=== PATIENT | male | born 1955 | race Caucasian/White ===

== ENCOUNTER 2025-01-12 03:57 | Inpatient (IN) | payer MEDICARE, OTHER, SELFPAY ==
[2025-01-11 19:46] VITALS: BP 130/57
[2025-01-11 22:20] VITALS: BMI 28.0
[2025-01-11 22:35] LABS: Hematocrit 22.4 % (39.0-52.0); Hemoglobin 7.2 g/dL (13.0-18.0); Mean Corp Hgb Conc. 32.1 g/dL (33.0-37.0); Mean Corpuscular Volume 98.2 fL (80.0-94.0); Nucleated Red Blood Cells % 0 % (-); Platelet Count 58 10^3/uL (130-400); Red Cell Dist. Width 15.1 % (11.5-14.5)
[2025-01-11 22:50] LABS: ALT (SGPT) 18 U/L (0-50); AST (SGOT) 30 U/L (17-59); Albumin 3.8 g/dl (3.5-5.0); Alkaline Phosphatase 141 U/L (38-126); Blood Urea Nitrogen 20 mg/dl (9-20); Calcium 8.4 mg/dl (8.4-10.2); Carbon Dioxide 28 mmol/L (22-30); Chloride 104 mmol/L (98-107); Estimated Creatinine Clearance 72 ml/min; Glucose 164 mg/dl (70-99); Potassium 4.7 mmol/L (3.5-5.1); Sodium 136 mmol/L (135-145); Total Protein 6.9 g/dl (6.3-8.2); eGFR > 60.00
[2025-01-11 22:52] LABS: Troponin I < 0.012 ng/ml
[2025-01-11 23:00] VITALS: BP 109/57
[2025-01-11] MEDS: OFIRMEV 100 IV (23:23)
--- NOTE | 2025-01-11 23:24 | ED.GENMED ---
History of Present Illness
General
Chief Complaint: Chest Pain
Time Seen by Provider: 01/11/25 21:55
History of Present Illness
History of Present Illness:
69-year-old male with history of oropharyngeal cancer currently on admission, cirrhosis associated nonalcoholic fatty liver disease, hypertension, hyperlipidemia, former tobacco abuse, and [id number]-cugedywtt diabetes presents to the emergency
department for evaluation of abrupt onset of central chest pain radiating to the mid back. Began 2-3 hours ago, now improved. Also noted to be febrile on arrival. Does have a mild cough and chest congestion. Has chronic lower extremity edema which
he states is unchanged. Also of note underwent esophageal variceal banding at [facility] 3 weeks ago and was treated with a 1 week course of cefuroxime. Has required blood transfusions due to persistent bleeding from esophageal varices, most
recently last week he denies any sore throat, low back pain, or dysuria
Past History
Past History
ED Past Medical History: CAD, GERD, HTN, Hypercholesterolemia, NIDDM and Other (Chronic back pain, chronic neck pain)
ED Past Surgical History: Cardiac (Stents) and Tonsilectomy
Social History
Tobacco: Former smoker
Alcohol: None
Drug: None
Review of Systems
Review of Systems
Allergies reviewed?: Yes
All Other Systems: ROS reviewed and negative except as documented in HPI and ROS
Phy Exam
Physical Exam
Physical Exam:
GEN: Well appearing, NAD, WDWN
HEENT: Oral mucosa moist, no scleral icterus
Cardiac: Regular rate, and rhythm, no murmur
Lung: No respiratory distress, no tachypnea, lungs CTAB
MSK: Marked BLE edema with venous stasis dermatitis
Skin: Generally pale, no jaundice
Neuro: AO x3, moves all extremities freely
Psych: Calm, cooperative
Scores
Heart Score for Chest Pain Patients
STEMI patient?: No
History: Slightly or Non-Suspicious
ECG: Normal
Age: >45 - <65 years
Risk Factors: >/= 3 Risk Factors or History of CAD
Troponin: </= Normal Limit
Heart Score for Chest Pain Patients: 3
Heart Score Risk: 2.5% MACE over next 6 weeks
Course
Orders/Labs/Results
Orders:
Orders
01/11/25 19:45
ECG [Electrocardiogram (*1)] Urgent
Reason for Study: Chest Pain
EKG- Treatment ONCE
01/11/25 19:49
Chest [CR Chest - 2 Views ] Urgent
Comment:
Reason For Exam: chest pain
01/11/25 22:12
Cardiac Monitoring- Treatment ONCE
IV Insert/Care/Rem.- Treatment PRN
01/11/25 22:13
EKG- Treatment ONCE
01/11/25 22:16
Type And Crossmatch [Type+Screen] Urgent
Complete Blood Count/With Diff Urgent
Comprehensive Metabolic Panel Urgent
Lactic Acid Q4H
Comment: ON ICE, CANCEL 2ND ORDER IF FIRST LACTIC ACID LEVEL <2
Troponin I Urgent
Blood Culture Q20M
ALDA Source: Blood/Venous
Specimen Description:
Comment: Urgent from separate sites. If patient screens positive for possible sepsis
01/11/25 23:09
ABO2 Urgent
BBK Wristband Number:
Associate notified that ABO2 has been ordered: [id number]
Date: 01/11/25
Time: 22:50
Director Of Curriculum And Instruction ID: [id number]
Blood Culture Q20M
ALDA Source: Blood/Venous
Specimen Description:
Comment: Urgent from separate sites. If patient screens positive for possible sepsis
01/11/25 23:12
COVID-19 Antigen Urgent
Source: Nasal Swab
Influenza A+B Rapid Molecular Urgent
ALDA Source: NSWAB
Specimen Description:
01/11/25 23:16
Acetaminophen 1000MG/100Ml [Ofirmev] 1,000 mg in 100 ml IV ONCE
Acetaminophen IV Indication:: ED Narcotic Naive Pt-ONCE
01/11/25 23:29
Urinalysis Reflex To Culture Urgent
Date Specimen was Collected: 01/11/25
Time Specimen was Collected: 23:28
01/11/25 23:35
Blood Bank Products [* Blood Bank Products] Urgent
Blood Bank Products: *Packed RBC Leuko(PRBC's)
Quantity: 1
Transfuse Today: Yes
Reason: Anemia
01/12/25 00:06
CT Chest PE Study Urgent
Comment:
Reason For Exam: chest pain/hypoxia
01/12/25 00:07
0.9% Sodium Chloride 1000 ml [Nss] 1,000 ml IV BOLUS
01/12/25 00:12
CefTRIAXone [Rocephin] 1,000 mg IV NOW STA
01/12/25 03:30
Admit/Transfer Patient As Directed
Co-Sign Provider:
Level of Care: Inpatient admission
Assign to:: IMU- Intermediate Care
Physician / Group: Gabi
Diagnosis: Fever
Reason for Hospitalization: Pneumonia, anemia
Expected length of stay greater than two midnights?: Yes
ELOS- Estimated Length of Stay in days: 2
I certify the patient meets the requirements for IP care: Yes
PRN Pain Medication Management As Directed
May give lesser potent ordered pain med per pt: Yes
preference::
Protocol:: Medication orders for pain may be administered in a
manner that supports deferring to patient preference
when the pt is:
- Requesting an ordered lesser potent pain medication.
Least to most potent pain medications are defined
as: acetaminophen < NSAID < tramadol < opioids
(morphine, oxycodone, hydromorphone).
- Requesting a lesser dose of the same medication IF
ORDERED.
- Requesting a less intrusive route of administration
if both routes are prescribed by the provider (PO <
IV).
01/12/25 03:32
Code Status As Directed
Resuscitation Status: Full Code
01/12/25 03:37
Doxycycline Hyclate [Vibramycin] 100 mg 0.9% Sodium Chloride 250 ml [Nss] 250 ml IV NOW
Midodrine [ProAmatine] 5 mg PO NOW STA
Pantoprazole [Protonix IV] 40 mg IV NOW STA
01/12/25 03:46
0.9% Sodium Chloride [Nss (Preservative Free)] 10 ml IV NOW STA
01/12/25 Breakfast
1800 calorie (15 carb) Diabetic
At Your Request: Full Participation
01/12/25 06:27
0.9% Sodium Chloride 1000 ml [Nss] 1,000 ml IV 75 mls/hr
Acetaminophen [Tylenol] 650 mg PO Q4HPRN PRN
Albuterol [ProAIR HFA INHALER] 2 puff INH R Q4HPRN PRN shortness of breath
Cefepime HCl [Maxipime] 1,000 mg IV Q6
Guaifenesin/Dextromethorphan [Robitussin Dm] 5 ml PO Q4HPRN PRN
Ondansetron Injectable [Zofran] 4 mg IV Q6HPRN PRN
Oxycodone [Roxicodone] 15 mg PO QID PRN moderate pain moderate pain
01/12/25 06:27
Respiratory Culture/Gram Stain Urgent
ALDA Source: Sputum
Specimen Description:
Activity As Directed
Activity Level: Out of Bed-Early Mobility
Bedside Glucose Monitoring As Directed
Frequency: AC&HS
Intake/ Output As Directed
Frequency: Per unit guidelines
Medical Records Request [Obtain Records] As Directed
Dates of Information to be Released: August 24 2024 - January 10
Type of Information Requested: Discharge Summary
Consults
Orthostatic Vital Signs As Directed
Orthostatic VS Frequency: Daily
Pneumatic Compression Sleeves As Directed
Type: Knee high
Vital Signs As Directed
Frequency: Per unit guidelines
Weight As Directed
Frequency: Once
Comment: on admission
O2 Therapy [RESP] Routine
Nasal Cannula Liter Flow: 2 LPM
Titrate/Wean O2 to maintain O2 sat greater than (%): 95
Special Instructions: Wean as tolerated
Pulse Ox/cont/shift [RESP] Routine
Quantity: 1
Special Instructions: notify provider if SPO2 < 91%
Pt Eval And Treat Routine
Activity Level: With Assistance
DX Deep Vein Thrombosis Video Routine
01/12/25 07:30
Insulin Aspart Corrective Low [Novolog Flexpen-Low Resistance] See Protocol SC AC
01/12/25 08:00
Doxycycline [Vibramycin] 100 mg PO BID
FOLic ACID [Folvite] 1 mg PO DAILY
Guaifenesin [Mucinex] 600 mg PO Q12
Linaclotide [Linzess] 72 mcg PO DAILY
Oxycodone Controlled Release [Oxycontin (Controlled Release)] 15 mg PO Q12
Sennosides [Senokot] 17.2 mg PO DAILY
Sitagliptin Phosphate [Januvia] 100 mg PO DAILY
01/12/25 13:19
Legionella Urinary Antigen Routine
ALDA Source: Urine
Specimen Description:
MRSA Screen Routine
ALDA Source: Nose
Specimen Description:
Strep pneumoniae Antigen Routine
ALDA Source: Urine
Specimen Description:
01/12/25 14:22
H&H Q8H
01/12/25 20:00
Pantoprazole [Protonix IV] 40 mg IV Q12
01/13/25 05:23
Basic Metabolic Panel IN AM
Iron IN AM
Total Iron Binding IN AM
01/13/25 05:24
Ammonia IN AM
Complete Blood Count/No Diff IN AM
Abnormal Lab Results
01/11/25 01/11/25
22:16 23:29
WBC 4.4 L 10^3/uL
(4.8-10.8)
RBC 2.28 L 10^6/uL
(4.70-6.10)
Hgb 7.2 L g/dL
(13.0-18.0)
Hct 22.4 L %
(39.0-52.0)
MCV 98.2 H fL
(80.0-94.0)
MCH 31.6 H pg
(27.0-31.0)
MCHC 32.1 L g/dL
(33.0-37.0)
RDW 15.1 H %
(11.5-14.5)
Plt Count 58 L 10^3/uL
(130-400)
Absolute Lymphs (auto) 0.3 L 10^3/uL
(1.2-3.4)
Neutrophils % 82.4 H %
(42.2-75.2)
Lymphocytes % 7.4 L %
(20.5-51.1)
Glucose 164 H mg/dl
(70-99)
Alkaline Phosphatase 141 H U/L
(38-126)
Urine Glucose 4+ A
(Negative)
Crossmatch IS Only See Detail
01/11/25 22:16
01/11/25 22:16
Vital Signs
Initial and Last Documented VS:
Initial Vital Signs
Temp Pulse Resp BP Pulse Ox
100.2 F 96 16 130/57 98
01/11/25 19:46 01/11/25 19:46 01/11/25 19:46 01/11/25 19:46 01/11/25 19:46
Last Documented Vital Signs
Temp Pulse Resp BP Pulse Ox
98.2 F 64 16 93/66 97
01/13/25 11:18 01/13/25 10:12 01/13/25 10:12 01/13/25 10:12 01/13/25 08:00
MDM/Problems Addressed
MDM/Problems Addressed:
69-year-old male presenting with abrupt onset of chest pain rating to the back that resolved upon arrival to the ED febrile and hypoxic. Initial workup reveals mild leukopenia, otherwise unremarkable labs. Chest x-ray without clear infiltrate. He
was noted to be persistently hypoxic in the upper 80s to low 90s on room air and placed on supplemental oxygen. COVID and flu are negative. Given that he has an indwelling port we will send him for a CTA to evaluate for PE or occult pneumonia.
Likely will require admission. Signed out to Ed Cayden FRANCO pending CT
Comment
Comment:
EKG independently interpreted by me shows normal sinus rhythm at a rate of 94, subtle ST depressions laterally suspicious for LVH, no acute ischemic changes. Chest x-ray independently interpreted by me shows prominent pulmonary vasculature but no
other acute infiltrates
*Pulse Oximetry
SaO2: 91
Oxygen Mode of Delivery: Room air
Patient hypoxic: no
*Critical Care Note
Total Time (30-74mins, 75-104mins- exclusive of procedures): Not Applicable
ED Attending Note
-
Portions of this chart may have been created with voice recognition software.� Occasional wrong word or��sound alike� substitutions may have occurred due to the inherent limitations of voice recognition software.
Discharge Plan
Departure
Patient Disposition: Admit
Date of Disposition: 01/12/25
Time of Disposition: 02:36
Admit to: Telemetry
Admit to doctor: Gabi
Presentation/result/management discussed w/ accepting MD/DO: Hospitalist
Patient with high blood pressure during this ER visit?: No
Condition: Good
Covid-19: Not Applicable
Discharge Problem:
Bronchiolitis, Anemia
Interventions
Interventions:
*Risk Screen - Suicide Last Done: 01/11/25 19:46
*General Assessment Last Done: 01/11/25 19:46
*Neglect/Abuse Screening Last Done: 01/11/25 22:09
*ED- Fall Risk Assessment Last Done: 01/11/25 19:46
*ED COVID-19 Vaccine History Last Done: 01/11/25 19:46
*Nursing Disposition Last Done: 01/12/25 06:15
ED- Cardiac Assessment Last Done: 01/11/25 22:09
Discharge Date and Time
Discharge Date/Time: 01/12/25 06:15
[2025-01-11 23:39] LABS: COVID-19 Antigen Negative (Negative)
[2025-01-11 23:56] LABS: Urine Character Clear (Clear)
[2025-01-12] VITALS (56 sets, daily range): BP systolic 78–126; BP diastolic 41–71; PULSE 75; BMI 28.1
[2025-01-12] MEDS: NSS 1000 IV ×2 (00:37→08:13)
[2025-01-12] MEDS: ROCEPHIN 1000 MG IV (00:37)
--- NOTE | 2025-01-12 03:16 | HPS.HSE ---
Family Physician
-
Family Physician: NOT KNOW UNKNOWN - PT DOES
Chief Complaint
-
chest pain
History of Present Illness
This is a 69-year-old with past medical history of esophageal cancer status post surgery and chemotherapy finishing about 2 years ago, nonalcoholic cirrhosis complicated by esophageal varices with history of variceal bleeding status post banding
presenting to the emergency department with chest pain.
According to spouse patient has been having intermittent cough for a while now with the cough appeared to be more prominent today. There was associated rigors or chills. The patient also became short of breath and was hypoxic to the 80s at home.
They noted that he was tachycardic. They did not measure a temperature. There was no diaphoresis. He has no sick contacts. Patient reported feeling lightheaded. Since his discharge from [facility] few weeks ago he denies having any melena.
He denies any hematochezia. There has been no nausea vomiting or hematemesis. He denies any abdominal pain. No history of ascites. Spouse report history of bilateral lower extremity swelling for which he was diagnosed with lymphedema in August.
No known history of congestive heart failure. No prior history of CAD. Patient has more pleuritic type chest pain without any radiation. Pain is worse with inspiration. Denies any prior history of PE/DVT. Has been no known sick contacts.
Spouse reports glucose as high as 210 at home.
Here in the emergency department he arrived with a temperature of 102.2, he was requiring 2 L of oxygen, blood pressure was as low as 77 systolic. ECG shows a normal sinus rhythm at a rate of 94 and nonischemic. Troponin was negative. UA was
negative. Patient had hemoglobin of 7.2, platelet of 58 and a white count of 4.4. Electrolytes were all normal. BUN/creatinine were normal. Glucose was 164. Chest x-ray was unremarkable except for some prominence of the pulmonary interstitium
which was previously seen.. CT of the chest showed no evidence of consolidative pneumonia, there is tree-in-bud distribution in the left lower lobe with a few scattered subcentimeter pulmonary nodules. COVID flu were negative.
Medical History
Past Medical History
Past Medical History: Reports Other
Additional Past Medical History:
Esophageal cancer status post surgery and chemo
Cirrhosis (unknown thought to be hep C)
Varices status post total bleeding status post banding
Hyperlipidemia
Past Surgical History: Reports Other
Social History
Tobacco: Former Smoker
Alcohol: None
Drug: None
Personal:
Living: With Family
Family History
Family History: Not pertinent
Allergies / Home Medications
Allergies reflects when Allergies were last updated in [employer].
Home Medications with original date entered in [employer]
Allergy/Medication List:
Allergies
Allergy/AdvReac Type Severity Reaction Status Date / Time
Penicillins Allergy Unknown Verified 01/11/25 19:45
Home Medications
Pravastatin Sodium 20 mg PO HS 01/29/20
linaclotide 72 mcg capsule (Linzess) 72 mcg PO DAILY 01/29/20
oxycodone 15 mg tablet 15 mg PO QID 01/29/20
oxycodone 15 mg tablet,crush resistant,extended release 12 hr (OxyContin) 15 mg PO Q12 01/29/20
albuterol sulfate 90 mcg/actuation aerosol inhaler (ProAir HFA) 2 puff inhalation Q4HPRN PRN shortness of breath #8.5 grams 12/10/22
carvedilol 3.125 mg tablet 3.125 mg PO BID 01/12/25
cyanocobalamin (vitamin B-12) 1,000 mcg tablet 1,000 mcg PO DAILY 01/12/25
empagliflozin 12.5 mg-linaglipt 2.5 mg-metform ER 1,000 mg tablet,24hr (Trijardy XR) 1 tab PO BID 01/12/25
ergocalciferol (vitamin D2) 1,250 mcg (50,000 unit) capsule (Vitamin D2) 1,250 mcg PO QWEEK 01/12/25
folic acid 1 mg tablet 1 mg PO DAILY 01/12/25
ondansetron 4 mg disintegrating tablet 4 mg PO Q8H PRN nausea 01/12/25
ondansetron 8 mg disintegrating tablet 8 mg PO Q8H PRN nausea 01/12/25
pantoprazole 40 mg tablet,delayed release 40 mg PO BID 01/12/25
sennosides 8.6 mg tablet (senna) 17.2 mg PO DAILY 01/12/25
Review of Systems
-
History Source: Patient and Family
Constitutional: Reports Fever
EENT: Reports No Symptoms
Respiratory: Reports Cough and Trouble Breathing
Cardiac: Reports Chest Pain
Abdomen/GI: Reports No Symptoms
: Reports No Symptoms
Musculoskeletal: Reports No Symptoms
Skin: Reports No Symptoms
Neurological: Reports No Symptoms
Endocrine: Reports No Symptoms
Hematologic/Lymphatic: Reports No Symptoms
Psych: Reports No Symptoms
Physical Exam
Vital Signs
Vital Signs
Temp Pulse Resp BP Pulse Ox
98.7 F 77 14 86/46 99
01/12/25 02:37 01/12/25 02:37 01/12/25 02:37 01/12/25 02:37 01/12/25 02:32
Physical Exam
General: Well Developed, Well Nourished and No Apparent Distress
HEENT: NormoCephalic, Moist mucous membranes and Atraumatic
Respiratory: Crackles (Left lower lobe)
Cardiac: S1/S2 and Regular Rhythm; No Murmur or Rub
GI: Soft, Non Tender, Non Distended and Normal Bowel Sounds; No Organomegaly
Rectal: Deferred by Provider
Musculoskeletal: No Clubbing, No Cyanosis and No Edema
Skin: No Rash
Neuro: AO x 3 and Nonfocal/grossly intact
Psych: Calm
Laboratory Results
-
01/11/25 22:16
01/11/25 22:16
Laboratory Results
Lactic Acid Cancelled 01/12/25 02:15
Total Bilirubin 0.9 mg/dl (0.2-1.3) 01/11/25 22:16
AST 30 U/L (17-59) 01/11/25 22:16
ALT 18 U/L (0-50) 01/11/25 22:16
Alkaline Phosphatase 141 U/L (38-126) H 01/11/25 22:16
Troponin I < 0.012 ng/ml 01/11/25 22:16
Data Reviewed
-
Diagnostic Radiology: Image Personally Visualized and interpreted
CT Scan: Report Reviewed by me
Medical Tests (Nuc Med, Echo, EKG etc): Image Personally Visualized and interpreted
Lab Data: Labs Reviewed by me
Old Records: Reviewed
Impression/Plan
-
IMPRESSION:
69-year-old with history of cirrhosis complicated by esophageal varices with bleeding status post banding, last bleeding was about 3 weeks ago at [facility] for which she received banding and prophylactic antibiotic. Presents to the emergency
department with episode of chills rigors shortness of breath and a fever to 102 here in the emergency department. There was no leukocytosis. CBC notable for hemoglobin of 7.2 which is down from his discharge level of around 8.52 to 3 weeks ago.
He has chronically low platelet count which is unchanged. Labs otherwise unremarkable. Imaging with a CT scan is negative for PE and did show possible atypical pneumonia in the left lower lobe. Patient currently alert and oriented x 3 without
signs of acute encephalopathy.
PLAN:
1. Fever -source unclear, suspect early left lower lobe pneumonia versus bronchitis. Boderline BP but pt with cirrhosis and varices. MAP > 55
- admit to imu
- blood cx sent
- u/a negative,
- covid/flu negative, neurologically intact
- no ascites on exam and no h/o ascites
- cough, hypoxia, pleuritic cp, crackles on exam and CT finding c/w early pna. Treat with ceftriaxone/doxycycline for now
- mrsa swab
- legionella and pneumococcal ag
- respiratory tx, pain control and cough suppression
2. Anemia - H/O LION & variceal bleed s/p banding. Denies any recent GI blood loss. Clear vault on rectal. Heme negative. No evidence of blood loss
- transfusing 1 unit now
- rectal exam
- trend H&H q 8
- place on regular diet
- ppi bid
- iron panel in am
3. Cirrhosis w/ varices
- due to low bp holding coreg
- no encephalopathy at this time and no ascites
- obtain records from [place] in am.
4. DM II
- holding metformin/empagliflozin
- sitagliptin
- sliding scale insulin
DVT PPX - SCDs for now
Code status - Full Code
[2025-01-12] MEDS: PROTONIX IV 40 MG IV ×2 (04:33→20:04)
[2025-01-12] MEDS: NSS (PRESERVATIVE FREE) 10 ML IV ×2 (04:33→20:05)
[2025-01-12] MEDS: VIBRAMYCIN 260 MG IV (04:37)
--- NOTE | 2025-01-12 07:22 | PTCARENOTE ---
Patient arrived to unit at 06:30, uncooperative. Report given to oncoming nurse.
[2025-01-12] MEDS: MUCINEX 600 MG PO ×2 (08:09→20:04)
[2025-01-12] MEDS: MAXIPIME 1000 MG IV ×4 (08:09→23:03)
[2025-01-12] MEDS: VIBRAMYCIN 100 MG PO ×2 (08:09→20:04)
[2025-01-12] MEDS: FOLVITE 1 MG PO (08:09)
[2025-01-12] MEDS: JANUVIA 100 MG PO (08:09)
[2025-01-12] MEDS: SENOKOT 17.2 MG PO (08:09)
[2025-01-12] MEDS: STERILE WATER FOR INJECTION 10 ML IV ×4 (08:10→23:04)
[2025-01-12] MEDS: LINZESS PO (08:14)
[2025-01-12 08:17] LABS: Glucose - Point of Care 151 mg/dl (70-99)
--- NOTE | 2025-01-12 08:52 | PTCARENOTE ---
Rec'd pt this AM shortly after 0630 arrival from ED. Reviewed all meds in detail with pt prior to med administration. fPt refused senna, insulin, and oxycontin 15mg controlled release. He states he takes 20mg at home and refused to take it. RN
notified Dr. Saez and pharmacy of this issue. Pt can be argumentative, requires firm limit and boundary setting. spouse at bedside. BP improved to 99 to low 100s systolic so no levo started at this time. VAT team accessed port. IVF infusing.
orientation to unit complete.
[2025-01-12] MEDS: OXYCONTIN (CONTROLLED RELEASE) 20 MG PO ×2 (10:41→20:04)
--- NOTE | 2025-01-12 13:24 | PTCARENOTE ---
Pt continues to requires firm limits and boundaries but is generally cooperative with most care. Sig other reported pt nearly fell off the bed while sitting on the side of it. RN then educated pt on fall precautions and informed him that he may no
longer sit on the side of the bed but must sit in the chair or in the bed and must ring for assistance getting up. Pt agreed and is now sitting in the chair. one assist with rolling walker. midodrine given as ordered.
[2025-01-12 13:49] LABS: Glucose - Point of Care 143 mg/dl (70-99)
[2025-01-12] MEDS: ROXICODONE 15 MG PO (14:32)
[2025-01-12 14:38] LABS: Hematocrit 20.3 % (39.0-52.0); Hemoglobin 6.7 g/dL (13.0-18.0)
--- NOTE | 2025-01-12 15:40 | W.PN.HOSP.TC ---
Today's Communication/Plan
-
see bold
Assessment / Plan
Assessment / Plan
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
presenting to the emergency department with chest pain. According to spouse patient has been having intermittent cough for a while now with the cough appeared to be more prominent today. There was associated rigors or chills.
Chest CT: No findings to confirm central pulmonary embolism. Evaluation of peripheral pulmonary arterial branches limited at least in part due to respiratory/motion artifact and peripheral pulmonary embolism cannot be excluded.
Some tree in bud type pulmonary nodules, particularly in the left lung suggest inflammatory/infectious etiology such as bronchiolitis.
Coronary artery calcifications.
A/P:
1.
Acute hypoxic respiratory insufficiency
Bronchiolitis
Fever
-Chest CT negative for PE, negative for pneumonia, shows bronchiolitis
-Negative for COVID, negative for flu, negative for Legionella and strep antigens, RSV negative
-Continue empiric cefepime, send sputum for culture if able to produce one
-Continue supportive care, trend fever and white count, wean oxygen as tolerated
2. Anemia
- H/O LION & variceal bleed s/p banding. Denies any recent GI blood loss. Clear vault on rectal. Heme negative. No evidence of blood loss
- Hemoglobin 6.7 status post 1 unit of packed red blood cells, down from 7.2
- Transfuse second unit of packed red blood cells, check iron studies, check B12/folate/methylmalonic acid, check direct Remberto, LDH, haptoglobin
- Trend hemoglobin, consult hematology
3. Cirrhosis w/ varices
- Hold Coreg secondary to hypotension
- No encephalopathy at this time and no ascites
- Obtain records from [place] in am.
4. DM II
- Resume, metformin/empagliflozin, continue sitagliptin
- Patient refusing sliding scale insulin
5. Hypotension without shock
- Has not required Levophed, lactic acid 1.4
- Likely secondary to bronchiolitis/infection
- Continue IV fluids, start midodrine as needed
6. History of esophageal cancer status postsurgery and chemo
- Has chronic hoarse voice
DVT PPX - SCDs due to anemia
Code status - Full Code
Updated at bedside 01/12
Physical Exam
General: No acute distress
HEENT: Normocephalic, Atraumatic, EOMI, MMM, hoarse voice
Respiratory: Clear to Auscultation bilaterally
Cardiac: Normal S1/S2, Regular Rate and Rhythm
GI: Soft, Nontender, Nondistended, Normal Bowel Sounds
Extremities: No Clubbing, Cyanosis
Bilateral lower extremity edema noted
Skin changes reflective of chronic venous stasis dermatitis
Neuro: Nonfocal/Grossly Intact
Psych: Calm, Cooperative
Anticipated Discharge: > 48 hours
Subjective/Interval History
-
Date of Service: January 12, 2025
Objective Data
-
Labs:
Laboratory Results
01/12/25
14:22
Hgb 6.7 L*
Hct 20.3 L*
Vital Signs:
Vital Signs
Temp Pulse Resp BP Pulse Ox
98.7 F 76 17 100/52 96
01/12/25 04:25 01/12/25 13:15 01/12/25 13:15 01/12/25 13:00 01/12/25 06:00
I&O
01/11/25 01/12/25 01/13/25
06:59 06:59 06:59
Intake Total 250 / 250
Balance 250 / 250
[2025-01-12 18:02] LABS: Glucose - Point of Care 181 mg/dl (70-99)
[2025-01-12 21:42] LABS: Glucose - Point of Care 206 mg/dl (70-99)
[2025-01-12] MEDS: NON-FORMULARY ITEM 1 TABLET PO (23:04)
[2025-01-13] VITALS (24 sets, daily range): BP systolic 92–120; BP diastolic 22–77
--- NOTE | 2025-01-13 01:21 | PTCARENOTE ---
ax3- oob x1 to chair- prbc's infused no s/s of reaction. sinus bp wnl afebrile- with with pleuritic pain with deep inspiration. 92-95% on room air. abreu but recovers- legs are plus 3 pitting edema bilaterally.
[2025-01-13] MEDS: ROXICODONE 15 MG PO (03:23)
[2025-01-13] MEDS: TYLENOL 650 MG PO (03:28)
[2025-01-13] MEDS: MAXIPIME 1000 MG IV (05:12)
[2025-01-13] MEDS: STERILE WATER FOR INJECTION 10 ML IV ×2 (05:12→11:42)
[2025-01-13 05:44] LABS: Ammonia < 9 umol/L (9-30)
[2025-01-13 05:59] LABS: Blood Urea Nitrogen 17 mg/dl (9-20); Calcium 7.8 mg/dl (8.4-10.2); Carbon Dioxide 28 mmol/L (22-30); Chloride 108 mmol/L (98-107); Estimated Creatinine Clearance 81 ml/min; Glucose 189 mg/dl (70-99); Iron 36 ug/dl (49-181); LDH 142 U/L (120-246); Potassium 4.0 mmol/L (3.5-5.1); Sodium 137 mmol/L (135-145); eGFR > 60.00
[2025-01-13 05:59] LABS: Hematocrit 22.2 % (39.0-52.0); Hemoglobin 7.2 g/dL (13.0-18.0); Mean Corp Hgb Conc. 32.4 g/dL (33.0-37.0); Mean Corpuscular Volume 97.4 fL (80.0-94.0); Platelet Count 62 10^3/uL (130-400); Red Cell Dist. Width 15.8 % (11.5-14.5)
[2025-01-13 06:08] LABS: Total Iron Binding Capacity 240 ug/dl (261-462)
--- NOTE | 2025-01-13 06:30 | PTCARENOTE ---
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
[2025-01-13 07:06] LABS: Folate 15.2 ng/ml (2.76-20); Vitamin B12 881 pg/ml (239-931)
--- NOTE | 2025-01-13 07:24 | W.PN.HOSP.TC ---
Addendum entered and electronically signed by Molly Sanon MD 01/13/25 07:55:
narrow abx from Cefepime to Ceftriaxone as cultures remain negative; patient with significant clinical improvement
Original Note:
Today's Communication/Plan
-
PRBC now, repeat hg at noon. If Hg does not rise appropriately, will consult GI given concern of on-going bleeding
Lasix 20mg IV x 1 now and monitor response
Midodrine PRN
Continue Cefepime/Doxy
Assessment / Plan
Assessment / Plan
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
presenting to the emergency department with chest pain. According to spouse patient has been having intermittent cough for a while now with the cough appeared to be more prominent today. There was associated rigors or chills.
Chest CT: No findings to confirm central pulmonary embolism. Evaluation of peripheral pulmonary arterial branches limited at least in part due to respiratory/motion artifact and peripheral pulmonary embolism cannot be excluded.
Some tree in bud type pulmonary nodules, particularly in the left lung suggest inflammatory/infectious etiology such as bronchiolitis.
Coronary artery calcifications.
A/P:
1.
Acute hypoxic respiratory insufficiency
Bronchiolitis
Fever
-Chest CT negative for PE, negative for pneumonia, shows bronchiolitis
-Negative for COVID, negative for flu, negative for Legionella and strep antigens, RSV negative
-Continue empiric cefepime/Doxy day 2
-Continue supportive care, trend fever and white count, wean oxygen as tolerated
2. Anemia
- H/O LION & variceal bleed s/p banding. Denies any recent GI blood loss. Clear vault on rectal. Heme negative. No evidence of blood loss
- on arrival to ER Hg 7.2 s/p 1 unit PRBC with follow up Hg 6.7 s/p additional unit. Hg this AM 7.2 - may have been related to dilution?
- iron studies show low iron % sat
-continue BID PPI IV
-repeat hg at noon
-if continues to trend down, would consult GI given LION and concern for bleed (multiple recent hospitalizations at [place] for UGIB)
3. Cirrhosis w/ varices
- Hold Coreg secondary to hypotension
- No encephalopathy at this time and no ascites
- Obtain records from [place] in am.
Thrombocytopenia 2/2 Cirrhosis
-PLT 62 this morning
4. DM II
- Resume, metformin/empagliflozin, continue sitagliptin
- Patient refusing sliding scale insulin
5. Hypotension without shock
- Has not required Levophed, lactic acid 1.4
- Likely secondary to bronchiolitis/infection
- IVF off, midodrine PRN
Lower extremity Swelling
Lymphedema
-per , swelling has increased significantly over past few months in relation to hospitalizations, concern that volume overload contributing
-lasix 20mg IV x 1 with transfusion, monitor response
6. History of esophageal cancer status postsurgery and chemo
- Has chronic hoarse voice
DVT PPX - SCDs due to anemia
Code status - Full Code
Updated at bedside 01/13
51 minutes spent on patient care
Anticipated Discharge: 24 - 48 hours
Subjective/Interval History
-
Date of Service: January 13, 2025
overall feeling better than when he came in
cough improved
no fevers overnight
Objective Data
-
Labs:
Laboratory Results
01/13/25 01/13/25
05:23 05:24
WBC 4.1 L
Hgb 7.2 L
Hct 22.2 L
Plt Count 62 L
Sodium 137
Potassium 4.0
Chloride 108 H
Carbon Dioxide 28
BUN 17
Creatinine 0.8
Glucose 189 H
Calcium 7.8 L
Vital Signs:
Vital Signs
Temp Pulse Resp BP Pulse Ox
98.3 F 71 13 94/54 95
01/13/25 04:22 01/13/25 06:21 01/13/25 06:21 01/13/25 06:21 01/12/25 18:34
I&O
01/12/25 01/13/25 01/14/25
06:59 06:59 06:59
Intake Total 250 / 250 1310 / 1310
Output Total 1000 / 1000
Balance 250 / 250 310 / 310
Review of Systems
-
History Source: Patient
All other systems: Reviewed and negative
Physical Exam
-
General: No Apparent Distress
HEENT: PERRLA
Respiratory: Clear to Auscultation
Cardiac: Regular Rhythm and S1/S2
GI: Soft and Nontender
Musculoskeletal: Edema, Right Lower Extrem and Edema, Left Lower Extrem
Skin: Warm and Dry; Negative Rash
Neuro: AO x 3
Psych: Calm
Data Reviewed
-
Diagnostic Radiology: Report Reviewed by me
Labs: Labs Reviewed by me
[2025-01-13] MEDS: NON-FORMULARY ITEM 1 TABLET PO ×2 (07:52→17:43)
[2025-01-13] MEDS: OXYCONTIN (CONTROLLED RELEASE) 20 MG PO ×2 (07:56→19:58)
[2025-01-13] MEDS: FOLVITE 1 MG PO (07:56)
[2025-01-13] MEDS: MUCINEX 600 MG PO ×2 (07:56→19:58)
[2025-01-13] MEDS: VIBRAMYCIN 100 MG PO ×2 (07:56→19:58)
[2025-01-13] MEDS: SENOKOT 17.2 MG PO (07:57)
[2025-01-13] MEDS: LASIX 20 MG IV (07:57)
[2025-01-13] MEDS: PROTONIX IV 40 MG IV ×2 (07:57→19:58)
[2025-01-13] MEDS: NSS (PRESERVATIVE FREE) 10 ML IV ×2 (07:57→19:58)
[2025-01-13 08:03] LABS: Glucose - Point of Care 134 mg/dl (70-99)
[2025-01-13] MEDS: LINZESS 72 MCG PO (08:06)
[2025-01-13 08:25] LABS: Magnesium 2.1 mg/dl (1.6-2.3)
[2025-01-13 08:45] LABS: Ferritin 69.6 ng/ml (17.9-464.0)
--- NOTE | 2025-01-13 08:52 | VATNOTE ---
Addendum entered by Demetria Alatorre RN 01/13/25 09:09:
L IV site checked, appeared moist. Flushed and did not appear to be leaking. Informed pt I would like to redress his IV because moisture under the dressing could affect skin integrity and could be a risk for infection. Pt refusing IV dressing
change. Education provided, pt continues to refuse, will continue to monitor. PCN at the bedside prior to this RN leaving the pt.
Original Note:
Routine rounds: while assessing pt's port and IV site, pt states he feels light headed whilst sitting on the edge of the bed and receiving a blood transfusion. Encouraged pt to lay down, pt refusing. PCN notified who was caring for another patient
at the time. Returned to pt and expressed concern about falling while being light headed and sitting on the edge of the bed. Pt states he will go back to bed after he stands to urinate, informed pt someone would need to stay with him while he
urinates, pt refusing to have assistance, states he will lay down after he urinates. After checking on patient frequently, asked if patient was ready to lay down, pt states he wants to stay sitting on the edge of the bed, will not allow this RN to
assist him to a laying position states 'I don't want to move.' expressing concern about pt's fall risk stating he has fallen 4 times in the past, PCN notified.
--- NOTE | 2025-01-13 09:32 | CON.ONC ---
Consultation
-
Date Consultation Requested: 01/12/25
Date Consultation Performed: 01/13/25
Requesting Provider: Dr Saez
Performing Provider: Dr Ambar Wolf
Reason for Consultation: anemia
Impression
Impression
cough, fever, bronchiolitis
anemia
recurrent variceal bleeding
borderline iron stores (ferritin < 100)
cirrhosis
chronic pancytopenia, secondary to cirrhosis and GI blood loss
h/o laryngeal cancer, 2019, treated w/ chemo/RT
Plan
Plan
antibiotics for pulmonary infection; afebrile since admission
pRBCs infusing currently
iron studies done after prbc infusion; suspect some degree of iron deficiency in addition to anemia in chronic disease - will give iron infusions
Would ask GI to see him, concern for recurrent variceal bleeding
GREG from a cancer standpoint (was laryngeal cancer, not esophgeal, per patient and path in [facility])
Monitor CBC; cytopenias are chronic
Patient History
History of Present Illness
This is a 69yo M w/ h/o laryngeal cancer in 2019, treated with chemo/RT in [place] (known to Dr Haile, med onc.). He's GREG from a cancer standpoint, has chronic hoarsenss. He has a h/o cirrhosis, with chronic cytopenias and frequent variceal
bleeding. He reports variceal bleeding x3 episodes in the past 3 months, treated at [facility]. His GI doc is Dr. Baker.
He's admitted currently with cough and fever, and chest CT suggesting possible bronchiolitis. Temp was 102.2 at admission. He's getting his second unit of prbcs for hgb of 6.7 yesterday, getting lasix as well. Iron studies are c/w iron deficiency
plus anemia of chronic disease. (ferritin < 100).
Past-Medical/Surgical History
Past Medical History
Past Medical History: Reports Other
Additional Past Medical History:
Laryngeal cancer status post surgery and chemo
Cirrhosis with GI Varices
Hyperlipidemia
Past Surgical History: Reports Other
Social History
Tobacco: Former Smoker
Alcohol: None
Drug: None
Personal:
Living: With Family
Family History
Family History: Not pertinent
Patient Medication
�Medication �Instructions �Recorded �Confirmed �Last Taken �Type
Pravastatin Sodium 20 mg PO HS 01/29/20 01/12/25 01/29/20 08:00 History
linaclotide 72 mcg capsule 72 mcg PO DAILY 01/29/20 01/12/25 01/29/20 08:00 History
(Linzess)
oxycodone 15 mg tablet 15 mg PO QID 01/29/20 01/12/25 01/30/20 04:30 History
oxycodone 15 mg tablet,crush 20 mg PO Q12 01/29/20 01/12/25 01/30/20 00:30 History
resistant,extended release 12 hr
(OxyContin)
albuterol sulfate 90 mcg/actuation 2 puff inhalation Q4HPRN PRN 12/10/22 01/12/25 Unknown Rx
aerosol inhaler (ProAir HFA) shortness of breath #8.5 grams
carvedilol 3.125 mg tablet 3.125 mg PO BID 01/12/25 01/12/25 Unknown History
cyanocobalamin (vitamin B-12) 1,000 mcg PO DAILY 01/12/25 01/12/25 Unknown History
1,000 mcg tablet
empagliflozin 12.5 mg-linaglipt 1 tab PO BID 01/12/25 01/12/25 Unknown History
2.5 mg-metform ER 1,000 mg
tablet,24hr (Trijardy XR)
ergocalciferol (vitamin D2) 1,250 1,250 mcg PO QWEEK 01/12/25 01/12/25 Unknown History
mcg (50,000 unit) capsule (Vitamin
D2)
folic acid 1 mg tablet 1 mg PO DAILY 01/12/25 01/12/25 Unknown History
ondansetron 4 mg disintegrating 4 mg PO Q8H PRN nausea 01/12/25 01/12/25 Unknown History
tablet
ondansetron 8 mg disintegrating 8 mg PO Q8H PRN nausea 01/12/25 01/12/25 Unknown History
tablet
pantoprazole 40 mg tablet,delayed 40 mg PO BID 01/12/25 01/12/25 Unknown History
release
sennosides 8.6 mg tablet (senna) 17.2 mg PO DAILY 01/12/25 01/12/25 Unknown History
Active Medications
Generic Name Dose Route Start Last Admin
Trade Name Freq PRN Reason Stop Dose Admin
Acetaminophen 650 mg 01/12/25 06:27 01/13/25 03:28
Acetaminophen 325 Mg Tablet PO 02/09/25 06:26 650 mg
Q4HPRN PRN Administration
if temp > 101 F
Albuterol 2 puff 01/12/25 06:27
Albuterol Hfa [90 Mcg/Dose] Inhaler INH
R Q4HPRN PRN
shortness of breath
Protocol
Ceftriaxone Sodium 1,000 mg 01/13/25 12:00
Ceftriaxone 1000 Mg / 10 Ml Vial IV
Q24H VERO
Dextrose 12.5 grams 01/12/25 07:00
Dextrose 50% (0.5 Grams/Ml) 50 Ml Syringe IV 02/09/25 06:59
[id number] PRN
hypoglycemia
Protocol
Doxycycline Hyclate 100 mg 01/12/25 08:00 01/13/25 07:56
Doxycycline 100 Mg Capsule PO 100 mg
BID VERO Administration
Folic Acid 1 mg 01/12/25 08:00 01/13/25 07:56
Folic Acid 1 Mg Tablet PO 02/09/25 07:59 1 mg
DAILY VERO Administration
Glucagon 1 mg 01/12/25 07:00
Glucagon 1 Mg Vial IM 02/09/25 06:59
PRN PRN
hypoglycemia - no IV access
Protocol
Guaifenesin 600 mg 01/12/25 08:00 01/13/25 07:56
Guaifenesin 600 Mg Extended Release Tablet PO 02/09/25 07:59 600 mg
Q12 VERO Administration
Guaifenesin/Dextromethorphan 5 ml 01/12/25 06:27
Guaifenesin/Dextromethorphan 200 Mg/10 Ml Cup PO 02/09/25 06:26
Q4HPRN PRN
cough
Heparin Sodium (Porcine) 250 unit 01/12/25 17:00 01/13/25 05:15
Heparin Flush Pf (100 Unit/Ml) 5 Ml Syringe IV 02/09/25 16:59 250 unit
PER PROTOCOL VERO Administration
Norepinephrine Bitartrate 4 mg in 250 mls @ 0 mls/hr 01/12/25 06:27
Levophed IV
PER PROTOCOL VERO
Protocol
Per Protocol
Insulin Aspart 0 units 01/12/25 07:30 01/13/25 07:51
Insulin Aspart Low Resistance 300 Units/3 Ml Pen.Injctr SC 02/09/25 07:29 Not Given
AC VERO
Protocol
Linaclotide 72 mcg 01/12/25 08:00 01/13/25 08:06
Linaclotide 72 Mcg Capsule PO 02/09/25 07:59 72 mcg
DAILY VERO Administration
Midodrine 5 mg 01/12/25 11:06 01/13/25 03:23
Midodrine 5 Mg Tablet PO 02/09/25 11:05 5 mg
Q4HPRN PRN Administration
for MAP<65 or SBP <90
Empaglifloz-Linaglip 0 tablet 01/12/25 20:00 01/13/25 07:52
-Metformin [Trijardy PO 02/09/25 19:59 1 tablet
Xr] 12.5-2.5-1,000 BID VERO Administration
Mg Po Bid
Ondansetron HCl 4 mg 01/12/25 06:27
Ondansetron 4 Mg/2 Ml Vial IV 02/09/25 06:26
Q6HPRN PRN
nausea/vomiting
Oxycodone HCl 15 mg 01/12/25 06:27 01/13/25 03:23
Oxycodone 15 Mg Regular Release Tablet PO 01/26/25 06:26 15 mg
QID PRN Administration
moderate pain
Oxycodone HCl 20 mg 01/12/25 10:00 01/13/25 07:56
Oxycontin 20 Mg Controlled Release Tablet PO 01/26/25 09:59 20 mg
Q12 VERO Administration
Pantoprazole Sodium 40 mg 01/12/25 20:00 01/13/25 07:57
Pantoprazole Sodium 40 Mg/10 Ml Vial IV 02/09/25 19:59 40 mg
Q12 VERO Administration
Sennosides 17.2 mg 01/12/25 08:00 01/13/25 07:57
Sennosides (Senokot) 8.6 Mg Tablet PO 02/09/25 07:59 17.2 mg
DAILY VERO Administration
Sodium Chloride 0 flush 01/12/25 07:00
Sodium Chloride 0.9% (Flush) Syringe IV 02/09/25 06:59
PER PROTOCOL VERO
Sodium Chloride 10 ml 01/12/25 20:00 01/13/25 07:57
Sodium Chloride 0.9% (Preservative Free) 10 Ml Vial IV 02/09/25 19:59 10 ml
BID VERO Administration
Sterile Water 10 ml 01/12/25 07:00 01/13/25 05:12
Sterile Water For Injection 10 Ml Vial IV 02/09/25 06:59 10 ml
Q6 VERO Administration
Sterile Water 10 ml 01/13/25 12:00
Sterile Water For Injection 10 Ml Vial IV 02/10/25 11:59
Q24H VERO
Review of Systems
-
All Other Systems: Not reviewed unless documented
Physical Exam
-
General: Well Developed, Well Nourished, No Apparent Distress, Comfortable, Conversant and Other (hoarse); Negative Respiratory Distress or Appears Chronically Ill
HEENT: Moist Mucous Membranes; Negative Jaundice
Cardiology: Normal Sinus Rhythm
Pulmonary: Clear
Musculoskeletal: Negative No Edema
Extremities: Edema (chronic brawny edema, jessica LE)
Neurology: Non Focal, No Lateralizing Symptoms and No Word Finding Difficulty
Skin: Warm and Dry
Psych: Calm and Intact Judgement/Insight
Labs
Lab Results
WBC 4.1 10^3/uL (4.8-10.8) L 01/13/25 05:24
RBC 2.28 10^6/uL (4.70-6.10) L 01/13/25 05:24
Hgb 7.2 g/dL (13.0-18.0) L 01/13/25 05:24
Hct 22.2 % (39.0-52.0) L 01/13/25 05:24
MCV 97.4 fL (80.0-94.0) H 01/13/25 05:24
MCH 31.6 pg (27.0-31.0) H 01/13/25 05:24
MCHC 32.4 g/dL (33.0-37.0) L 01/13/25 05:24
RDW 15.8 % (11.5-14.5) H 01/13/25 05:24
Plt Count 62 10^3/uL (130-400) L 01/13/25 05:24
MPV 10.8 fL (7.4-10.4) H 01/13/25 05:24
Abs Immat Gran (auto) 0.0 10^3/uL (0-0.05) 01/11/25 22:16
Absolute Neuts (auto) 3.7 10^3/uL (1.4-6.5) 01/11/25 22:16
Absolute Lymphs (auto) 0.3 10^3/uL (1.2-3.4) L 01/11/25 22:16
Absolute Monos (auto) 0.4 10^3/uL (0.1-0.6) 01/11/25 22:16
Absolute Eos (auto) 0.0 10^3/uL (0-0.7) 01/11/25 22:16
Absolute Basos (auto) 0.0 10^3/uL (0-0.2) 01/11/25 22:16
Immature Gran % 0.5 % (0-0.5) 01/11/25 22:16
Neutrophils % 82.4 % (42.2-75.2) H 01/11/25 22:16
Lymphocytes % 7.4 % (20.5-51.1) L 01/11/25 22:16
Monocytes % 9.3 % (1.7-9.3) 01/11/25 22:16
Eosinophils % 0.2 % (0-6) 01/11/25 22:16
Basophils % 0.2 % (0-2) 01/11/25 22:16
Creatinine 0.8 mg/dL (0.7-1.3) 01/13/25 05:23
Vital Signs
Vital Signs
Temp Pulse Resp BP Pulse Ox
98.3 F 74 18 96/58 97
01/13/25 08:13 01/13/25 09:00 01/13/25 08:00 01/13/25 09:00 01/13/25 07:44
[2025-01-13] MEDS: STERILE WATER FOR INJECTION IV ×2 (11:09→11:19)
[2025-01-13] MEDS: ROCEPHIN 1000 MG IV (11:42)
[2025-01-13 12:17] LABS: Hemoglobin 8.6 g/dL (13.0-18.0)
[2025-01-13 12:41] LABS: Glucose - Point of Care 156 mg/dl (70-99)
--- NOTE | 2025-01-13 13:36 | CM ---
Addendum entered by Nathanael Simons 01/13/25 14:12:
Therapy recommending HH. Spoke with . Preference is HH for RN, PT/OT services. Referral forwarded.
Original Note:
Initial assessment completed with patient who lives with his in a 1 story ranch home plus basement, no steps to enter. [employer] patient was independent in ADL's and ambulation with a rollator. Also has a SPC. No in-home services. Does drive. Does
have HC-POA. No psychiatric hospitalizations. No service. PCP is Dr. Best Ray. Pharmacy is [facility] in [place]. Discharge POC: Anticipate home with no needs.
[2025-01-13 17:32] LABS: Glucose - Point of Care 172 mg/dl (70-99)
[2025-01-13 20:56] LABS: Glucose - Point of Care 197 mg/dl (70-99)
--- NOTE | 2025-01-13 22:55 | PTCARENOTE ---
Pt sitting up in chair, ambulating in room with rw, refuses assistance with ambulation. Denies complaints at this time. Noncompliant with BP cuff at times, VSS. Pt able to take meds whole in applesauce without complication. Call correa within reach.
Care ongoing.
[2025-01-14] VITALS (8 sets, daily range): BP systolic 90–122; BP diastolic 50–75; BMI 28.8
[2025-01-14] MEDS: TYLENOL 650 MG PO (02:11)
[2025-01-14] MEDS: ROXICODONE 15 MG PO (06:05)
[2025-01-14 06:14] LABS: Hematocrit 25.2 % (39.0-52.0); Hemoglobin 8.1 g/dL (13.0-18.0); Mean Corp Hgb Conc. 32.1 g/dL (33.0-37.0); Mean Corpuscular Volume 95.8 fL (80.0-94.0); Platelet Count 60 10^3/uL (130-400); Red Cell Dist. Width 15.9 % (11.5-14.5)
[2025-01-14 07:07] LABS: Blood Urea Nitrogen 18 mg/dl (9-20); Calcium 8.2 mg/dl (8.4-10.2); Carbon Dioxide 28 mmol/L (22-30); Chloride 110 mmol/L (98-107); Estimated Creatinine Clearance 81 ml/min; Glucose 94 mg/dl (70-99); Magnesium 2.2 mg/dl (1.6-2.3); Potassium 4.2 mmol/L (3.5-5.1); Sodium 141 mmol/L (135-145); eGFR > 60.00
--- NOTE | 2025-01-14 08:04 | W.PN.HOSP.TC ---
Addendum entered and electronically signed by Molly Sanon MD 01/14/25 14:44:
Acute Bronchiolitis
sepsis was present on admission 2/2 above
-sepsis now resolved
-continue antibiotics
*will increase Lasix to BID as BP is tolerating
Original Note:
Today's Communication/Plan
-
continue antibiotics
Lasix 20mg IV QD
Hg stable without e/o maximus bleeding, will give one dose of IV iron today
Assessment / Plan
Assessment / Plan
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
presenting to the emergency department with chest pain. According to spouse patient has been having intermittent cough for a while now with the cough appeared to be more prominent today. There was associated rigors or chills.
Chest CT: No findings to confirm central pulmonary embolism. Evaluation of peripheral pulmonary arterial branches limited at least in part due to respiratory/motion artifact and peripheral pulmonary embolism cannot be excluded.
Some tree in bud type pulmonary nodules, particularly in the left lung suggest inflammatory/infectious etiology such as bronchiolitis.
Coronary artery calcifications.
A/P:
Acute hypoxic respiratory insufficiency
Bronchiolitis
Sepsis 2/2 Bronchiolitis
Fever
-Chest CT negative for PE, negative for pneumonia, shows bronchiolitis
-Negative for COVID, negative for flu, negative for Legionella and strep antigens, RSV negative
-Continue abx day 3 --> 12/14 antibiotics were narrowed from Cefepime to Ceftriaxone (+ Doxy)
-he is now off of oxygen
-continue Mucinex and Acapella
Hypotension without shock
- Has not required Levophed, lactic acid 1.4
- Likely secondary to bronchiolitis/infection
- IVF off, midodrine PRN - patient hasn't required in 24 hours
Anemia
- H/O LION & variceal bleed s/p banding. He had multiple recent admissions at [place] for UGIB (awaiting records)
- Hg did not respond appropriately to first 2 transfusions, had also received IVF - wonder if lab variability and fluid administration cause. Hg responded appropriately to 3rd transfusion and is relatively stable this morning
- iron studies show low iron % sat
- continue BID PPI IV - he is on PO BID at home
- appreciate Heme consult. I curbsided with Dr. Saez, GI. We reviewed Hg trend and the fact that patient has no evidence of active GI bleed (he had a normal brown BM on 01/13). Therefore no need for inpatient GI consult. Patient has a follow up
with a liver specialist at [facility] in February.
Lower extremity Swelling
Lymphedema
-per , swelling has increased significantly over past few months in relation to hospitalizations, concern that volume overload contributing
-he responded well to Lasix 20mg IV yesterday
-continue Lasix 20mg IV QD and monitor response in monitored setting. BP tolerating diuresis and labs stable
-patient and report he had a normal echo at [facility]
Cirrhosis w/ varices
- Coreg was held with low BP in setting of sepsis
- No encephalopathy at this time and no ascites
- plan for follow up with liver specialist in February at [facility]
Thrombocytopenia 2/2 Cirrhosis
-PLT stable
DM II
- Resume, metformin/empagliflozin, continue sitagliptin
- Patient refusing sliding scale insulin
History of esophageal cancer status postsurgery and chemo
- Has chronic hoarse voice
DVT PPX - SCDs due to anemia
Code status - Full Code
Updated at bedside 01/13
51 minutes spent on patient care
Anticipated Discharge: 24 - 48 hours
Subjective/Interval History
-
Date of Service: January 14, 2025
patient states he urinated a lot after Lasix given yesterday
and legs are a bit less swollen today
he had a brown BM yesterday
Objective Data
-
Labs:
Laboratory Results
01/14/25
06:01
WBC 2.9 L
Hgb 8.1 L
Hct 25.2 L
Plt Count 60 L
Sodium 141
Potassium 4.2
Chloride 110 H
Carbon Dioxide 28
BUN 18
Creatinine 0.8
Glucose 94
Calcium 8.2 L
Vital Signs:
Vital Signs
Temp Pulse Resp BP Pulse Ox
98.1 F 66 16 114/66 98
01/14/25 04:59 01/14/25 06:00 01/13/25 10:12 01/14/25 05:53 01/13/25 21:41
I&O
01/13/25 01/14/25 01/15/25
06:59 06:59 06:59
Intake Total 1310 / 1310 790 / 790
Output Total 1000 / 1000 1100 / 1100
Balance 310 / 310 -310 / -310
Review of Systems
-
History Source: Patient
All other systems: Reviewed and negative
Physical Exam
-
General: No Apparent Distress
HEENT: PERRLA
Respiratory: Clear to Auscultation
Cardiac: Regular Rhythm and S1/S2
GI: Soft and Nontender
Musculoskeletal: Edema, Right Lower Extrem and Edema, Left Lower Extrem
Skin: Warm and Dry; Negative Rash
Neuro: AO x 3
Psych: Calm
Data Reviewed
-
Diagnostic Radiology: Report Reviewed by me
Labs: Labs Reviewed by me
[2025-01-14 08:21] LABS: Glucose - Point of Care 176 mg/dl (70-99)
[2025-01-14] MEDS: NON-FORMULARY ITEM 1 TABLET PO ×2 (08:54→19:38)
[2025-01-14] MEDS: LINZESS 72 MCG PO (08:55)
[2025-01-14] MEDS: PROTONIX IV 40 MG IV ×2 (08:56→19:39)
[2025-01-14] MEDS: NSS (PRESERVATIVE FREE) 10 ML IV ×2 (08:56→19:39)
[2025-01-14] MEDS: OXYCONTIN (CONTROLLED RELEASE) 20 MG PO ×2 (08:57→19:38)
--- NOTE | 2025-01-14 10:22 | PTCARENOTE ---
Pt received from mold shifter RN. Pt is Ox3, wants things to be done on his terms. Hoarse/whispered voice quality, can be difficult to understand. Refusing insulin. NSR on tele, +3 LE edema. On RA with 97% sat. Pt having to difficulty with bowels or
bladder, using the bathroom appropriately. He states his last BM was yesterday. Pt walks himself through the halls with a RW without difficulty. Call correa within reach. Pt makes needs known.
--- NOTE | 2025-01-14 10:39 | W.PN.ONC2 ---
Today's Communication / Plan
-
daily CBC
monitor for bleeding
Impression
Impression
cough, fever, bronchiolitis
anemia suspect LION/AOCD s/p 3U PRBC during hospitalization, last 01/13 -Hgb 8.6
Cirrhosis w/ varices
borderline iron stores (ferritin < 100)
cirrhosis
chronic pancytopenia, secondary to cirrhosis and GI blood loss
h/o laryngeal cancer, 2019, treated w/ chemo/RT
Plan
Plan
antibiotics for pulmonary infection; afebrile since admission
transfuse Hgb <7 or as needed for sxs anemia
agree with parenteral iron
Would ask GI to see him, concern for recurrent variceal bleeding
GREG from a cancer standpoint (was laryngeal cancer, not esophgeal, per patient and path in [facility])
Monitor CBC; cytopenias are chronic
Subjective/Objective
Subjective
using oxy IR prn pain
using bowel regimen
afebrile, room air
ambulating with walker
Vital Signs:
Vital Signs
Temp Pulse Resp BP Pulse Ox
97.9 F 66 16 114/66 98
01/14/25 07:30 01/14/25 06:00 01/13/25 10:12 01/14/25 05:53 01/13/25 21:41
Lab Results:
Laboratory Data
WBC 2.9 10^3/uL (4.8-10.8) L 01/14/25 06:01
Hgb 8.1 g/dL (13.0-18.0) L 01/14/25 06:01
Plt Count 60 10^3/uL (130-400) L 01/14/25 06:01
eGFR > 60.00 01/14/25 06:01
Physical Exam
HEENT: Moist Mucous Membranes; No Jaundice
Cardiology: Normal Sinus Rhythm
GI: Soft
Extremities: Pulses Present
[2025-01-14] MEDS: SENOKOT 17.2 MG PO (11:09)
[2025-01-14] MEDS: VIBRAMYCIN 100 MG PO ×2 (11:09→19:38)
[2025-01-14] MEDS: FOLVITE 1 MG PO (11:09)
[2025-01-14] MEDS: MUCINEX 600 MG PO ×2 (11:09→19:39)
[2025-01-14] MEDS: LASIX 20 MG IV ×2 (11:14→16:51)
--- NOTE | 2025-01-14 11:26 | VNURNOTE ---
Home Health Liaison met with patient at bedside to discuss [facility] nurse/therapy, visits, schedule and homebound status. Patient is agreeable and understands that visits at home will be 2-3 x per week to assess and teach medical management. Patient
is aware that [facility] will contact them for start of care in 1-2 days after discharge from . Explained homebound criteria at length. Pt requested I speak w/his sig other Charisse. Called Charisse. She does not live w/him rate manager, she lives part
of the time in [place]. She inquired about finding a new PCP for Teddy. Provided her with PM website.
[facility] referral accepted in [facility].
[2025-01-14 11:49] LABS: Glucose - Point of Care 202 mg/dl (70-99)
[2025-01-14] MEDS: FERRLECIT 110 MG IV (13:12)
[2025-01-14] MEDS: ROCEPHIN 1000 MG IV (13:15)
[2025-01-14] MEDS: STERILE WATER FOR INJECTION 10 ML IV (13:15)
--- NOTE | 2025-01-14 13:26 | PN.CDI ---
CDI
- -
CDI:
Physician Documentation Request
Admit Date: 01/12/25 03:57
Dear Doctor Fab,
01/11 patient presented to ED with abrupt onset of central chest pain radiating to mid back. Noted to have mild cough and chest congestion.
01/11 t max 102.2 WBC 4.4 heart rates documented 80-96 respiratory rates 16-23
01/14 hospitalist progress note state 'Sepsis 2/2 Bronchiolitis'
Please clarify the following:
sepsis was present on admission
sepsis was not present on admission
Unable to determine
Use of terms such as suspected, likely, concern for, or probable (associated with a specific diagnosis that is being evaluated, monitored, or treated as if it exists) are acceptable and can be coded in the inpatient setting, when documented at the
time of discharge.
Thank you,
Deonna Bolden RN, BSN
CDI Specialist
tiger text
Please use your independent medical judgment in providing your response.
--- NOTE | 2025-01-14 13:30 | PN.CDI ---
CDI
- -
CDI:
Physician Documentation Request
Admit Date: 01/12/25 03:57
Dear Doctor Fab,
Patient admitted with bronchiolitis
Please clarify which of the following accurately represents the acuity of the bronchiolitis
____ Acute
Chronic
____ Other
Use of terms such as suspected, likely, concern for, or probable (associated with a specific diagnosis that is being evaluated, monitored, or treated as if it exists) are acceptable and can be coded in the inpatient setting, when documented at the
time of discharge.
Thank you,
Deonna Bolden RN, BSN
CDI Specialist
tiger text
Please use your independent medical judgment in providing your response.
[2025-01-14 14:23] LABS: Glucose - Point of Care 136 mg/dl (70-99)
[2025-01-14 17:59] LABS: Glucose - Point of Care 152 mg/dl (70-99)
[2025-01-14 21:42] LABS: Glucose - Point of Care 131 mg/dl (70-99)
--- NOTE | 2025-01-15 04:05 | PTCARENOTE ---
Pt noncompliant with BP monitoring throughout the night. Education provided. Continues without complaints at this time. Call correa within reach. Care ongoing.
[2025-01-15 04:11] VITALS: BP 106/47
[2025-01-15 05:08] VITALS: BMI 27.8
[2025-01-15 06:09] VITALS: BP 90/55
[2025-01-15 06:27] LABS: Hematocrit 25.6 % (39.0-52.0); Hemoglobin 8.3 g/dL (13.0-18.0); Mean Corp Hgb Conc. 32.4 g/dL (33.0-37.0); Mean Corpuscular Volume 95.5 fL (80.0-94.0); Platelet Count 57 10^3/uL (130-400); Red Cell Dist. Width 15.3 % (11.5-14.5)
[2025-01-15 07:07] LABS: Blood Urea Nitrogen 19 mg/dl (9-20); Calcium 8.4 mg/dl (8.4-10.2); Carbon Dioxide 28 mmol/L (22-30); Chloride 107 mmol/L (98-107); Estimated Creatinine Clearance 81 ml/min; Glucose 128 mg/dl (70-99); Potassium 4.2 mmol/L (3.5-5.1); Sodium 140 mmol/L (135-145); eGFR > 60.00
--- NOTE | 2025-01-15 08:19 | W.PN.HOSP.TC ---
Today's Communication/Plan
-
Lower extremity ritchie wraps with compression therapy
Convert meds to oral
Zofran as needed
Possible discharge later today
Assessment / Plan
Assessment / Plan
Gen-AAOx3, NAD
HEENT-NC, AT, anicteric, clear oral mm
Neck-supple
CV-reg, no M, +S1/S2
Lungs-clear B/L
Abd-soft, NT, ND
Ext-no edema
Musculoskeletal-no cyanosis, clubbing
Skin-warm and dry
Neuro-grossly non-focal
Psych-calm, cooperative
Acute hypoxic respiratory insufficiency -due to acute Bronchiolitis. Oxygenation improved on room air.
Sepsis 2/2 Bronchiolitis
-Chest CT negative for PE, negative for pneumonia, shows bronchiolitis
-Negative for COVID, negative for flu, negative for Legionella and strep antigens, RSV negative
-Day 4 of antibiotics, currently on ceftriaxone, doxycycline.
-he is now off of oxygen
-continue Mucinex and Acapella
Hypotension without shock -suspect hypotension related to liver disease. Doubt septic shock.
- Has not required Levophed, lactic acid 1.4
- IVF off, midodrine PRN - patient hasn't required in 24 hours
Acute on chronic anemia
- H/O LION & variceal bleed s/p banding. He had multiple recent admissions at [facility] for UGIB (awaiting records)
- Hg did not respond appropriately to first 2 transfusions, had also received IVF - wonder if lab variability and fluid administration cause. Hg responded appropriately to 3rd transfusion and is relatively stable this morning
- iron studies unreliable as they were done after transfusion.
- Continue twice daily Protonix
- appreciate Heme consult. Dr. Sanon curcaydenided with Dr. Saez, GI. They reviewed Hg trend and the fact that patient has no evidence of active GI bleed (he had a normal brown BM on 01/13). Therefore no need for inpatient GI consult. Patient has a
follow up with a liver specialist at [facility] in February.
Chronic pancytopenia -possibly due to cirrhosis.
Lower extremity Swelling -due to Lymphedema. Component of chronic lower extremity venous stasis dermatitis. Compression therapy ordered with Ritchie wraps bilaterally. Informed patient to continue to use them at home, may remove at nighttime.
-per , swelling has increased significantly over past few months in relation to hospitalizations, concern that volume overload contributing
-patient and report he had a normal echo at [facility]
- Change Lasix to 40 mg p.o. daily.
Cirrhosis w/ varices
- Coreg was held with low BP in setting of sepsis
- No encephalopathy at this time and no ascites
- plan for follow up with liver specialist in February at [facility]
DM2 with hyperglycemia -glucose 128 this morning.
- At home he is on Trijardy XR 1 tab twice daily, this consists of empagliflozin. linagliptin. and metformin. Resume on discharge.
- Patient refusing sliding scale insulin
History of laryngeal cancer -status postsurgery and chemo
- Has chronic hoarse voice
DVT PPX - SCDs due to anemia
Full code
Dispo -possible discharge later today if nausea improves. Close outpatient follow-up. Patient eager to go home, refusing IV meds in the hospital.
Anticipated Discharge: Today
Subjective/Interval History
-
Date of Service: January 15, 2025
Patient seen and examined. Complaining of nausea.
Objective Data
-
Labs:
Laboratory Results
01/15/25
06:07
WBC 3.0 L
Hgb 8.3 L
Hct 25.6 L
Plt Count 57 L
Sodium 140
Potassium 4.2
Chloride 107
Carbon Dioxide 28
BUN 19
Creatinine 0.8
Glucose 128 H
Calcium 8.4
Vital Signs:
Vital Signs
Temp Pulse Resp BP Pulse Ox
98.2 F 70 16 90/55 97
01/15/25 07:33 01/15/25 06:09 01/13/25 10:12 01/15/25 06:09 01/14/25 21:52
I&O
01/14/25 01/15/25 01/16/25
06:59 06:59 06:59
Intake Total 790 / 790 1010 / 1010
Output Total 1100 / 1100 2950 / 2950
Balance -310 / -310 -1940 / -1940
Review of Systems
-
History Source: Patient
All other systems: Reviewed and negative
[2025-01-15 09:17] VITALS: BP 112/52
[2025-01-15] MEDS: FOLVITE PO (09:23)
[2025-01-15] MEDS: MUCINEX PO (09:23)
[2025-01-15] MEDS: LINZESS PO (09:23)
[2025-01-15] MEDS: SENOKOT PO (09:23)
[2025-01-15] MEDS: OXYCONTIN (CONTROLLED RELEASE) PO (09:23)
[2025-01-15] MEDS: NON-FORMULARY ITEM 1 TABLET PO (09:26)
[2025-01-15] MEDS: PROTONIX 40 MG PO (09:27)
[2025-01-15] MEDS: VIBRAMYCIN 100 MG PO (09:27)
--- NOTE | 2025-01-15 09:42 | PTCARENOTE ---
Pt is unfriendly, short, accusatory, and hostile to nursing staff this morning. He is refusing almost all of his morning medications, including po lasix. RN verbally educated pt on purpose of medications, but patient continued to decline. Pt does
not want his vital signs taken every 2 hours per IMU standards and told nurse, 'I will be going home in less than 2 hours'.
Pt originally wanted po zofran, not IV. RN reached out to hospitalist for order. When new order was obtained, pt no longer wanted po zofran.
[2025-01-15 09:43] LABS: Glucose - Point of Care 129 mg/dl (70-99)
--- NOTE | 2025-01-15 11:34 | W.DS.TRANS ---
DC Summary - [employer]izer
-
Discharge Instructions:
Discharge Diagnosis/Procedures Bronchiolitis, lymphedema, pancytopenia, acute
on chronic anemia
Diet Diabetic, Carb Controlled,Restrict fluids to 48
oz
Activity As tolerated
Driving Restrictions As prior to admission
Bathing Restrictions None
Blood Work CBC, BMP next week with your primary care doctor
Instructions:
Stand-Alone Forms:
Changes to Home Medications: No
Discharge Medications:
DC Medications w/original date entered in [facility]
Pravastatin Sodium 20 mg PO HS High Cholesterol 01/29/20
linaclotide 72 mcg capsule (Linzess) 72 mcg PO DAILY Gastrointestinal Issue 01/29/20
oxycodone 15 mg tablet 15 mg PO QID Pain 01/29/20
oxycodone 15 mg tablet,crush resistant,extended release 12 hr (OxyContin) 20 mg PO Q12 Pain 01/29/20
albuterol sulfate 90 mcg/actuation aerosol inhaler (ProAir HFA) 2 puff inhalation Q4HPRN PRN shortness of breath #8.5 grams 12/10/22
carvedilol 3.125 mg tablet 3.125 mg PO BID Blood Pressure 01/12/25
cyanocobalamin (vitamin B-12) 1,000 mcg tablet 1,000 mcg PO DAILY Supplement 01/12/25
empagliflozin 12.5 mg-linaglipt 2.5 mg-metform ER 1,000 mg tablet,24hr (Trijardy XR) 1 tab PO BID Diabetes 01/12/25
ergocalciferol (vitamin D2) 1,250 mcg (50,000 unit) capsule (Vitamin D2) 1,250 mcg PO QWEEK Supplement 01/12/25
folic acid 1 mg tablet 1 mg PO DAILY Supplement 01/12/25
ondansetron 4 mg disintegrating tablet 4 mg PO Q8H PRN nausea 01/12/25
ondansetron 8 mg disintegrating tablet 8 mg PO Q8H PRN nausea 01/12/25
pantoprazole 40 mg tablet,delayed release 40 mg PO BID Gastrointestinal Issue 01/12/25
sennosides 8.6 mg tablet (senna) 17.2 mg PO DAILY Constipation 01/12/25
cefpodoxime 200 mg tablet 200 mg PO BID #6 tabs 01/15/25
doxycycline hyclate 100 mg capsule 100 mg PO BID #7 caps 01/15/25
furosemide 40 mg tablet 40 mg PO DAILY #30 tabs 01/15/25
guaifenesin 600 mg tablet, extended release 12 hr 600 mg PO Q12 #0 tabs 01/15/25
polyethylene glycol 3350 17 gram oral powder packet 17 g PO DAILY #0 ea 01/15/25
Home Medication Changes
Pending Results: No
--- NOTE | 2025-01-15 12:16 | CM ---
Patient with Dx Sepsis 2/2 Bronchiolitis. Room air. PT 01/12 recommends HH, 01/14; independent, Therapy not warranted.
Met with patient who was preparing for d/c. The patient says he feels ready go go home today. IMM completed.
He is aware that [facility] is setup for him.
His will provide transport home.
Plan home today with [facility].
[2025-01-15] MEDS: ROCEPHIN IV (12:58)
[2025-01-15] MEDS: STERILE WATER FOR INJECTION IV (12:58)
--- NOTE | 2025-01-15 13:18 | VNURNOTE ---
Spoke to sig danyell Mcqueen on the phone, answered questions regarding when [facility] will be out and that pt will be eval 'ed by home PT, OT. Provided [facility] main office contact number. Referral accepted in [facility]. pt heard conversation and in
agreement.
--- NOTE | 2025-01-15 13:29 | PTCARENOTE ---
Patient refused afternoon medications, discharge vital signs, poc glucose check, and application of mayank bandages. RN sent pt home with 2 mayank bandages and educated on application need and instructions. Pt wanted to leave hospital as soon as
possible. RN also had CM call patient and pt in room to clarify home pt referral
== END 2025-01-15 13:45 | disposition home health service (06) | DRG 872 ==
LOC: IMU 03:57
PROVIDERS: Family Medicine; Physician Assistant; Student in an Organized Health Care Education/Training Program; ADMITTING PHYSICIAN Internal Medicine; ATTENDING PHYSICIAN Hospitalist; EMERGENCY PHYSICIAN Emergency Medicine; OTHER PHYSICIAN Internal Medicine Hematology & Oncology
PROC: 30233N1 Transfusion of Nonautologous Red Blood Cells into Peripheral Vein, Percutaneous Approach (ICD-10-PCS; 2025-01-12)
DX: A41.9 Sepsis, unspecified organism (principal); J21.9 Acute bronchiolitis, unspecified; D61.818 Other pancytopenia; I89.0 Lymphedema, not elsewhere classified; K74.60 Unspecified cirrhosis of liver; R09.02 Hypoxemia; I95.9 Hypotension, unspecified; Z85.01 Personal history of malignant neoplasm of esophagus; Z87.891 Personal history of nicotine dependence; Z88.0 Allergy status to penicillin; E11.9 Type 2 diabetes mellitus without complications; D63.8 Anemia in other chronic diseases classified elsewhere; E78.00 Pure hypercholesterolemia, unspecified; G89.29 Other chronic pain; I10 Essential (primary) hypertension; I25.10 Atherosclerotic heart disease of native coronary artery without angina pectoris; K21.9 Gastro-esophageal reflux disease without esophagitis; K76.0 Fatty (change of) liver, not elsewhere classified; Z79.84 Long term (current) use of oral hypoglycemic drugs; Z79.899 Other long term (current) drug therapy; Z85.21 Personal history of malignant neoplasm of larynx; Z85.818 Personal history of malignant neoplasm of other sites of lip, oral cavity, and pharynx; Z95.5 Presence of coronary angioplasty implant and graft
CPT/HCPCS: 36430; 71046; 71275; 80048; 80053; 81003; 82140; 82607; 82728; 82746; 82962; 83010; 83540; 83550; 83605; 83615; 83735; 83921; 84484; 85014; 85018; 85025; 85027; 86850; 86880; 86900; 86901; 86920; 87040; 87070; 87449; 87502; 87807; 87811; 87899; 93005; 96361; 96365; 96375; 97162; 99285; J2916; P9016; Q9967

== ENCOUNTER 2025-02-12 20:45 | Inpatient (IN) | payer MEDICARE, OTHER, SELFPAY ==
[2025-02-12] VITALS (12 sets, daily range): BP systolic 87–128; BP diastolic 43–97
--- NOTE | 2025-02-12 17:56 | ED.GENMED ---
History of Present Illness
General
Chief Complaint: Rectal Bleeding
Source: patient
Exam Limitations: none
Time Seen by Provider: 02/12/25 17:56
Nursing documentation reviewed up to this point in time: agreed with
History of Present Illness
History of Present Illness:
69-year-old male with history of CAD, HTN, HLD, cirrhosis of the liver, diverticulitis, GERD, esophageal varices, IDDM, anemia, cardiac stents, presents with black stools for the past three to four days. The patient describes a change from brown
to black stools. The patient also reports lightheadedness, dizziness, and shortness of breath upon exertion. The patient has experienced some mild abdominal pain.
The patient mentions previous esophageal variceal banding performed at [facility] about 45 days ago, with another banding procedure around two weeks later due to a rebleed at the same location. The patients hemoglobin previously dropped
to 6.4 during this event. 9 days ago and had repeat labs which showed a hemoglobin level of 7.4, He had two units PRBCs as outpatient. He had repeat labs done yesterday showing Hgb 8.0; he called his doctor and was told the Hgb should be higher
after 2 units of blood and he must be bleeding internally somewhere, prompting this emergency visit.
The patient has been referred to a liver specialist, but the earliest available appointment is not until March 11.
The patient reports a significant episode of severe stomach pain on Monday evening (5 nights ago), but it resolved only after several hours without intervention. None since.
Past History
Past History
ED Past Medical History: CAD, GERD, HTN, Hypercholesterolemia, NIDDM and Other (Chronic back pain, chronic neck pain)
ED Past Surgical History: Cardiac (Stents) and Tonsilectomy
Social History
Tobacco: Former smoker
Alcohol: None
Drug: None
Review of Systems
Review of Systems
Allergies reviewed?: Yes
All Other Systems: ROS reviewed and negative except as documented in HPI and ROS
Constitutional: Reports fatigue
Respiratory: Denies trouble breathing (SOB with exertion)
Cardiac: Denies chest pain
ABD/GI: Reports black stools; Denies abdominal pain, nausea, vomiting or diarrhea
Musculoskeletal: Reports no symptoms
Skin: Reports no symptoms
Phy Exam
Physical Exam
Physical Exam:
GENERAL: No acute distress. A&Ox3.
CONSTITUTIONAL: Afebrile.
EYES: clear, conjunctivae normal
ENMT: moist mucus membranes, Pharynx nl
RESPIRATORY: Regular respirations, nonlabored, lungs clear.
CARDIOVASCULAR: Regular rate and rhythm, no murmurs, no rubs.
GI: Soft, nontender, normal BS
Rectal: Dark black stool heme positive
MUSCULOSKELETAL: Moves with ease. Well perfused.
SKIN: Warm, dry, pale. Access port right upper chest wall.
PSYCH: Normal mood and affect. Well kept, interactive and appropriate
NEUROLOGIC: Awake, alert and oriented. No focal neurological deficits
Course
Orders/Labs/Results
Orders:
Orders
02/12/25 Dinner
NPO
Allow oral meds: Yes
Allow clear liquids: Sips of Clears
02/12/25 18:42
Type And Crossmatch [Type+Screen] Urgent
Complete Blood Count/With Diff Urgent
Comprehensive Metabolic Panel Urgent
PTT Urgent
Prothrombin Time Urgent
02/12/25 18:54
Pantoprazole [Protonix IV] 80 mg IV NOW STA
02/12/25 18:55
IV Insert/Care/Rem.- Treatment PRN
02/12/25 18:57
Octreotide [Sandostatin] 50 mcg IV NOW STA
Pantoprazole 80 mg/100 ml Nss [Protonix] 80 mg in 100 ml IV NOW
02/12/25 19:15
Heparin Pf [Heparin Lock Flush] 500 unit IV PER PROTOCOL
02/12/25 19:23
0.9% Sodium Chloride 1000 ml [Nss] 1,000 ml IV BOLUS
02/12/25 19:30
Octreotide Acetate [Sandostatin] 500 mcg 0.9% Sodium Chloride 250 ml [Nss] 249 ml IV NOW
02/12/25 20:16
Admit/Transfer Patient As Directed
Co-Sign Provider:
Level of Care: Inpatient admission
Assign to:: IMU- Intermediate Care
Physician / Group: Gabi
Diagnosis: GI bleed
Reason for Hospitalization: GI bleed
Expected length of stay greater than two midnights?: Yes
ELOS- Estimated Length of Stay in days: 2
I certify the patient meets the requirements for IP care: Yes
02/12/25 20:17
PRN Pain Medication Management As Directed
May give lesser potent ordered pain med per pt: Yes
preference::
Protocol:: Medication orders for pain may be administered in a
manner that supports deferring to patient preference
when the pt is:
- Requesting an ordered lesser potent pain medication.
Least to most potent pain medications are defined
as: acetaminophen < NSAID < tramadol < opioids
(morphine, oxycodone, hydromorphone).
- Requesting a lesser dose of the same medication IF
ORDERED.
- Requesting a less intrusive route of administration
if both routes are prescribed by the provider (PO <
IV).
02/12/25 20:18
Code Status As Directed
Resuscitation Status: Full Code
02/12/25 22:00
CefTRIAXone [Rocephin] 1,000 mg IV Q24H
02/12/25 22:10
0.9% Sodium Chloride 1000 ml [Nss] 1,000 ml IV 75 mls/hr
Ondansetron Injectable [Zofran] 4 mg IV Q6HPRN PRN
02/12/25 22:10
GASTROINTESTINAL CONSULT Routine
Consulting Provider: Yesica Saez
Was physician already notified: Yes
Activity As Directed
Activity Level: With Assistance
Bedside Glucose Monitoring As Directed
Frequency: Q6H
INT (Intravenous Needle Therapy) As Directed
Comment: Place 2 IV catheters of the largest bore possible until stable
Orthostatic Vital Signs As Directed
Orthostatic VS Frequency: Now
Comment: then every four hours for twenty-four hours
Pneumatic Compression Sleeves As Directed
Type: Knee high
Vital Signs As Directed
Frequency: Per unit guidelines
DX Deep Vein Thrombosis Video Routine
02/13/25 00:00
Insulin Aspart Corrective Low [Novolog Flexpen-Low Resistance] See Protocol SC Q6
02/13/25 00:20
H&H Q6H
02/13/25 04:57
Pantoprazole 80 mg/100 ml Nss [Protonix] 80 mg in 100 ml IV Q10H
02/13/25 06:00
Basic Metabolic Panel IN AM
Ferritin IN AM
Iron IN AM
Prothrombin Time IN AM
Total Iron Binding IN AM
02/13/25 06:20
H&H Q6H
02/13/25 08:00
Oxycodone Controlled Release [Oxycontin (Controlled Release)] 20 mg PO Q12
02/13/25 12:20
H&H Q6H
02/13/25 18:20
H&H Q6H
Abnormal Lab Results
02/12/25
18:42
WBC 3.0 L 10^3/uL
(4.8-10.8)
RBC 2.50 L 10^6/uL
(4.70-6.10)
Hgb 7.5 L g/dL
(13.0-18.0)
Hct 23.2 L %
(39.0-52.0)
MCHC 32.3 L g/dL
(33.0-37.0)
RDW 15.7 H %
(11.5-14.5)
Plt Count 58 L 10^3/uL
(130-400)
Absolute Lymphs (auto) 0.4 L 10^3/uL
(1.2-3.4)
Lymphocytes % 14.0 L %
(20.5-51.1)
Monocytes % 10.3 H %
(1.7-9.3)
APTT 37.6 H Sec
(23.4-35.0)
BUN 23 H mg/dl
(9-20)
Glucose 146 H mg/dl
(70-99)
Calcium 8.3 L mg/dl
(8.4-10.2)
Albumin 3.4 L g/dl
(3.5-5.0)
02/12/25 18:42
02/12/25 18:42
Vital Signs
Initial and Last Documented VS:
Initial Vital Signs
Temp Pulse Resp BP Pulse Ox
98.5 F 78 18 87/59 96
02/12/25 17:51 02/12/25 17:51 02/12/25 17:51 02/12/25 17:51 02/12/25 17:51
Last Documented Vital Signs
Temp Pulse Resp BP Pulse Ox
98.6 F 68 11 95/54 91
02/12/25 22:20 02/12/25 23:30 02/12/25 23:30 02/12/25 23:00 02/12/25 23:00
MDM/Problems Addressed
Differential Diagnosis Includes:
GI bleed due to esophageal varices, PUD, gastritis, Tanya-Johnston tear, Colitis
MDM/Problems Addressed:
69-year-old male with history of CAD, HTN, HLD, cirrhosis of the liver, diverticulitis, GERD, esophageal varices, IDDM, anemia, cardiac stents, presents with black stools for the past three to four days. The patient describes a change from brown to
black stools. The patient also reports lightheadedness, dizziness, and shortness of breath upon exertion. The patient has experienced some mild abdominal pain.
The patient mentions previous esophageal variceal banding performed at [facility] about 45 days ago, with another banding procedure around two weeks later due to a rebleed at the same location. The patients hemoglobin previously dropped
to 6.4 during this event. 9 days ago and had repeat labs which showed a hemoglobin level of 7.4, He had two units PRBCs as outpatient. He had repeat labs done yesterday showing Hgb 8.0; he called his doctor and was told the Hgb should be higher
after 2 units of blood and he must be bleeding internally somewhere, prompting this emergency visit.
The patient has been referred to a liver specialist, but the earliest available appointment is not until March 11.
The patient reports a significant episode of severe stomach pain on Monday evening (5 nights ago), but it resolved only after several hours without intervention. None since.
Afebrile, NAD
7:50 PM:
CBC: Hemoglobin 7.5
CMP: no clinically significant abnormality
Hospitalist notified of admission.
Dx: GI bleed, hx esophageal varices
*Pulse Oximetry
SaO2: 96
Oxygen Mode of Delivery: Room air
Patient hypoxic: no
*Critical Care Note
Total Time (30-74mins, 75-104mins- exclusive of procedures): Not Applicable
ED Attending Note
-
Portions of this chart may have been created with voice recognition software.� Occasional wrong word or��sound alike� substitutions may have occurred due to the inherent limitations of voice recognition software.
Discharge Plan
Departure
Patient Disposition: Admit
Date of Disposition: 02/12/25
Time of Disposition: 19:51
Admit to: IMU
Presentation/result/management discussed w/ accepting MD/DO: Hospitalist
Condition: Fair
Discharge Problem:
GI (gastrointestinal bleed)
Interventions
Interventions:
*Risk Screen - Suicide Last Done: 02/12/25 17:51
*General Assessment Last Done: 02/12/25 17:51
*Nursing Disposition Last Done: 02/12/25 23:40
NR-Cjjlwv-Mhtxhlqlme Assessment Last Done: 02/12/25 18:59
ED- Cardiac Assessment Last Done: 02/12/25 18:59
ED- Pulmonary Assessment Last Done: 02/12/25 18:59
Discharge Date and Time
Discharge Date/Time: 02/12/25 23:41
[2025-02-12 19:05] LABS: INR 1.06; PT 14.3 Sec (11.4-14.6)
[2025-02-12 19:06] LABS: APTT 37.6 Sec (23.4-35.0)
[2025-02-12 19:14] LABS: Hematocrit 23.2 % (39.0-52.0); Hemoglobin 7.5 g/dL (13.0-18.0); Mean Corp Hgb Conc. 32.3 g/dL (33.0-37.0); Mean Corpuscular Volume 92.8 fL (80.0-94.0); Nucleated Red Blood Cells % 0 % (-); Platelet Count 58 10^3/uL (130-400); Red Cell Dist. Width 15.7 % (11.5-14.5)
[2025-02-12] MEDS: PROTONIX IV 80 MG IV (19:17)
[2025-02-12] MEDS: PROTONIX 100 IV (19:20)
[2025-02-12] MEDS: NSS 1000 IV ×2 (19:23→22:39)
[2025-02-12 19:39] LABS: ALT (SGPT) 14 U/L (0-50); AST (SGOT) 20 U/L (17-59); Albumin 3.4 g/dl (3.5-5.0); Alkaline Phosphatase 97 U/L (38-126); Blood Urea Nitrogen 23 mg/dl (9-20); Calcium 8.3 mg/dl (8.4-10.2); Carbon Dioxide 28 mmol/L (22-30); Chloride 104 mmol/L (98-107); Glucose 146 mg/dl (70-99); Potassium 4.5 mmol/L (3.5-5.1); Sodium 136 mmol/L (135-145); Total Protein 6.4 g/dl (6.3-8.2); eGFR > 60.00
--- NOTE | 2025-02-12 19:55 | HPS.HSE ---
Family Physician
-
Family Physician: Betty Rowe MD
Chief Complaint
-
Rectal bleeding
History of Present Illness
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
stools.
Patient diagnosed with hepatitis C several years ago and never followed or treated. Later developed cirrhosis complicated by esophageal varices with bleeding status post banding. No EtOH use. He had a multiple banding's this year with the last
episode around November at [facility]. Patient reported that since then he has had low hemoglobin with hemoglobin of around 7.4 on January 29 status post transfusion with 2 units. He had a repeat hemoglobin yesterday which was at 8.0. In the last 4
days the patient and she reported persistent dark but well-formed stool. He denies any diarrhea. He reports some vague abdominal discomfort with mild nausea but no vomiting. There is no hematemesis. He also has a chronic back pain for which he
is on chronic opioids with recurrent constipation. He denies feeling dizzy or lightheaded so far. He denies any history of ascites, abdominal pain fevers. He reports feeling cold or chills. He has chronic lower extremities edema which is
unchanged. Spouse report that he has been weaker and a little bit more intermittently confused.
In the emergency department blood pressure was 89/43 with a pulse rate of 70 and was satting at 7% on room air.
CBC shows a hemoglobin of 7.5 down from 8.3 at baseline with a platelet count of 58 which is at baseline. Electrolytes are normal. BUN/creatinine were normal. Glucose was normal.
Medical History
Past Medical History
Past Medical History: Reports Other
Additional Past Medical History:
Esophageal cancer status post surgery and chemo
Cirrhosis (unknown thought to be hep C)
Varices status post total bleeding status post banding
Hyperlipidemia
Past Surgical History: Reports Other
Social History
Tobacco: Former Smoker
Alcohol: None
Drug: None
Personal:
Living: With Family
Family History
Family History: Not pertinent
Allergies / Home Medications
Allergies reflects when Allergies were last updated in [facility].
Home Medications with original date entered in [facility]
Allergy/Medication List:
Allergies
Allergy/AdvReac Type Severity Reaction Status Date / Time
Penicillins Allergy Unknown Verified 01/11/25 19:45
Home Medications
Pravastatin Sodium 20 mg PO HS 01/29/20
linaclotide 72 mcg capsule (Linzess) 72 mcg PO DAILY 01/29/20
oxycodone 15 mg tablet 15 mg PO QID 01/29/20
oxycodone 15 mg tablet,crush resistant,extended release 12 hr (OxyContin) 15 mg PO Q12 01/29/20
albuterol sulfate 90 mcg/actuation aerosol inhaler (ProAir HFA) 2 puff inhalation Q4HPRN PRN shortness of breath #8.5 grams 12/10/22
carvedilol 3.125 mg tablet 3.125 mg PO BID 01/12/25
cyanocobalamin (vitamin B-12) 1,000 mcg tablet 1,000 mcg PO DAILY 01/12/25
empagliflozin 12.5 mg-linaglipt 2.5 mg-metform ER 1,000 mg tablet,24hr (Trijardy XR) 1 tab PO BID 01/12/25
ergocalciferol (vitamin D2) 1,250 mcg (50,000 unit) capsule (Vitamin D2) 1,250 mcg PO QWEEK 01/12/25
folic acid 1 mg tablet 1 mg PO DAILY 01/12/25
ondansetron 4 mg disintegrating tablet 4 mg PO Q8H PRN nausea 01/12/25
ondansetron 8 mg disintegrating tablet 8 mg PO Q8H PRN nausea 01/12/25
pantoprazole 40 mg tablet,delayed release 40 mg PO BID 01/12/25
sennosides 8.6 mg tablet (senna) 17.2 mg PO DAILY 01/12/25
Review of Systems
-
History Source: Patient and Family
Constitutional: Reports No Symptoms
EENT: Reports No Symptoms
Respiratory: Reports No Symptoms
Cardiac: Reports No Symptoms
Abdomen/GI: Reports Black Stools
: Reports No Symptoms
Musculoskeletal: Reports No Symptoms
Skin: Reports No Symptoms
Neurological: Reports No Symptoms
Endocrine: Reports No Symptoms
Hematologic/Lymphatic: Reports No Symptoms
Psych: Reports No Symptoms
Physical Exam
Vital Signs
Vital Signs
Temp Pulse Resp BP Pulse Ox
98.5 F 70 13 89/43 97
02/12/25 17:51 02/12/25 19:45 02/12/25 19:45 02/12/25 19:30 02/12/25 19:45
Physical Exam
General: Well Developed, Well Nourished and No Apparent Distress
HEENT: NormoCephalic, Moist mucous membranes and Atraumatic
Respiratory: Clear
Cardiac: S1/S2 and Regular Rhythm; No Murmur or Rub
GI: Soft, Non Tender, Non Distended and Normal Bowel Sounds; No Organomegaly
Rectal: Hem Positive
Genito-urinary: Deferred by me
Musculoskeletal: No Clubbing, No Cyanosis and No Edema
Skin: No Rash
Neuro: AO x 3 and Nonfocal/grossly intact
Psych: Calm
Laboratory Results
-
02/12/25 18:42
02/12/25 18:42
Laboratory Results
PT 14.3 Sec (11.4-14.6) 02/12/25 18:42
INR 1.06 02/12/25 18:42
APTT 37.6 Sec (23.4-35.0) H 02/12/25 18:42
Total Bilirubin 0.7 mg/dl (0.2-1.3) 02/12/25 18:42
AST 20 U/L (17-59) 02/12/25 18:42
ALT 14 U/L (0-50) 02/12/25 18:42
Alkaline Phosphatase 97 U/L (38-126) 02/12/25 18:42
Data Reviewed
-
Lab Data: Labs Reviewed by me
Old Records: Reviewed
Impression/Plan
-
IMPRESSION:
PLAN:
1. Anemia - GI bleed likely secondary to variceal bleed vs gastritis/PUD. No thinners/NSAIDS. No evidence of other forms of acute decompensation. HD boderline.
- admit to IMU
- fluid bolus x 1
- type and screen,
- trend H&H q 6
- start ppi gtt, octreotide gtt
- npo
- antiemetics
- variceal bleed abx ppx w/ ceftriaxone
- ammonia levels in am (no encephalopathy or ascites)
- gi consultation
2. DM II
- npo
- holding metformin/empagliflozin
- sliding scale insulin
3. Chronic Pain
- on oxycodone 15 q6, with hold parameters for bp
- continue oxycontin bid
- prn dilaudid for severe pain
DVT PPX - SCDs for now
Code status - Full Code
[2025-02-12] MEDS: SANDOSTATIN 50 MCG IV (20:02)
[2025-02-12] MEDS: SANDOSTATIN 250 MCG IV (20:04)
[2025-02-12 21:12] LABS: Ammonia < 9 umol/L (9-30)
[2025-02-12] MEDS: ROXICODONE 15 MG PO (22:32)
[2025-02-12] MEDS: STERILE WATER FOR INJECTION 10 ML IV (22:32)
[2025-02-12] MEDS: ROCEPHIN 1000 MG IV (22:32)
[2025-02-13] VITALS (14 sets, daily range): BP systolic 10–134; BP diastolic 47–80; BMI 28.7
[2025-02-13 00:08] LABS: Glucose - Point of Care 99 mg/dl (70-99)
[2025-02-13 00:47] LABS: Hematocrit 23.1 % (39.0-52.0); Hemoglobin 7.4 g/dL (13.0-18.0)
--- NOTE | 2025-02-13 04:34 | PTCARENOTE ---
Received patient from the ED overnight. q6h h+h. Patient non compliant and demanding at times. No episodes of dark stools/bleeding. Will continue to monitor.
--- NOTE | 2025-02-13 04:41 | PTCARENOTE ---
Patient demanding for his mucinex to be ordered, his roxicodone 15 mg to be changed from QID to prn. He stated 'I will not wait long for these to be ordered or I will take my own.' Patient told he is unable to take his home meds unless prescribed by
provider. He stated 'I will not be a pleasant patient if I do not get these meds now.' TT placed to traffic personnel supervisor provider to get orders changed.
[2025-02-13] MEDS: PROTONIX 100 IV ×2 (05:10→17:10)
[2025-02-13 05:29] LABS: Glucose - Point of Care 140 mg/dl (70-99)
[2025-02-13 05:30] LABS: Hematocrit 24.6 % (39.0-52.0); Hemoglobin 7.9 g/dL (13.0-18.0)
[2025-02-13 05:42] LABS: INR 1.08; PT 14.5 Sec (11.4-14.6)
[2025-02-13] MEDS: ROXICODONE 15 MG PO (05:55)
[2025-02-13] MEDS: SANDOSTATIN 250 MCG IV ×2 (06:32→16:16)
[2025-02-13 06:34] LABS: Blood Urea Nitrogen 22 mg/dl (9-20); Calcium 8.0 mg/dl (8.4-10.2); Carbon Dioxide 28 mmol/L (22-30); Chloride 107 mmol/L (98-107); Estimated Creatinine Clearance 70 ml/min; Glucose 120 mg/dl (70-99); Iron 31 ug/dl (49-181); Potassium 4.9 mmol/L (3.5-5.1); Sodium 137 mmol/L (135-145); eGFR > 60.00
--- NOTE | 2025-02-13 06:34 | CON.GI ---
Addendum entered and electronically signed by LUI Ames 02/13/25 15:58:
reviewed with nursing staff will try to reorder US for AM
Addendum entered and electronically signed by LUI Ames 02/13/25 15:45:
Pt refused to proceed with US as requested
Original Note:
Consultation
-
Date/Time Consultation Requested: 02/12/252209
Date/Time Consultation Performed: 02/13/25629
Requesting Provider: yassine Ashley MD
Performing Provider: LUI Kimball, Yesica Saez MD
Reason for Consultation: anemia/dark stools
Medical History
Chief Complaint / HPI
History of Present Illness:
Pt is a 69yo with hx laryngeal CA with prior chemo radiation and biopsy with recent stable eval at [facility] , cirrhosis with hx ?hep C(? 30 years ago no treatment) vs MASH vs other (pt unsure about any prior liver work up), EV with recent banding,
GAVE with prior APC therapy, portal HTN, splenomegaly, prior diverticulitis, NIDDM, CAD with prior stenting and prior Plavix therap(off since September), HTN, hypercholesterolemia, anemia with iron deficiency, spondylosis of cervical spine with prior
follow at [place]. He has several admission to [place] in September and November with GI bleed with EGD noted EV with red whale in November with banding, concern for GAVE with APC therapy. He has been on Coreg along with Protonix therapy. He was
admitted to in December with hypoxemia and sepsis with resp bronchiolitis, anemia with hbg down to 6.7 with transfusion and hematology evaluation. He now returns with rectal bleeding with black stools over last week with no stools for 2 days but also
feeling of fatigue, dizziness that happens with recurrent anemia. On admission noted with hbg 7.5 and dark black heme + stool in ER. Pt is due in February to see Hepatology--Dr. Lamar. On admission hbg 7.5 with prior drop to 6.7 in December,WBC
3, platelets 58,000, INR 1.08, Na 137, k 4.9, bella 107, co2 28, BUN 22, creat 0.9, glucose 120, iron 31, TIBC 235, % sat 13, ferritin 68, bili 0.7, AST 20, ALT 14, alk phos 97, ammonia <9, albumin 3.4.
In review with patient he began with liver issues several months ago. He is noted with bleeding but also lower ext edema but denies ascites or HE though ? some confusion per family. 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
laryngeal Ca that does not persists throughout day but has been chronic symptoms. He admits to some nausea this am without vomiting. He also admits to constipation with narcotic use with Miralax use as needed He admits to chronic back pain on
chronic narcotics and last Monday abdominal pain that is now resolved. He otherwise denies odynophagia, GERD, or red blood in stools. Currently off anticoagulation and no NSAID needed. Will use tylenol as needed and on chronic Oxycodone.
EGD--10/12/24- [facility]- [place]-grade II EV eradicated/banded, multiple non bleeding angioectasia in stomach with APC, gastritis, normal duodenum
EGD--12/19/24- Dr Vinod Jackson, [place]- varix distal esophagus with red whale sign banded, GAVE with bleeding, s/p APC, normal duodenal bulb
colonoscopy about 8 years ago due for repeat
Past Medical History
Past Medical History: CAD (prior plavix therapy), Cancer (Laryngeal CA s/p surgery and chemo), HTN, Hypercholesterolemia, NIDDM and Other (hep C cirrhosis with varices and prior GI bleed and banding, GAVE with prior APC, portal HTN gastropathy,
splenomegaly, anemia with iron deficiency, spondylosis of cervical spine with chronic neck and back pain,, cholelithiasis,diverticulitis, umbilical hernia )
Past Surgical History: Cardiac (prior stenting ) and Other (larynx surgery )
Social History
Tobacco: Former Smoker (quit 2015)
Alcohol: None
Drug: Marijuana (20 years ago )
Personal:
Living: With Family
Employment: Employed ([employer] )
Family History
Family History: Other (no noted hx per chart)
Allergies / Home Medications
Allergy/AdvReac Type Severity Reaction Status Date / Time
Penicillins Allergy CHILDHOOD Verified 02/12/25 22:13
�Medication �Instructions �Recorded
oxycodone 15 mg tablet 15 mg PO QID Pain 01/29/20
oxycodone 15 mg tablet,crush 20 mg PO Q12 Pain 01/29/20
resistant,extended release 12 hr
(OxyContin)
pravastatin 20 mg tablet 20 mg PO DAILY High Cholesterol ##0 01/29/20
carvedilol 3.125 mg tablet 3.125 mg PO BID Blood Pressure 01/12/25
cyanocobalamin (vitamin B-12) 1,000 mcg PO DAILY Supplement 01/12/25
1,000 mcg tablet
empagliflozin 12.5 mg-linaglipt 1 tab PO BID Diabetes 01/12/25
2.5 mg-metform ER 1,000 mg
tablet,24hr (Trijardy XR)
ergocalciferol (vitamin D2) 1,250 1,250 mcg PO SA Supplement 01/12/25
mcg (50,000 unit) capsule (Vitamin
D2)
folic acid 1 mg tablet 1 mg PO DAILY Supplement 01/12/25
pantoprazole 40 mg tablet,delayed 40 mg PO BID Gastrointestinal Issue 01/12/25
release
sennosides 8.6 mg tablet (senna) 17.2 mg PO DAILY Constipation 01/12/25
polyethylene glycol 3350 17 gram 17 g PO DAILY #0 ea 01/15/25
oral powder packet
guaifenesin 600 mg tablet, 600 mg PO DAILY 02/12/25
extended release 12 hr
Review of Systems
-
History Source: Patient and Family
Constitutional: Reports Weight Loss, Chills and Other (decreased appetite )
EENT: Reports No Symptoms
Respiratory: Reports No Symptoms
Cardiac: Reports No Symptoms
Abdomen/GI: Reports Abdominal Pain (several days ago), Constipated and Black Stools
: Reports No Symptoms
Musculoskeletal: Reports Edema
Skin: Reports No Symptoms
Neurological: Reports Dizzy and Weakness
Hematologic/Lymphatic: Reports Bleeding
Vital Signs
Temp Pulse Resp BP Pulse Ox
98.2 F 60 10 101/50 95
02/13/25 03:10 02/13/25 06:00 02/13/25 06:00 02/13/25 06:00 02/13/25 04:00
Physical Exam
Exam
General: No Apparent Distress and Other (some pain in back )
HEENT: Normocephalic and Anicteric
Respiratory: Clear
Cardiac: Regular Rhythm
GI: Soft, Non Tender, Non Distended and Other (palp umbilical hernia minimal tenderness )
Rectal: Other (black heme + per ER)
Musculoskeletal: No Clubbing and No Cyanosis
Skin: Warm and Dry
Neuro: Awake, Alert and AO x 3
Psych: Calm
Results
WBC 3.0 10^3/uL (4.8-10.8) L 02/12/25 18:42
Hgb 7.9 g/dL (13.0-18.0) L 02/13/25 05:18
Hct 24.6 % (39.0-52.0) L 02/13/25 05:18
MCV 92.8 fL (80.0-94.0) 02/12/25 18:42
Plt Count 58 10^3/uL (130-400) L 02/12/25 18:42
Absolute Neuts (auto) 2.2 10^3/uL (1.4-6.5) 02/12/25 18:42
PT 14.5 Sec (11.4-14.6) 02/13/25 05:18
INR 1.08 02/13/25 05:18
APTT 37.6 Sec (23.4-35.0) H 02/12/25 18:42
Sodium 137 mmol/L (135-145) 02/13/25 05:18
Potassium 4.9 mmol/L (3.5-5.1) 02/13/25 05:18
Chloride 107 mmol/L (98-107) 02/13/25 05:18
Carbon Dioxide 28 mmol/L (22-30) 02/13/25 05:18
BUN 22 mg/dl (9-20) H 02/13/25 05:18
Creatinine 0.9 mg/dL (0.7-1.3) 02/13/25 05:18
Calcium 8.0 mg/dl (8.4-10.2) L 02/13/25 05:18
Total Bilirubin 0.7 mg/dl (0.2-1.3) 02/12/25 18:42
AST 20 U/L (17-59) 02/12/25 18:42
ALT 14 U/L (0-50) 02/12/25 18:42
Alkaline Phosphatase 97 U/L (38-126) 02/12/25 18:42
Diagnostic Image Results:
No abdominal imaging at [facility]
Prior GI Procedures:
EGD--10/12/24- [facility]- [place]-grade II EV eradicated/bandedd, multiple non bleeding angioectasia in stomach with APC, gastritis, normal duodenum
EGD--12/19/24- Dr Vinod Jackson, [place]- varix distal esophagus with red whale sign banded, GAVE with bleeding, s/p APC, normal duodenal bulb
Colonoscopy: 8 years ago -- due for follow up
Assessment / Plan
-
Pt is a 69yo with hx laryngeal CA with prior chemo radiation and biopsy with recent stable eval at [facility] , cirrhosis with hx ?hep C(? 30 years ago no treatment) vs MASH vs other (pt unsure about any prior liver work up), EV with recent banding,
GAVE with prior APC therapy, portal HTN, splenomegaly, prior diverticulitis, NIDDM, CAD with prior stenting and prior Plavix therap(off since September), HTN, hypercholesterolemia, anemia with iron deficiency, spondylosis of cervical spine with prior
follow at [facility]. He has several admission to [place] in September and November with GI bleed with EGD noted EV with red whale in November with banding, concern for GAVE with APC therapy. He has been on Coreg along with Protonix therapy. He was
admitted to in December with hypoxemia and sepsis with resp bronchiolitis, anemia with hbg down to 6.7 with transfusion and hematology evaluation. He now returns with rectal bleeding with black stools over last week with no stools for 2 days but also
feeling of fatigue, dizziness that happens with recurrent anemia. On admission noted with hbg 7.5 and dark black heme + stool in ER. Pt is due in February to see Hepatology--Dr. Lamar. On admission hbg 7.5 with prior drop to 6.7 in December,WBC
3, platelets 58,000, INR 1.08, Na 137, k 4.9, bella 107, co2 28, BUN 22, creat 0.9, glucose 120, iron 31, TIBC 235, % sat 13, ferritin 68, bili 0.7, AST 20, ALT 14, alk phos 97, ammonia <9, albumin 3.4.
EGD--10/12/24- [facility]-grade II EV eradicated/bandedd, multiple non bleeding angioectasia in stomach with APC, gastritis, normal duodenum
EGD--12/19/24- Dr Vinod Jackson, [place]- varix distal esophagus with red whale sign banded, GAVE with bleeding, s/p APC, normal duodenal bulb
-melena
-anemia with prior iron deficiency acute blood loss-- iron studies now c/w chronic disease
-hx cirrhosis
-hx hep C years ago pt did not recall recent testing
-recent EGD with EV with banding, GAVE with APC, portal gastropathy
-recent hypoxia/bronchiolitis
- pancytopenia
-hypoalbuminemia
-constipation -narcotic induced
-LE edema
other medical issues:
-chronic umbilical hernia
-laryngeal CA 2020 with prior Chemo/XRT
-splenomegaly
-prior diverticulitis
- NIDDM
-CAD with prior stenting and prior Plavix therapy
- HTN
- hypercholesterolemia
-spondylosis of cervical spine with chronic pain
PLAN:
etiology of dark stools and drop in hbg related to recurrent GI bleeding- portal HTN gastropathy, GAVE, EV vs other
etiology of cirrhosis- hep C with hx in past no prior treatment, MASH, vs other -- no formal work up reviewed? completed with Dr. Porter
agree with PPI and octreotide gtt
abx with GI and cirrhosis
plan for EGD today
trend hbg and stool record
add hepatitis panel to confirm hep C status
will add US with Doppler to eval for HCC, any sign of PVT, ascites
Pt is due follow up with Dr. Lamar in February-- I encouraged family to call to see if any sooner eval
pt was on coreg prior to admission
pt may benefit from low dose diuretics when bleeding improved with marked LE edema
MELD 3.0-- 8 based on admission labs
cont dulcolax and add Miralax PRN -- may need daily dosing if not stools
pain control per hospitalist
careful with narcotics and liver disease monitor mental status closely
Pt will need eventual colonoscopy with anemia and due for follow up -- likely outpatient pending EGD finding
family updated all questions answered
-
-
Thank you for consultation and allowing me to participate in the patient's care. Please call the consumer insights specialist GI physician during the after hours with any questions or concerns.
[2025-02-13 06:36] LABS: Ferritin 68.3 ng/ml (17.9-464.0)
[2025-02-13 06:44] LABS: Total Iron Binding Capacity 235 ug/dl (261-462)
--- NOTE | 2025-02-13 07:57 | PTCARENOTE ---
On walking rounds pt is sitting in chair , in room. Meds infusing as ordered. Pt remains NPO
[2025-02-13] MEDS: OXYCONTIN (CONTROLLED RELEASE) 20 MG PO ×2 (08:07→20:28)
[2025-02-13] MEDS: MUCINEX 600 MG PO (08:07)
--- NOTE | 2025-02-13 08:41 | W.PN.HOSP.TC ---
Addendum entered and electronically signed by Rodney Mensah MD 02/13/25 08:43:
#Chronic pancytopenia
2/2 liver disease
follow CBC
Original Note:
Today's Communication/Plan
-
for EGD
follow H&H
Assessment / Plan
Assessment / Plan
69yo M with liver cirrhosis and esophageal varicies s/p bading 45 days before this admission in [facility] came with few days of black stool and worsening dixzziness, found symptomatic anemia
A/P:
#Acute blood loss symptomatic anemia most likely upper GIB 2/2 esophageal varices
two large bore IV, follow H&H, transfuse to keep >7, consent signed in ED
PPI and octreotide drip
GI consult
Ceftriaxone ppx
#DM type 2 with neuropathy
Insulin SS and accuchecks, DM diet when able to eat
check HGbA1c
#Constipation
laxatives
#Hoarseness, chreonic s/p esophageal CA s/p resection
#Chronic LE lymphedema
#Chronic back pain
#HLD
cont home meds
DVT ppx SCDs
Full code
I have spent at least 51min reviewing chart, test results, communication with consuoltants and providing direct patient care
Anticipated Discharge: > 48 hours
Subjective/Interval History
-
Date of Service: February 13, 2025
Objective Data
-
Labs:
Laboratory Results
02/13/25 02/13/25 02/13/25
00:36 05:18 12:20
Hgb 7.4 L 7.9 L Pending
Hct 23.1 L 24.6 L Pending
PT 14.5
INR 1.08
Sodium 137
Potassium 4.9
Chloride 107
Carbon Dioxide 28
BUN 22 H
Creatinine 0.9
Glucose 120 H
Calcium 8.0 L
02/13/25
18:20
Hgb Pending
Hct Pending
PT
INR
Sodium
Potassium
Chloride
Carbon Dioxide
BUN
Creatinine
Glucose
Calcium
Vital Signs:
Vital Signs
Temp Pulse Resp BP Pulse Ox
98.2 F 60 10 101/50 95
02/13/25 08:13 02/13/25 06:00 02/13/25 06:00 02/13/25 06:00 02/13/25 04:00
I&O
02/12/25 02/13/25 02/14/25
06:59 06:59 06:59
Intake Total 1320 / 1320
Output Total 200 / 200
Balance 1120 / 1120
Review of Systems
-
History Source: Patient
All other systems: Reviewed and negative
Physical Exam
-
General: Comfortable
HEENT: Normocephalic
Respiratory: Clear to Auscultation
Cardiac: Regular Rhythm
GI: Soft, Nontender and Nondistended
Musculoskeletal: Edema, Right Lower Extrem and Edema, Left Lower Extrem
Skin: Warm
Neuro: Awake, Alert, Oriented and AO x 3
Psych: Calm
[2025-02-13] MEDS: ZOFRAN 4 MG IV (09:13)
--- NOTE | 2025-02-13 09:49 | PTCARENOTE ---
Report to GI lab,pt fallon noel
[2025-02-13 10:51] LABS: Glucose - Point of Care 135 mg/dl (70-99)
[2025-02-13 11:27] LABS: Hematocrit 23.8 % (39.0-52.0); Hemoglobin 7.6 g/dL (13.0-18.0)
--- NOTE | 2025-02-13 11:30 | PTCARENOTE ---
OPt return from PACU refused to get in bed now in chair with bed alarm. Blood sent to lab IV infusing as ordered. . Pt refused US for now
[2025-02-13 12:12] LABS: Glycohemoglobin (HgbA1c) 5.5 % (4.0-5.6)
[2025-02-13 12:13] LABS: Glucose - Point of Care 132 mg/dl (70-99)
--- NOTE | 2025-02-13 12:44 | PTCARENOTE ---
Pt chair alarm alarming run in room Pt is standing IV beeping trying to go in the BR pt tod he needs to use his call correa foe help as he is on a monitor and has IV fluids running. Pt very agitated that I told him that and wants to speak to hospital
faculty administrator. I told him i would get my network account manager he said no manger an hospital faculty administrator. Pt said his call correa was on the bed, it was not it was in the chair next to him , Pt in BR refuses to let anyone in br to help him
--- NOTE | 2025-02-13 13:02 | PTCARENOTE ---
Pt states he urinated but did not have a BM
[2025-02-13] MEDS: MIRALAX 17 GRAMS PO (14:54)
--- NOTE | 2025-02-13 15:41 | CM ---
Patient found standing next to bed tangled in wires. Patient stated that he had turned off the bed alarm to the patient aide who came to assist. Patient states that he lives with his in a ranch style home 'large' per patient. Patient states
that he has 2 walkers that he purchased one for the hospital and one for the casino. Patient stated his PCP is Dr. Rowe and he uses [facility] [place]. Patient stated he did not anticipate any needs at discharge as he expected to have a staff and
family members at his disposal. CM will continue to follow for discharge planning needs.
Plan; home with no needs anticipated at this time; pending medical treatment plan
[2025-02-13 16:00] LABS: Hematocrit 23.7 % (39.0-52.0); Hemoglobin 7.7 g/dL (13.0-18.0)
[2025-02-13 16:15] LABS: Glucose - Point of Care 201 mg/dl (70-99)
--- NOTE | 2025-02-13 17:20 | PTCARENOTE ---
Pt Accu check 201 when attempting to give insulin he refused and stated he took j]his own Trijardy XR. Educatwed pt that he can not take his own meds without the Dr knowing, Pt was not happy Dr Lopes notified. Pt gave me pill bottle , sent to
pharmacy to be identified and scanned Dr Lopes will order
--- NOTE | 2025-02-13 18:02 | PTCARENOTE ---
Jairo marmolejo that pt supplied is , will bring in new bottle in am
[2025-02-13] MEDS: NSS 1000 IV (20:29)
[2025-02-13] MEDS: ROCEPHIN 1000 MG IV (20:29)
[2025-02-13] MEDS: STERILE WATER FOR INJECTION 10 ML IV (20:29)
[2025-02-13 21:57] LABS: Glucose - Point of Care 150 mg/dl (70-99)
[2025-02-14] VITALS (13 sets, daily range): BP systolic 94–140; BP diastolic 46–99
[2025-02-14] MEDS: NSS IV (00:10)
[2025-02-14] MEDS: PROTONIX 100 IV (02:04)
[2025-02-14] MEDS: SANDOSTATIN 250 MCG IV (02:04)
--- NOTE | 2025-02-14 02:53 | PTCARENOTE ---
Patient very particular with care and demanding at times. Remains on octreotide + protonix gtt. No s/s bleeding. Plan for abd ultrasound today if patient doesn't refuse again. Will continue to monitor.
[2025-02-14 04:21] LABS: INR 1.16; PT 15.3 Sec (11.4-14.6)
[2025-02-14 04:42] LABS: Hematocrit 22.0 % (39.0-52.0); Hemoglobin 7.2 g/dL (13.0-18.0); Mean Corp Hgb Conc. 32.7 g/dL (33.0-37.0); Mean Corpuscular Volume 92.1 fL (80.0-94.0); Nucleated Red Blood Cells % 0 % (-); Red Cell Dist. Width 15.6 % (11.5-14.5)
[2025-02-14 04:53] LABS: ALT (SGPT) 12 U/L (0-50); AST (SGOT) 20 U/L (17-59); Albumin 3.1 g/dl (3.5-5.0); Alkaline Phosphatase 87 U/L (38-126); Blood Urea Nitrogen 18 mg/dl (9-20); Calcium 7.8 mg/dl (8.4-10.2); Carbon Dioxide 27 mmol/L (22-30); Chloride 107 mmol/L (98-107); Estimated Creatinine Clearance 79 ml/min; Glucose 103 mg/dl (70-99); Potassium 4.4 mmol/L (3.5-5.1); Sodium 137 mmol/L (135-145); Total Protein 5.8 g/dl (6.3-8.2); eGFR > 60.00
[2025-02-14 05:08] LABS: Platelet Count 51 10^3/uL (130-400)
[2025-02-14 07:18] LABS: Hepatitis B Surface Antigen Negative (Negative)
[2025-02-14 07:36] LABS: Hepatitis A Antibody, Total Negative (Negative); Hepatitis C Antibody Negative (Negative)
--- NOTE | 2025-02-14 09:41 | W.PN.GI.CBS2 ---
Today's Communication / Plan
-
Hgb has been stable in 7 range
Await US results this am
Has appt with Dr Lamar in February - told him to keep appt
MELD 8 on admission
Advance to low residue diet and monitor for recurrent bleeding
Check CBC after d/c and return to hospital if recurrent bleeding
Assessment / Plan
-
Pt is a 69yo with hx laryngeal CA with prior chemo radiation and biopsy with recent stable eval at [facility] , cirrhosis with hx ?hep C(? 30 years ago no treatment) vs MASH vs other (pt unsure about any prior liver work up), EV with recent banding,
GAVE with prior APC therapy, portal HTN, splenomegaly, prior diverticulitis, NIDDM, CAD with prior stenting and prior Plavix therap(off since September), HTN, hypercholesterolemia, anemia with iron deficiency, spondylosis of cervical spine with prior
follow at [place]. He has several admission to [place] in September and November with GI bleed with EGD noted EV with red whale in November with banding, concern for GAVE with APC therapy. He has been on Coreg along with Protonix therapy. He was
admitted to in December with hypoxemia and sepsis with resp bronchiolitis, anemia with hbg down to 6.7 with transfusion and hematology evaluation. He now returns with rectal bleeding with black stools over last week with no stools for 2 days but also
feeling of fatigue, dizziness that happens with recurrent anemia. On admission noted with hbg 7.5 and dark black heme + stool in ER. Pt is due in February to see Hepatology--Dr. Lamar. On admission hbg 7.5 with prior drop to 6.7 in December,WBC
3, platelets 58,000, INR 1.08, Na 137, k 4.9, bella 107, co2 28, BUN 22, creat 0.9, glucose 120, iron 31, TIBC 235, % sat 13, ferritin 68, bili 0.7, AST 20, ALT 14, alk phos 97, ammonia <9, albumin 3.4.
EGD--10/12/24- [facility]- [place]-grade II EV eradicated/bandedd, multiple non bleeding angioectasia in stomach with APC, gastritis, normal duodenum
EGD--12/19/24- Dr Vinod Jackson, [place]- varix distal esophagus with red whale sign banded, GAVE with bleeding, s/p APC, normal duodenal bulb
Impression:
Melena s/p EGD 02/1321 grade II esophageal varices without stigmata banded x 3, Portal gastropathy with active bleeding cauterized w APC and clipped x 2
-melena
-anemia with prior iron deficiency acute blood loss-- iron studies now c/w chronic disease
-hx cirrhosis
-reported hx hep C years ago but HCV Ab negative this admission.
-recent EGD with EV with banding, GAVE with APC, portal gastropathy
-recent hypoxia/bronchiolitis
- pancytopenia
-hypoalbuminemia
-constipation -narcotic induced
-LE edema
other medical issues:
-chronic umbilical hernia
-laryngeal CA 2019 with prior Chemo/XRT
-splenomegaly
-prior diverticulitis
- NIDDM
-CAD with prior stenting and prior Plavix therapy
- HTN
- hypercholesterolemia
-spondylosis of cervical spine with chronic pain
Subjective
Subjective
Date of Service: February 14, 2025
No BMs, reports constipation. Denies abd pain
Objective
Data Reviewed
Laboratory Data:
Laboratory Results
02/14/25 04:01
02/14/25 04:01
Laboratory Results
PT 15.3 Sec (11.4-14.6) H 02/14/25 04:01
INR 1.16 02/14/25 04:01
APTT 37.6 Sec (23.4-35.0) H 02/12/25 18:42
Total Bilirubin 0.7 mg/dl (0.2-1.3) 02/14/25 04:01
AST 20 U/L (17-59) 02/14/25 04:01
ALT 12 U/L (0-50) 02/14/25 04:01
Alkaline Phosphatase 87 U/L (38-126) 02/14/25 04:01
Vital Signs and I&O:
Vital Signs
Temp Pulse Resp BP Pulse Ox
98.4 F 64 12 105/48 96
02/14/25 07:57 02/14/25 06:00 02/14/25 06:00 02/14/25 06:00 02/14/25 06:00
I&O
02/13/25 02/14/25 02/15/25
06:59 06:59 06:59
Intake Total 1320 / 1320 1320 / 1320
Output Total 200 / 200 300 / 300
Balance 1120 / 1120 1020 / 1020
Physical Exam
Physical Exam
GI: Soft, Non Distended and Non Tender
[2025-02-14] MEDS: MUCINEX 600 MG PO (10:04)
[2025-02-14] MEDS: OXYCONTIN (CONTROLLED RELEASE) 20 MG PO (10:04)
[2025-02-14] MEDS: MIRALAX 17 GRAMS PO (10:05)
[2025-02-14 10:10] LABS: Glucose - Point of Care 134 mg/dl (70-99)
--- NOTE | 2025-02-14 10:25 | W.PN.HOSP.TC ---
Addendum entered and electronically signed by Rodney Mensah MD 02/14/25 12:11:
Please dont use billing under this note, use discharge summary billing instead
Original Note:
Today's Communication/Plan
-
transfuse PRBC and d/c
Assessment / Plan
Assessment / Plan
69yo M with CAD, s/p PCI, liver cirrhosis and esophageal varices s/p bading 45 days before this admission in [facility] came with few days of black stool and worsening dizziness, found symptomatic anemia
A/P:
#Acute blood loss symptomatic anemia most likely upper GIB 2/2 esophageal varices
two large bore IV, follow H&H, transfuse to keep >8 due to Hx of cardiac stents, consent signed in ED
PPI and octreotide drip
GI consult: s/p EGD on 02/13/25 - found Grade II esophageal varices, portal gastropathy with active bleeding s/p 2 clips and APC treatment. Will need repeated EGD in 4 weeks
Ceftriaxone ppx until D/C
#DM type 2 with neuropathy
Insulin SS and accuchecks, DM diet when able to eat
HgbA1c 5.5
#Constipation
laxatives
#Hoarseness, chronic s/p esophageal CA s/p resection
#Chronic LE lymphedema
#Chronic back pain
#HLD
#CAD
cont home meds
Unclear why not on aspirin - defer to established business manager
DVT ppx SCDs
Full code
I have spent at least 36min reviewing chart, test results, communication with consuoltants and providing direct patient care
Anticipated Discharge: Within 24 hours
Subjective/Interval History
-
Date of Service: February 14, 2025
Objective Data
-
Labs:
Laboratory Results
02/14/25
04:01
WBC 2.8 L
Hgb 7.2 L
Hct 22.0 L
Plt Count 51 L
PT 15.3 H
INR 1.16
Sodium 137
Potassium 4.4
Chloride 107
Carbon Dioxide 27
BUN 18
Creatinine 0.8
Glucose 103 H
Calcium 7.8 L
Total Bilirubin 0.7
AST 20
ALT 12
Alkaline Phosphatase 87
Vital Signs:
Vital Signs
Temp Pulse Resp BP Pulse Ox
98.4 F 64 12 105/48 96
02/14/25 07:57 02/14/25 06:00 02/14/25 06:00 02/14/25 06:00 02/14/25 06:00
I&O
02/13/25 02/14/25 02/15/25
06:59 06:59 06:59
Intake Total 1320 / 1320 1320 / 1320
Output Total 200 / 200 300 / 300
Balance 1120 / 1120 1020 / 1020
Review of Systems
-
History Source: Patient
All other systems: Reviewed and negative
Physical Exam
-
General: No Apparent Distress
Neuro: Awake, Alert, Oriented and AO x 3
Psych: Calm
[2025-02-14 11:52] LABS: Glucose - Point of Care 241 mg/dl (70-99)
--- NOTE | 2025-02-14 11:59 | W.DCSUMMARY ---
Discharge Summary
Discharge Data
Date of Admission: 02/12/25
Date of Discharge: 02/14/25
-
Pending Results: No
Hospital Course
69yo M with CAD, s/p PCI, liver cirrhosis and esophageal varices s/p banding 45 days before this admission in [facility] came with few days of black stool and worsening dizziness, found symptomatic anemia s/p EGD on 02/13/25 - found Grade II esophageal
varices, portal gastropathy with active bleeding s/p 2 clips and APC treatment. Will need repeated EGD in 4 weeks. Doppler US of portal system with no PVT. Recommended LE elevation and compression stockings ofr chronic lymphedema. Has Hx of remote
cardiac stents and was taken off Plavix and ASA 1 year ago by his size stamper due to GI bleed risk and thrombocytopenia. Advised to have additional discussion with size stamper for need in ASA for secondary prophylaxis due to esophageal banding and
gastric bleed treatment done on this admission. Unclear if that will change risk/benefit for antiplatelets now, so no recommendations to start them, will defer to established size stamper.
Received 1 unit of PRBC before d/c to keep Hgb close to 8 as per CAD Hx guidelines. Overnight after EGD - no significant hgb decrease noted
I have spent at least 36min reviewing chart, test results, communication with consultants and providing direct patient care
Patient was managed for:
#Acute blood loss symptomatic anemia most likely upper GIB 2/2 esophageal varices
#DM type 2 with neuropathy
#Constipation
#Hoarseness, chronic s/p esophageal CA s/p resection
#Chronic LE lymphedema
#Chronic back pain
#HLD
#CAD
#Asymptomatic cholelithiasis
Discharge Plan
-
Patient Disposition: Home with Home Care
Discharge Diagnosis/Procedures: GIB
Diet: Low Residue
Activity: No restrictions
Driving Restrictions: As prior to admission
Referrals:
Betty Rowe MD [Family Provider, Family Practice]
Prescriptions:
Continued
oxycodone 15 MG tablet
15 mg PO QID
pravastatin 20 mg Tablet
20 mg PO DAILY Qty: 0
oxycodone [OxyContin] 15 MG tablet,oral only,ext.rel.12 hr
20 mg PO Q12
sennosides [senna] 8.6 mg Tablet
17.2 mg PO DAILY
cyanocobalamin (vitamin B-12) 1,000 mcg Tablet
1,000 mcg PO DAILY
carvedilol 3.125 mg Tablet
3.125 mg PO BID
pantoprazole 40 mg Tablet,Delayed Release (Dr/Ec)
40 mg PO BID
folic acid 1 mg Tablet
1 mg PO DAILY
ergocalciferol (vitamin D2) [Vitamin D2] 1,250 mcg (50,000 unit) Capsule
1,250 mcg PO SA
Trijardy XR 12.5-2.5-1,000 mg Tablet, Ir - Er, Biphasic 24hr
1 tab PO BID
polyethylene glycol 3350 17 gram Powder In Packet
17 g PO DAILY Qty: 0 0RF
guaifenesin 600 mg tablet extended release 12hr
600 mg PO DAILY
Discharge Orders:
Discharge Patient (As Directed); Ordered 02/14/25
Ordered By: Rodney Mensah
Discharge Date and Time
Print Language: FILIPINO
[2025-02-14] MEDS: PROTONIX IV (12:47)
--- NOTE | 2025-02-14 14:00 | CM ---
Patient seen at bedside in IMU. Patient stated that he was having his family transport him home and Patient complete IMM form placed on chart. CM will continue to follow for discharge planning needs.
Plan; home with no needs at this time.
--- NOTE | 2025-02-14 17:11 | PTCARENOTE ---
pt discharged home one hour after one unit of blood transfused without s/s reaction. discharge instructions reviewed and and pt verbalize understanding. sub q port flushed and deaccessed. peripheral iv removed.
== END 2025-02-14 17:06 | disposition home or self-care (01) | DRG 441 ==
LOC: IMU 20:45
PROVIDERS: Nurse Practitioner Adult Health; Registered Nurse; ADMITTING PHYSICIAN Internal Medicine; ATTENDING PHYSICIAN Internal Medicine; CONSULT PHYSICIAN Internal Medicine Gastroenterology; EMERGENCY PHYSICIAN Emergency Medicine; FAMILY PHYSICIAN Family Medicine
PROC: 06L38CZ Occlusion of Esophageal Vein with Extraluminal Device, Via Natural or Artificial Opening Endoscopic (ICD-10-PCS; 2025-02-13)
PROC: 0W3P8ZZ Control Bleeding in Gastrointestinal Tract, Via Natural or Artificial Opening Endoscopic (ICD-10-PCS; 2025-02-13)
PROC: 30243N1 Transfusion of Nonautologous Red Blood Cells into Central Vein, Percutaneous Approach (ICD-10-PCS; 2025-02-14)
DX: K76.6 Portal hypertension (principal); I85.11 Secondary esophageal varices with bleeding; D62 Acute posthemorrhagic anemia; D61.818 Other pancytopenia; E78.00 Pure hypercholesterolemia, unspecified; I10 Essential (primary) hypertension; I25.10 Atherosclerotic heart disease of native coronary artery without angina pectoris; E11.40 Type 2 diabetes mellitus with diabetic neuropathy, unspecified; K74.60 Unspecified cirrhosis of liver; G89.29 Other chronic pain; K59.00 Constipation, unspecified; I89.0 Lymphedema, not elsewhere classified; K31.89 Other diseases of stomach and duodenum; E88.09 Other disorders of plasma-protein metabolism, not elsewhere classified; K21.9 Gastro-esophageal reflux disease without esophagitis; Z95.5 Presence of coronary angioplasty implant and graft; Z92.3 Personal history of irradiation; Z92.21 Personal history of antineoplastic chemotherapy; Z88.0 Allergy status to penicillin; Z87.891 Personal history of nicotine dependence; Z85.21 Personal history of malignant neoplasm of larynx; Z85.01 Personal history of malignant neoplasm of esophagus; Z79.899 Other long term (current) drug therapy; Z79.891 Long term (current) use of opiate analgesic; Z79.84 Long term (current) use of oral hypoglycemic drugs; Z86.19 Personal history of other infectious and parasitic diseases
CPT/HCPCS: 76700; 80048; 80053; 82140; 82728; 82962; 83036; 83540; 83550; 85014; 85018; 85025; 85610; 85730; 86704; 86705; 86706; 86708; 86709; 86803; 86850; 86900; 86901; 86920; 87340; 93975; 96361; 96374; 96375; 96376; 99285; J2354; P9016

== ENCOUNTER 2025-02-18 07:15 | Outpatient (RCR) | payer MEDICARE, OTHER, SELFPAY | END 2025-02-18 23:59 | disposition home or self-care (01) | LOC: RPT 07:15 | PROVIDERS: ATTENDING PHYSICIAN Nurse Practitioner Primary Care; FAMILY PHYSICIAN Family Medicine | DX: I89.0 Lymphedema, not elsewhere classified (principal); Z73.6 Limitation of activities due to disability; R26.89 Other abnormalities of gait and mobility | CPT/HCPCS: 97163; 97530; 97760 ==

== ENCOUNTER 2025-03-03 12:29 | Inpatient (IN) | payer MEDICARE, OTHER, SELFPAY ==
[2025-03-03] VITALS (21 sets, daily range): BP systolic 85–153; BP diastolic 44–60; BMI 27.1
--- NOTE | 2025-03-03 07:08 | ED.GENMED ---
History of Present Illness
General
Chief Complaint: Abdominal Symptoms
Source: patient
Exam Limitations: none
Time Seen by Provider: 03/03/25 06:56
History of Present Illness
History of Present Illness:
See MDM
Past History
Past History
ED Past Medical History: CAD, GERD, HTN, Hypercholesterolemia, NIDDM and Other (Chronic back pain, chronic neck pain)
ED Past Surgical History: Cardiac (Stents) and Tonsilectomy
Social History
Tobacco: Former smoker
Alcohol: None
Drug: None
Phy Exam
Physical Exam
Physical Exam:
See MDM
Course
Orders/Labs/Results
Orders:
Orders
03/03/25 07:59
Comprehensive Metabolic Panel Urgent
PTT Urgent
Prothrombin Time Urgent
03/03/25 08:00
Type+Screen Urgent
Complete Blood Count/With Diff Urgent
03/03/25 08:45
Blood Bank Products [* Blood Bank Products] Urgent
's Orders: Lucas Amin DO
Blood Bank Products: *Packed RBC Leuko(PRBC's)
Quantity: 1
Transfuse Today: Yes
Reason: Anemia
HYDROmorphone [Dilaudid] 1 mg IV NOW STA
Abnormal Lab Results
03/03/25 03/03/25
07:59 08:00
WBC 2.6 L 10^3/uL
(4.8-10.8)
RBC 2.40 L 10^6/uL
(4.70-6.10)
Hgb 7.1 L g/dL
(13.0-18.0)
Hct 22.6 L %
(39.0-52.0)
MCV 94.2 H fL
(80.0-94.0)
MCHC 31.4 L g/dL
(33.0-37.0)
RDW 16.1 H %
(11.5-14.5)
Plt Count 60 L 10^3/uL
(130-400)
MPV 10.5 H fL
(7.4-10.4)
Absolute Lymphs (auto) 0.3 L 10^3/uL
(1.2-3.4)
Lymphocytes % 12.4 L %
(20.5-51.1)
Monocytes % 12.8 H %
(1.7-9.3)
PT 14.8 H Sec
(11.4-14.6)
03/03/25 08:00
Vital Signs
Initial and Last Documented VS:
Initial Vital Signs
Temp Pulse Resp BP Pulse Ox
98.3 F 68 20 119/52 98
03/03/25 06:49 03/03/25 06:49 03/03/25 06:49 03/03/25 06:49 03/03/25 06:49
Last Documented Vital Signs
Temp Pulse Resp BP Pulse Ox
98.3 F 64 11 115/54 98
03/03/25 06:49 03/03/25 08:01 03/03/25 08:01 03/03/25 08:01 03/03/25 08:01
MDM/Problems Addressed
Differential Diagnosis Includes:
Note:
CHIEF COMPLAINT(S)
Dark stools
HISTORY OF PRESENT ILLNESS
The patient is a 69-year-old male with a history of esophageal varices and recent endoscopic banding. He presents with the recurrence of dark stools, which began two days ago. He denies the use of blood thinners and reports experiencing some
abdominal pain. Approximately one month prior, he underwent an endoscopy with banding for esophageal varices. The patients hemoglobin levels were previously mentioned to be in the mid to low sevens. Per CAD guidelines, pt states they want to keep
his hgb level > 8
PHYSICAL EXAM
General: Alert, no acute distress.
Skin: Pale
Head: Normocephalic, atraumatic
Neck: Appears supple, trachea midline.
Eyes, Ears, Nose, Mouth, and Throat: Oral mucosa moist.
Cardiovascular: No signs of cyanosis
Respiratory: Respirations are non-labored.
Abdomen: Non-distended
Rectal: Nurse and at bedside. Brown stool is guaiac positive
Musculoskeletal: No deformities
Neurological: No focal neurological deficit observed.
Psychiatric: Cooperative, appropriate mood and affect.
PLAN
1. Check hemoglobin levels to evaluate if further intervention is needed.
2. Consider the possibility of readmission for observation and possible further intervention if required, such as re-banding.
DIFFERENTIAL DIAGNOSIS
The Differential Diagnosis includes, in no particular order and is not limited to:
1. Rebleeding from esophageal varices
2. Peptic ulcer disease
3. Gastrointestinal malignancy
4. Gastric ulcer
5. Duodenal ulcer
6. Gastritis
7. Diverticular bleeding
8. Angiodysplasia
9. Tanya-Johnston tear
10. Hemorrhoids
SUMMARY OF ENCOUNTER
The patient, a 69-year-old male with a history of esophageal varices and recent endoscopic banding, presented to the emergency department with dark stools, which started two days ago. He reported some abdominal pain but denied the use of blood
thinners. A hemoglobin test revealed a level of 7.1. Considering the previous bleeding history and the need to maintain hemoglobin above 8, the decision was made to transfuse one unit of packed red blood cells. Given the risk of rebleeding, the
patient will be readmitted for observation and possible further intervention.
DISPOSITION
Admit to the hospital service.
ASSESSMENT
The recurrence of melena suggests potential rebleeding from esophageal varices or another gastrointestinal source.
PLAN
Readmit the patient to the hospital for observation and further management. Transfuse one unit of packed red blood cells to raise hemoglobin levels. Monitor for signs of rebleeding and intervene as necessary.
INDEPENDENT REVIEW OF LABS AND INTERPRETATION OF TESTS
My independent review of the hemoglobin indicates a level of 7.1, which is below the target threshold for this patient, considering the potential for further gastrointestinal bleeding.
MEDICATION RECONCILIATION
Transfusion of one unit of packed red blood cells administered to address low hemoglobin.
MEDICAL DECISION MAKING
-Number and Complexity of Problems Addressed: Chronic conditions affecting care [esophageal varices] including the differential diagnosis of rebleeding from esophageal varices, peptic ulcer disease, gastrointestinal malignancy, gastric ulcer,
duodenal ulcer, gastritis, diverticular bleeding, angiodysplasia, Tanya-Johnston tear, hemorrhoids.
-Data:
Category 1
The review of hemoglobin lab results indicated a level of 7.1.
-Risk:
Given the recent history of variceal bleeding and current presentation, the risk of complications such as significant bleeding and morbidity is notable. Admission is warranted to closely monitor and intervene if necessary.
*Pulse Oximetry
SaO2: 98
Oxygen Mode of Delivery: Room air
Patient hypoxic: no
*Critical Care Note
Total Time (30-74mins, 75-104mins- exclusive of procedures): 33 min
comment:
The high probability of a clinically significant, sudden or life threatening deterioration of the gastrointestinal system(s) required my full and direct attention, intervention and personal management. The aggregate critical care time was 33
minutes. This time is in addition to time spent performing reported procedures but includes the following:
[x] Data Review and interpretation
[x] Patient assessment and monitoring of vital signs
[x] Documentation
[x] Medication orders and management
ED Attending Note
-
Portions of this chart may have been created with voice recognition software.� Occasional wrong word or��sound alike� substitutions may have occurred due to the inherent limitations of voice recognition software.
Discharge Plan
Departure
Patient Disposition: Admit
Date of Disposition: 03/03/25
Time of Disposition: 08:54
Admit to: Med/Surg
Presentation/result/management discussed w/ accepting MD/DO: Hospitalist
Discharge Problem:
GI bleed
Prescriptions:
No Action
oxycodone 15 MG tablet
15 mg PO QID
pravastatin 20 mg Tablet
20 mg PO DAILY Qty: 0
Patient Comments:
no pharmacy fills
oxycodone [OxyContin] 15 MG tablet,oral only,ext.rel.12 hr
20 mg PO Q12
sennosides [senna] 8.6 mg Tablet
17.2 mg PO DAILY
cyanocobalamin (vitamin B-12) 1,000 mcg Tablet
1,000 mcg PO DAILY
carvedilol 3.125 mg Tablet
3.125 mg PO BID
pantoprazole 40 mg Tablet,Delayed Release (Dr/Ec)
40 mg PO BID
folic acid 1 mg Tablet
1 mg PO DAILY
ergocalciferol (vitamin D2) [Vitamin D2] 1,250 mcg (50,000 unit) Capsule
1,250 mcg PO SA
Trijardy XR 12.5-2.5-1,000 mg Tablet, Ir - Er, Biphasic 24hr
1 tab PO BID
polyethylene glycol 3350 17 gram Powder In Packet
17 g PO DAILY Qty: 0 0RF
guaifenesin 600 mg tablet extended release 12hr
600 mg PO DAILY
acetaminophen [Tylenol Arthritis] 650 mg Tablet Extended Release
1,300 mg PO [id number] PRN (Reason: mild pain)
Referrals:
Best Ray DO [Family Provider, Family Practice]
Interventions
Interventions:
*Risk Screen - Suicide Last Done: 03/03/25 06:49
*General Assessment Last Done: 03/03/25 06:49
*Neglect/Abuse Screening Last Done: 03/03/25 06:49
*ED- Fall Risk Assessment Last Done: 03/03/25 06:49
*ED COVID-19 Vaccine History Last Done: 03/03/25 06:49
MG-Cvvlpk-Ptodhivxtq Assessment Last Done: 03/03/25 07:11
Discharge Date and Time
Print Language: SYRIAN
[2025-03-03 08:16] LABS: Hematocrit 22.6 % (39.0-52.0); Hemoglobin 7.1 g/dL (13.0-18.0); Mean Corp Hgb Conc. 31.4 g/dL (33.0-37.0); Mean Corpuscular Volume 94.2 fL (80.0-94.0); Nucleated Red Blood Cells % 0 % (-); Platelet Count 60 10^3/uL (130-400); Red Cell Dist. Width 16.1 % (11.5-14.5)
[2025-03-03 08:16] LABS: INR 1.13; PT 14.8 Sec (11.4-14.6)
[2025-03-03 08:18] LABS: APTT 33.8 Sec (23.4-35.0)
[2025-03-03] MEDS: DILAUDID 1 MG IV (08:55)
[2025-03-03 08:57] LABS: ALT (SGPT) 15 U/L (0-50); AST (SGOT) 21 U/L (17-59); Albumin 3.3 g/dl (3.5-5.0); Alkaline Phosphatase 91 U/L (38-126); Blood Urea Nitrogen 21 mg/dl (9-20); Calcium 8.5 mg/dl (8.4-10.2); Carbon Dioxide 30 mmol/L (22-30); Chloride 105 mmol/L (98-107); Estimated Creatinine Clearance 81 ml/min; Glucose 127 mg/dl (70-99); Potassium 4.0 mmol/L (3.5-5.1); Sodium 138 mmol/L (135-145); Total Protein 6.3 g/dl (6.3-8.2); eGFR > 60.00
--- NOTE | 2025-03-03 09:45 | CON.GI ---
Addendum entered and electronically signed by Preethi Olson DO 03/03/25 14:28:
Patient seen and examined independently of the PLANT MAINTENANCE SUPERVISOR. I agree with her note with my additions below
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
at [place] and at [facility] with most recent banding in January [address] Maddox when he was here for bleeding at that time. There was no high risk stigmata but she placed 3 bands. He has also had multiple endoscopies with GAVE treated with
APC including most recently February 13, 2025.
Patient states he came in because he was so significantly fatigued he could not walk. He denies being dizzy or feeling like he was get a pass out. His hemoglobin just a couple weeks ago at [facility] was 8.6 and today in the emergency room at 7.1. He
states he had dark formed stools for weeks. He has been off Plavix since September with no NSAIDs or any other anticoagulants. He has pancytopenia and has been followed by hematology at an outside facility with Dr. Handy. He has an appoint with
[facility] on 11 March.
On exam he is comfortable, no acute distress sitting in a chair
Alert and oriented, no asterixis
Patient still has a port in place and his last chemotherapy was over 2 years ago. Followed at [place] and was recently seen by his ENT
# Dark brown formed stool with progressive anemia in the setting of cirrhosis and portal hypertension
-- This is not variceal. He is very stable. His stools are formed. No nausea or hematemesis
-- Most likely this is from his known GAVE which has been difficult to treat
-- EGD tomorrow with APC
-- Patient is concerned about having pathology in his colon as he has not had a colonoscopy in about 8 years ago. However I reminded him that every time he has an endoscopy as a source for his anemia. Colonoscopy when he is more stable or if the
upper endoscopy is completely normal
-- Ceftriaxone, PPI, octreotide, okay for clear liquid diet which he is refusing
Addendum entered and electronically signed by LUI Ames 03/03/25 11:00:
pt declines to be on clear diet will allow low residue then NPO in AM
Addendum entered and electronically signed by LUI Ames 03/03/25 10:57:
reviewed with Dr. Olson-- will add PPI, octeotide and abx. Plan for EGD in AM. ok for clear diet today.
Original Note:
Consultation
-
Date/Time Consultation Requested: 03/03/25914
Date/Time Consultation Performed: 03/03/25944
Requesting Provider: Lucas Amin DO
Performing Provider: LUI Burns, Preethi Olson DO
Reason for Consultation: GI bleeding
Medical History
Chief Complaint / HPI
Chief Complaint: dizziness, weakness, GI bleeding
History of Present Illness:
Pt is a 69yo with hx laryngeal CA with prior chemo radiation and biopsy with recent stable eval at [facility] , cirrhosis with ? hep C exposure but neg hep C testing last admission vs [facility] vs other), EV with recent banding at [place] and
[place] , GAVE with prior APC therapy, portal HTN, splenomegaly, prior diverticulitis, NIDDM, CAD with prior stenting and prior Plavix therapy(off since September), HTN, hypercholesterolemia, anemia with iron deficiency, spondylosis of cervical
spine. He has several admission to [facility] in September and November with GI bleed with EGD noted EV with red whale in November with banding, concern for GAVE with APC therapy. He has been on Coreg along with Protonix therapy. He was admitted to in
December with hypoxemia and sepsis with resp bronchiolitis, anemia with hbg down to 6.7 with transfusion and hematology evaluation. He returned in January with repeat EGD with Yesica Saez with grade II EV no high risk stigmata, banded x 3, eradicated
portal HTN gastropathy with active bleeding, s/p APC. he is due follow with dr. Lamar 03/11 but noted increased dizziness, weakness and darker daily BM and noted with hbg 12/24 on admission. Prior hbg was 7.2 when he left 02/14. other labs
notable for glucose 127, albumin 3.3 normal LFT's, INR 1.13.
In review with patient he began with liver issues several months ago. He is noted with bleeding but also lower ext edema but denies ascites or encephalopathy. He admit to minimal dysphagia which is chronic with hx laryngeal Ca. He also
admits to some nausea without vomiting and mild upper abdominal pain. He also admits to constipation with narcotic use with Miralax use as needed. He admits to chronic back pain on chronic narcotics He otherwise denies odynophagia, GERD, or
red blood in stools. Currently off anticoagulation and no NSAID needed.
EGD--10/12/24- Volchon[facility]- [place]-grade II EV eradicated/banded, multiple non bleeding angioectasia in stomach with APC, gastritis, normal duodenum
EGD--12/19/24- Dr Vinod Jackson, [place]- varix distal esophagus with red whale sign banded, GAVE with bleeding, s/p APC, normal duodenal bulb
colonoscopy about 8 years ago due for repeat
EGD- 02/13/25- Yesica Saez MD grade II EV no high risk stigmata, banded x 3, eradicated portal HTN gastropathy with active bleeding, s/p APC
02/14/25- US abdomen with doppler Normal ultrasound evaluation of the abdominal vasculature.
Limited visualization of the liver, relatively small in size, with fibrofatty parenchymal changes.Splenomegaly.
Cholelithiasis without sonographic features of acute cholecystitis. 7 mm common bile duct, considered top normal in size.
Past Medical History
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
prior APC, portal HTN gastropathy, splenomegaly, anemia with iron deficiency, spondylosis of cervical spine with chronic neck and back pain,, cholelithiasis,diverticulitis, umbilical hernia )
Past Surgical History: Cardiac (prior stenting ) and Other (larynx surgery )
Social History
Tobacco: Former Smoker (quit 2015)
Alcohol: None
Drug: Marijuana (20 years ago )
Personal:
Living: With Family
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
Family History
Family History: Other (no noted hx per chart)
Allergies / Home Medications
Allergy/AdvReac Type Severity Reaction Status Date / Time
Penicillins Allergy CHILDHOOD Verified 03/03/25 06:48
�Medication �Instructions �Recorded
oxycodone 15 mg tablet 15 mg PO QID Pain 01/29/20
oxycodone 15 mg tablet,crush 20 mg PO Q12 Pain 01/29/20
resistant,extended release 12 hr
(OxyContin)
pravastatin 20 mg tablet 20 mg PO DAILY High Cholesterol ##0 01/29/20
carvedilol 3.125 mg tablet 3.125 mg PO BID Blood Pressure 01/12/25
cyanocobalamin (vitamin B-12) 1,000 mcg PO DAILY Supplement 01/12/25
1,000 mcg tablet
empagliflozin 12.5 mg-linaglipt 1 tab PO BID Diabetes 01/12/25
2.5 mg-metform ER 1,000 mg
tablet,24hr (Trijardy XR)
ergocalciferol (vitamin D2) 1,250 1,250 mcg PO SA Supplement 01/12/25
mcg (50,000 unit) capsule (Vitamin
D2)
folic acid 1 mg tablet 1 mg PO DAILY Supplement 01/12/25
pantoprazole 40 mg tablet,delayed 40 mg PO BID Gastrointestinal Issue 01/12/25
release
sennosides 8.6 mg tablet (senna) 17.2 mg PO DAILY Constipation 01/12/25
polyethylene glycol 3350 17 gram 17 g PO DAILY #0 ea 01/15/25
oral powder packet
guaifenesin 600 mg tablet, 600 mg PO DAILY 02/12/25
extended release 12 hr
acetaminophen 650 mg 1,300 mg PO [id number] PRN mild pain 03/03/25
tablet,extended release
Review of Systems
-
History Source: Patient
Constitutional: Reports Weight Loss ( few lbs last few day with some decreased appetite ) and Chills
EENT: Reports No Symptoms
Respiratory: Reports No Symptoms
Cardiac: Reports No Symptoms
Abdomen/GI: Reports Abdominal Pain (several days ago), Constipated and Other (dark brown stools)
: Reports No Symptoms
Musculoskeletal: Reports Edema
Skin: Reports No Symptoms
Neurological: Reports Dizzy and Weakness
Hematologic/Lymphatic: Reports Bleeding (dark brown stools)
Vital Signs
Temp Pulse Resp BP Pulse Ox
98.3 F 62 12 96/46 94
03/03/25 09:33 03/03/25 09:33 03/03/25 09:33 03/03/25 09:33 03/03/25 08:45
Physical Exam
Exam
General: No Apparent Distress
HEENT: Normocephalic and Anicteric
Respiratory: Clear
Cardiac: Regular Rhythm
GI: Soft, Non Tender, Non Distended and Other (palp umbilical hernia)
Rectal: Other (brown heme + per ER)
Musculoskeletal: No Clubbing and No Cyanosis
Skin: Warm and Dry
Neuro: Awake, Alert and AO x 3
Psych: Calm
Results
WBC 2.6 10^3/uL (4.8-10.8) L 03/03/25 08:00
Hgb 7.1 g/dL (13.0-18.0) L 03/03/25 08:00
Hct 22.6 % (39.0-52.0) L 03/03/25 08:00
MCV 94.2 fL (80.0-94.0) H 03/03/25 08:00
Plt Count 60 10^3/uL (130-400) L 03/03/25 08:00
Absolute Neuts (auto) 1.8 10^3/uL (1.4-6.5) 03/03/25 08:00
PT 14.8 Sec (11.4-14.6) H 03/03/25 07:59
INR 1.13 03/03/25 07:59
APTT 33.8 Sec (23.4-35.0) 03/03/25 07:59
Sodium 138 mmol/L (135-145) 03/03/25 07:59
Potassium 4.0 mmol/L (3.5-5.1) 03/03/25 07:59
Chloride 105 mmol/L (98-107) 03/03/25 07:59
Carbon Dioxide 30 mmol/L (22-30) 03/03/25 07:59
BUN 21 mg/dl (9-20) H 03/03/25 07:59
Creatinine 0.8 mg/dL (0.7-1.3) 03/03/25 07:59
Calcium 8.5 mg/dl (8.4-10.2) 03/03/25 07:59
Total Bilirubin 0.8 mg/dl (0.2-1.3) 03/03/25 07:59
AST 21 U/L (17-59) 03/03/25 07:59
ALT 15 U/L (0-50) 03/03/25 07:59
Alkaline Phosphatase 91 U/L (38-126) 03/03/25 07:59
Diagnostic Image Results:
02/14/25- US abdomen with doppler Normal ultrasound evaluation of the abdominal vasculature.
Limited visualization of the liver, relatively small in size, with fibrofatty parenchymal changes.Splenomegaly.
Cholelithiasis without sonographic features of acute cholecystitis. 7 mm common bile duct, considered top normal in size.
7/20/25 CT chest
No findings to confirm central pulmonary embolism. Evaluation of peripheral pulmonary arterial branches limited at least in part due to respiratory/motion artifact and peripheral pulmonary embolism cannot be excluded.
Some tree in bud type pulmonary nodules, particularly in the left lung suggest inflammatory/infectious etiology such as bronchiolitis.
\\Coronary artery calcifications.
Prior GI Procedures:
EGD--10/12/24- [facility]- [place]-grade II EV eradicated/banded, multiple non bleeding angioectasia in stomach with APC, gastritis, normal duodenum
EGD--12/19/24- Dr Vinod Jackson, [place]- varix distal esophagus with red whale sign banded, GAVE with bleeding, s/p APC, normal duodenal bulb
colonoscopy about 8 years ago due for repeat
EGD- 02/13/25- Yesica Saez MD grade II EV no high risk stigmata, banded x 3, eradicated portal HTN gastropathy with active bleeding, s/p APC
Assessment / Plan
-
Pt is a 69yo with hx laryngeal CA with prior chemo radiation and biopsy with recent stable eval at [facility] , cirrhosis with ? hep C exposure but neg hep C testing last admission vs [facility] vs other), EV with recent banding at [place] and
[place] , GAVE with prior APC therapy, portal HTN, splenomegaly, prior diverticulitis, NIDDM, CAD with prior stenting and prior Plavix therapy(off since September), HTN, hypercholesterolemia, anemia with iron deficiency, spondylosis of cervical
spine. He has several admission to [facility] in September and November with GI bleed with EGD noted EV with red whale in November with banding, concern for GAVE with APC therapy. He has been on Coreg along with Protonix therapy. He was admitted to in
December with hypoxemia and sepsis with resp bronchiolitis, anemia with hbg down to 6.7 with transfusion and hematology evaluation. He returned in January with repeat EGD with Yesica Saez with grade II EV no high risk stigmata, banded x 3, eradicated
portal HTN gastropathy with active bleeding, s/p APC. he is due follow with dr. Lamar 03/11 but noted increased dizziness, weakness and darker daily BM and noted with hbg 7/ on admission. Prior hbg was 7.2 when he left 02/14. other labs
notable for glucose 127, albumin 3.3 normal LFT's, INR 1.13.
EGD--10/12/24- [place]- [place]-grade II EV eradicated/banded, multiple non bleeding angioectasia in stomach with APC, gastritis, normal duodenum
EGD--12/19/24- Dr Vinod Jackson, [place]- varix distal esophagus with red whale sign banded, GAVE with bleeding, s/p APC, normal duodenal bulb
colonoscopy about 8 years ago due for repeat
EGD- 02/13/25- Yesica Saez MD grade II EV no high risk stigmata, banded x 3, eradicated portal HTN gastropathy with active bleeding, s/p APC
02/14/25- US abdomen with doppler Normal ultrasound evaluation of the abdominal vasculature.
Limited visualization of the liver, relatively small in size, with fibrofatty parenchymal changes.Splenomegaly.
Cholelithiasis without sonographic features of acute cholecystitis. 7 mm common bile duct, considered top normal in size.
Impression:
-symptomatic anemia with prior iron deficiency acute blood loss--prior iron studies c/w chronic disease
-dark heme
-hx cirrhosis possible mash vs other prior hep C exposure with neg testing in January
-recent multiple EGD's with EV with banding, GAVE with APC, portal gastropathy
- hypoxia/bronchiolitis in december
- pancytopenia
-hypoalbuminemia
-constipation -narcotic induced
-LE edema
other medical issues:
-chronic umbilical hernia
-laryngeal CA 2020 with prior Chemo/XRT
-splenomegaly
-prior diverticulitis
- NIDDM
-CAD with prior stenting and prior Plavix therapy
- HTN
- hypercholesterolemia
-spondylosis of cervical spine with chronic pain
PLAN:
etiology of dark stools and drop in hbg related to recurrent GI bleeding- portal HTN gastropathy, GAVE, EV, ulceration with recent banding vs other-- likely slow bleed over time-- minimal change in hbg from Discharge may be slow blood loss
may also be multi factorial with pancytopenia
etiology of cirrhosis- MASH, vs other -- no formal work up reviewed? completed with Dr. Porter but due follow up wtih Dr. Lamar next week
with minimal change in hbg and only one stool daily will review with Dr. Olson for EGD along with adding Octeotide and abx
resume PPI BID
NPO til decide on EGD and timing
trend hbg and stool record
US with Doppler completed last admission
Pt is due follow up with Dr. Lamar March 11
pt was on coreg prior to admission
pt may benefit from low dose diuretics when bleeding improved with marked LE edema
MELD 3.0- 7 was 8 last admission
bowel regiment with chronic narcotic use
pain control per hospitalist
careful with narcotics and liver disease monitor mental status closely
monitor for HE per family some forgetfulness prior to last admission but remain oriented this am
Pt will need eventual colonoscopy with anemia and due for follow up
-
-
Thank you for consultation and allowing me to participate in the patient's care. Please call the carton lettering machine operator GI physician during the after hours with any questions or concerns.
[2025-03-03] MEDS: PROTONIX IV 80 MG IV (11:24)
[2025-03-03] MEDS: PROTONIX 100 IV ×2 (11:25→20:22)
[2025-03-03] MEDS: ROCEPHIN 1000 MG IV (11:25)
[2025-03-03] MEDS: SANDOSTATIN 50 MCG IV (11:26)
[2025-03-03] MEDS: SANDOSTATIN 250 MCG IV ×2 (11:55→22:53)
--- NOTE | 2025-03-03 12:08 | HPS.HSE ---
Family Physician
-
Family Physician: Best Ray
Chief Complaint
-
Weakness
History of Present Illness
69-year-old male with past medical history of laryngeal cancer with prior chemo/radiation, cirrhosis, GI bleed status post recent banding, portal hypertension, splenomegaly, [id number]-yzymveyhe diabetes mellitus, CAD with prior stenting,
hypertension, hyperlipidemia, anemia came to the hospital with low hemoglobin. Patient was recently here with GI bleed which showed esophageal varices on endoscopy and patient was banded. Per patient he does follow-up with hematology outpatient
get routine blood work and transfusion. Currently he denies any chest pain. Does endorse some shortness of breath. Denies any sick contacts, fever/chills.
Medical History
Past Medical History
Past Medical History: Reports Other (laryngeal cancer with prior chemo/radiation, cirrhosis, GI bleed status post recent banding, portal hypertension, splenomegaly, scg-jsjqeea-ivyvozwve diabetes mellitus, CAD with prior stenting, hypertension,
hyperlipidemia, anemi)
Past Surgical History: Reports Other
Social History
Tobacco: Former Smoker
Alcohol: None
Drug: None
Family History
Family History: Not pertinent
Allergies / Home Medications
Allergies reflects when Allergies were last updated in [facility].
Home Medications with original date entered in [facility]
Allergy/Medication List:
Allergies
Allergy/AdvReac Type Severity Reaction Status Date / Time
Penicillins Allergy CHILDHOOD Verified 03/03/25 06:48
Home Medications
oxycodone 15 mg tablet 15 mg PO QID Pain 01/29/20
oxycodone 15 mg tablet,crush resistant,extended release 12 hr (OxyContin) 20 mg PO Q12 Pain 01/29/20
pravastatin 20 mg tablet 20 mg PO DAILY High Cholesterol ##0 01/29/20
carvedilol 3.125 mg tablet 3.125 mg PO BID Blood Pressure 01/12/25
cyanocobalamin (vitamin B-12) 1,000 mcg tablet 1,000 mcg PO DAILY Supplement 01/12/25
empagliflozin 12.5 mg-linaglipt 2.5 mg-metform ER 1,000 mg tablet,24hr (Trijardy XR) 1 tab PO BID Diabetes 01/12/25
ergocalciferol (vitamin D2) 1,250 mcg (50,000 unit) capsule (Vitamin D2) 1,250 mcg PO SA Supplement 01/12/25
folic acid 1 mg tablet 1 mg PO DAILY Supplement 01/12/25
pantoprazole 40 mg tablet,delayed release 40 mg PO BID Gastrointestinal Issue 01/12/25
sennosides 8.6 mg tablet (senna) 17.2 mg PO DAILY Constipation 01/12/25
polyethylene glycol 3350 17 gram oral powder packet 17 g PO DAILY #0 ea 01/15/25
guaifenesin 600 mg tablet, extended release 12 hr 600 mg PO DAILY 02/12/25
acetaminophen 650 mg tablet,extended release 1,300 mg PO [id number] PRN mild pain 03/03/25
Review of Systems
-
History Source: Patient
A 12 point ROS was completed and negative except as noted: Yes
Constitutional: Reports Fatigue
Physical Exam
Vital Signs
Vital Signs
Temp Pulse Resp BP Pulse Ox
98.2 F 67 16 117/60 94
03/03/25 11:06 03/03/25 12:00 03/03/25 12:00 03/03/25 12:00 03/03/25 08:45
Physical Exam
General: Well Nourished and No Apparent Distress
HEENT: NormoCephalic and Moist mucous membranes
Respiratory: Clear and Non Labored Respirations; No Wheezes
Cardiac: S1/S2 and Regular Rhythm
Breast: Deferred by me
GI: Soft, Non Tender, Non Distended and Normal Bowel Sounds
Genito-urinary: No Kwong
Musculoskeletal: No Edema
Neuro: Awake, Alert, Oriented and AO x 3
Psych: Calm and Intact Judgment/Insight
Laboratory Results
-
03/03/25 08:00
03/03/25 07:59
Laboratory Results
PT 14.8 Sec (11.4-14.6) H 03/03/25 07:59
INR 1.13 03/03/25 07:59
APTT 33.8 Sec (23.4-35.0) 03/03/25 07:59
Total Bilirubin 0.8 mg/dl (0.2-1.3) 03/03/25 07:59
AST 21 U/L (17-59) 03/03/25 07:59
ALT 15 U/L (0-50) 03/03/25 07:59
Alkaline Phosphatase 91 U/L (38-126) 03/03/25 07:59
Data Reviewed
-
Lab Data: Labs Reviewed by me and Discussed with Patient
Impression/Plan
-
Symptomatic anemia with heme positive stool
History of iron deficiency anemia
History of cirrhosis, recent EGD with variceal banding
Portal gastropathy
Start PPI drip, octreotide drip.
Hemoglobin 7.1, transfuse PRBC. Goal hemoglobin greater than 8. Repeat H&H later today
Follows up with hematology outpatient
Follows with Dr. Lamar outpatient
Plan for GI scope 03/04. Okay for low residue diet per GI. NPO past midnight
DM type 2 with neuropathy
Insulin SS and accuchecks
Recent HgbA1c 5.5
#Constipation
laxatives
#Hoarseness, chronic s/p esophageal CA s/p resection
#Chronic LE lymphedema
#Chronic back pain with chronic opioid dependence
#HLD
#CAD
cont home meds
Has been off aspirin lately- defer to established child adolescent care
DVT ppx SCDs
Full code
I spent a total of 78 minutes with the patient or on the floor. More than 50% of this time involved counseling and coordination of care.
[2025-03-03] MEDS: ROXICODONE 15 MG PO ×3 (13:05→22:53)
--- NOTE | 2025-03-03 17:15 | PTCARENOTE ---
Pt arrived to unit around 1700 this shift from ED. He was able to ambulate from stretcher to bed in room. Reports mild pain in back, scheduled pain medication given. Pt requests a rolling walker and a recliner to sleep in. Both items obtained and
set up in patient's room. VSS. Pt oriented to room and staff. Assisted to call for dinner. All needs met at this time. Plan of care ongoing.
[2025-03-03 17:34] LABS: Glucose - Point of Care 170 mg/dl (70-99)
--- NOTE | 2025-03-03 17:48 | PTCARENOTE ---
Pt with hx of DM. Takes Jardiance at home. He is ordered ACHS sugar checks. Blood glucose checked after arrival to unit before dinner and he is at 170. This nurse explained that he will need 1 unit of coverage at this time. Patient states that he
has never taken insulin and he refuses to take it now. MD notified and aware. Jardiance to be held for now per MD. Will continue to monitor patient's blood sugars. Plan of care ongoing.
[2025-03-03 17:54] LABS: Iron 54 ug/dl (49-181)
[2025-03-03 18:03] LABS: Total Iron Binding Capacity 250 ug/dl (261-462)
[2025-03-03] MEDS: COREG 3.125 MG PO (20:38)
[2025-03-03] MEDS: OXYCONTIN (CONTROLLED RELEASE) 20 MG PO (20:38)
[2025-03-03 20:40] LABS: Hematocrit 27.2 % (39.0-52.0); Hemoglobin 8.7 g/dL (13.0-18.0)
[2025-03-03 21:38] LABS: Glucose - Point of Care 210 mg/dl (70-99)
[2025-03-03 21:48] LABS: Ferritin 39.4 ng/ml (17.9-464.0)
[2025-03-04] VITALS (12 sets, daily range): BP systolic 22–124; BP diastolic 45–67; BMI 27.1
[2025-03-04 05:21] LABS: Blood Urea Nitrogen 19 mg/dl (9-20); Calcium 8.2 mg/dl (8.4-10.2); Carbon Dioxide 31 mmol/L (22-30); Chloride 106 mmol/L (98-107); Estimated Creatinine Clearance 81 ml/min; Glucose 104 mg/dl (70-99); Potassium 4.6 mmol/L (3.5-5.1); Sodium 139 mmol/L (135-145); eGFR > 60.00
[2025-03-04 06:03] LABS: Hematocrit 23.2 % (39.0-52.0); Hemoglobin 7.4 g/dL (13.0-18.0); Mean Corp Hgb Conc. 31.9 g/dL (33.0-37.0); Mean Corpuscular Volume 93.9 fL (80.0-94.0); Nucleated Red Blood Cells % 0 % (-); Platelet Count 47 10^3/uL (130-400); Red Cell Dist. Width 16.1 % (11.5-14.5)
[2025-03-04 06:17] LABS: Glucose - Point of Care 114 mg/dl (70-99)
[2025-03-04] MEDS: ROXICODONE 15 MG PO ×3 (06:21→16:59)
[2025-03-04] MEDS: PROTONIX 100 IV (07:50)
[2025-03-04] MEDS: COREG PO ×2 (10:05→19:53)
[2025-03-04] MEDS: FOLVITE PO (10:05)
[2025-03-04 11:47] LABS: Glucose - Point of Care 143 mg/dl (70-99)
[2025-03-04] MEDS: OXYCONTIN (CONTROLLED RELEASE) PO (12:03)
[2025-03-04] MEDS: SANDOSTATIN IV (12:04)
--- NOTE | 2025-03-04 12:14 | W.PN.HOSP.TC ---
Today's Communication/Plan
-
Monitor vital signs see plan
Plan for scope today by GI
Transfuse another unit PRBC
Assessment / Plan
Assessment / Plan
General: Well Nourished and No Apparent Distress
HEENT: NormoCephalic and Moist mucous membranes
Respiratory: Clear and Non Labored Respirations; No Wheezes
Cardiac: S1/S2 and Regular Rhythm
GI: Soft, Non Tender, Non Distended and Normal Bowel Sounds
Genito-urinary: No Kwong
Musculoskeletal: No Edema
Neuro: Awake, Alert, Oriented and AO x 3
Psych: Calm and Intact Judgment/Insight
Symptomatic anemia with heme positive stool
History of iron deficiency anemia
History of cirrhosis, recent EGD with variceal banding
Portal gastropathy
cw PPI drip, octreotide drip.
Hemoglobin 7.1 on admission, status post 1 unit PRBC. Hemoglobin today 7.3, transfuse another unit PRBC. Goal hemoglobin greater than 8.
Follows up with hematology outpatient
Follows with Dr. Lamar outpatient
Plan for GI scope 03/04. NPO
Pancytopenia likely secondary to cirrhosis
Monitor
DM type 2 with neuropathy
Insulin SS and accuchecks
Recent HgbA1c 5.5
#hs of Constipation
laxatives
#Hoarseness, chronic s/p esophageal CA s/p resection
#Chronic LE lymphedema
#Chronic back pain with chronic opioid dependence
#HLD
#CAD
cont home meds
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
DVT ppx SCDs
Full code
I spent a total of 54 minutes with the patient or on the floor. More than 50% of this time involved counseling and coordination of care.
Anticipated Discharge: 24 - 48 hours
Subjective/Interval History
-
Date of Service: March 04, 2025
Denies pain
Objective Data
-
Labs:
Laboratory Results
03/04/25
04:39
WBC 2.3 L*
Hgb 7.4 L
Hct 23.2 L
Plt Count 47 L D
Sodium 139
Potassium 4.6
Chloride 106
Carbon Dioxide 31 H
BUN 19
Creatinine 0.8
Glucose 104 H
Calcium 8.2 L
Vital Signs:
Vital Signs
Temp Pulse Resp BP Pulse Ox
98.1 F 64 18 103/49 98
03/04/25 11:20 03/04/25 11:20 03/04/25 11:20 03/04/25 11:20 03/04/25 11:20
I&O
03/03/25 03/04/25 03/05/25
06:59 06:59 06:59
Intake Total 250 / 250 250 / 250
Output Total 800 / 800
Balance 250 / 250 -550 / -550
[2025-03-04] MEDS: STERILE WATER FOR INJECTION 10 ML IV (12:23)
[2025-03-04] MEDS: ROCEPHIN 1000 MG IV (12:23)
--- NOTE | 2025-03-04 15:24 | CM ---
Initial assessment completed with patient who lives with his in a 1 story home plus basement, no steps to enter. [employer] patient was independent in ADL's and ambulation with a rollator; also has a SPC. Pt sleeps in a recliner. No in-home services.
Drives in the community.
Admission DX: GI Bleed
Upper GI endoscopy done today
Plan: Home with no needs vs. [facility] (pt just d/c'd from [facility] in January 2025).
PCP: Dr. Best Ray
Pharmacy: [facility] in [place]
[2025-03-04 16:37] LABS: Glucose - Point of Care 197 mg/dl (70-99)
[2025-03-04] MEDS: NON-FORMULARY ITEM 1 TABLET PO (17:13)
[2025-03-04] MEDS: MIRALAX 17 GRAMS PO (19:36)
[2025-03-04] MEDS: NSS (PRESERVATIVE FREE) 10 ML IV (19:37)
[2025-03-04] MEDS: PROTONIX IV 40 MG IV (19:38)
[2025-03-04] MEDS: SENOKOT-S 1 TABLET PO (19:38)
[2025-03-04] MEDS: OXYCONTIN (CONTROLLED RELEASE) 20 MG PO (19:39)
[2025-03-04 21:35] LABS: Glucose - Point of Care 187 mg/dl (70-99)
[2025-03-05] VITALS (7 sets, daily range): BP systolic 95–110; BP diastolic 39–50; BMI 27.4
[2025-03-05] MEDS: ROXICODONE 15 MG PO ×3 (00:05→12:39)
[2025-03-05 05:35] LABS: Blood Urea Nitrogen 18 mg/dl (9-20); Calcium 8.3 mg/dl (8.4-10.2); Carbon Dioxide 30 mmol/L (22-30); Chloride 106 mmol/L (98-107); Estimated Creatinine Clearance 81 ml/min; Glucose 120 mg/dl (70-99); Potassium 4.3 mmol/L (3.5-5.1); Sodium 138 mmol/L (135-145); eGFR > 60.00
[2025-03-05 05:41] LABS: Hematocrit 26.8 % (39.0-52.0); Hemoglobin 8.8 g/dL (13.0-18.0); Mean Corp Hgb Conc. 32.8 g/dL (33.0-37.0); Mean Corpuscular Volume 92.4 fL (80.0-94.0); Nucleated Red Blood Cells % 0 % (-); Platelet Count 50 10^3/uL (130-400); Red Cell Dist. Width 17.7 % (11.5-14.5)
[2025-03-05 08:20] LABS: Glucose - Point of Care 196 mg/dl (70-99)
[2025-03-05] MEDS: COREG 3.125 MG PO (08:51)
[2025-03-05] MEDS: SENOKOT-S 1 TABLET PO (08:51)
[2025-03-05] MEDS: FOLVITE 1 MG PO (08:51)
[2025-03-05] MEDS: NSS (PRESERVATIVE FREE) 10 ML IV (08:52)
[2025-03-05] MEDS: NON-FORMULARY ITEM 1 TABLET PO (08:52)
[2025-03-05] MEDS: PROTONIX IV 40 MG IV (08:52)
[2025-03-05] MEDS: OXYCONTIN (CONTROLLED RELEASE) 20 MG PO (08:56)
[2025-03-05] MEDS: DESENEX/MITRAZOL/ZEASORB 1 APPLIC TOPICAL (09:00)
--- NOTE | 2025-03-05 11:29 | W.PN.HOSP.TC ---
Addendum entered and electronically signed by Woodrow Manuel MD 03/05/25 13:56:
Correction: Octreotide and PPI drip has been stopped
Original Note:
Today's Communication/Plan
-
Monitor vitals
See plan
Low-dose Lasix given recent blood transfusion and history of lymphedema
Monitor hemoglobin
PPI
Discharge today
Time of discharge 38 minutes
Assessment / Plan
Assessment / Plan
General: Well Nourished and No Apparent Distress
HEENT: NormoCephalic and Moist mucous membranes
Respiratory: Clear and Non Labored Respirations; No Wheezes
Cardiac: S1/S2 and Regular Rhythm
GI: Soft, Non Tender, Non Distended and Normal Bowel Sounds
Genito-urinary: No Kwong
Musculoskeletal: No Edema
Neuro: Awake, Alert, Oriented and AO x 3
Psych: Calm and Intact Judgment/Insight
Symptomatic anemia with heme positive stool
History of iron deficiency anemia
History of cirrhosis, recent EGD with variceal banding
Portal gastropathy
cw PPI drip, octreotide drip.
Hemoglobin 7.1 on admission, status post 2 unit PRBC. Hemoglobin today 8.8. Goal hemoglobin greater than 8.
Follows up with hematology outpatient
Follows with Dr. Lamar outpatient
s/p EGD 03/04 with healing esophageal ulcer with no stigmata of recent bleeding, portal hypertensive gastropathy, gastric antral vascular ectasia. Mild duodenitis. Esophageal varices. PPI twice daily. Outpatient follow-up with GI/hepatology.
Pancytopenia likely secondary to cirrhosis
Monitor
DM type 2 with neuropathy
Insulin SS and accuchecks
Recent HgbA1c 5.5
#hs of Constipation
laxatives
#Hoarseness, chronic s/p esophageal CA s/p resection
#Chronic LE lymphedema
#Chronic back pain with chronic opioid dependence
#HLD
#CAD
cont home meds
Has been off aspirin lately- defer to established outside cutter
DVT ppx SCDs
Full code
Anticipated Discharge: Today
Subjective/Interval History
-
Date of Service: March 05, 2025
denies pain
Objective Data
-
Labs:
Laboratory Results
03/05/25
04:57
WBC 3.1 L
Hgb 8.8 L
Hct 26.8 L
Plt Count 50 L
Sodium 138
Potassium 4.3
Chloride 106
Carbon Dioxide 30
BUN 18
Creatinine 0.8
Glucose 120 H
Calcium 8.3 L
Vital Signs:
Vital Signs
Temp Pulse Resp BP Pulse Ox
98.4 F 68 16 100/42 100
03/05/25 10:46 03/05/25 10:46 03/05/25 10:46 03/05/25 10:51 03/05/25 10:46
I&O
03/04/25 03/05/25 03/06/25
06:59 06:59 06:59
Intake Total 250 / 250 1210 / 1210
Output Total 1974
Balance 250 / 250 -765 / -765
[2025-03-05 11:37] LABS: Glucose - Point of Care 178 mg/dl (70-99)
[2025-03-05] MEDS: LASIX 20 MG PO (11:40)
--- NOTE | 2025-03-05 11:43 | W.DCSUMMARY ---
Discharge Summary
Discharge Data
Date of Admission: 03/03/25
Date of Discharge: 03/05/25
-
Pending Results: Yes
Hospital Course
65-year-old male with past medical history of diabetes mellitus with neuropathy, constipation, esophageal cancer s/p resection, chronic lower extremity lymphedema, chronic back pain with chronic opioid dependence, hyperlipidemia, CAD, cirrhosis with
esophageal varices, anemia came to the hospital with symptomatic anemia with heme positive stool. Patient was given blood transfusion on this hospitalization which improved his hemoglobin. He was also seen by gastroenterology who performed EGD
which showed healing esophageal ulcer, portal hypertensive gastropathy and gastric antral vascular ectasia. Patient instructed to continue PPI twice daily and to follow-up with GI/hepatology outpatient. Once patient symptoms continue to improve,
he was then discharged home with instructions to follow-up with all his physicians outpatient.
Discharge Plan
-
Patient Disposition: Home (Routine Discharge)
Discharge Diagnosis/Procedures: Symptomatic anemia with heme positive stool
Pancytopenia likely secondary to cirrhosis
Lymphedema
Esophageal ulcer
Esophageal varices
Condition: Fair
Diet: As tolerated
Activity: As tolerated
Driving Restrictions: As prior to admission
Bathing Restrictions: None
Referrals:
Best Ray DO [Family Provider, Family Practice] - in less than 1 week
Tyler Lamar MD [Non-Admitting Privileges, Internal Medicine]
Referral Note: follow up with Dr. Lamar from hepatology as scheduled in February
Prescriptions:
New
miconazole nitrate [Miconazorb AF] 2 % Powder
1 applic topical BID Qty: 85 0RF
Continued
oxycodone 15 MG tablet
15 mg PO QID
pravastatin 20 mg Tablet
20 mg PO DAILY Qty: 0
Patient Comments:
no pharmacy fills
oxycodone [OxyContin] 15 MG tablet,oral only,ext.rel.12 hr
20 mg PO Q12
sennosides [senna] 8.6 mg Tablet
17.2 mg PO DAILY
cyanocobalamin (vitamin B-12) 1,000 mcg Tablet
1,000 mcg PO DAILY
carvedilol 3.125 mg Tablet
3.125 mg PO BID
pantoprazole 40 mg Tablet,Delayed Release (Dr/Ec)
40 mg PO BID
folic acid 1 mg Tablet
1 mg PO DAILY
ergocalciferol (vitamin D2) [Vitamin D2] 1,250 mcg (50,000 unit) Capsule
1,250 mcg PO SA
Trijardy XR 12.5-2.5-1,000 mg Tablet, Ir - Er, Biphasic 24hr
1 tab PO BID
polyethylene glycol 3350 17 gram Powder In Packet
17 g PO DAILY Qty: 0 0RF
guaifenesin 600 mg tablet extended release 12hr
600 mg PO DAILY
acetaminophen 650 mg Tablet Extended Release
1,300 mg PO [id number] PRN (Reason: mild pain)
Discharge Orders:
Discharge Patient (As Directed); Ordered 03/05/25
Ordered By: Woodrow Manuel
Discharge Date and Time
Discharge Date/Time: 03/05/25 15:45
Print Language: ARMENIAN
[2025-03-05] MEDS: STERILE WATER FOR INJECTION 10 ML IV (11:46)
[2025-03-05] MEDS: ROCEPHIN 1000 MG IV (11:46)
[2025-03-05] MEDS: TYLENOL 650 MG PO (12:38)
--- NOTE | 2025-03-05 14:37 | CM ---
MD entered order for discharge.
Spoke with patient in room He requested [facility] . Referral placed in care port.
Dht Judi to drive him home .
IMM reviewed and signed on chart
PLAN Home with [facility]
== END 2025-03-05 15:45 | disposition home health service (06) | DRG 378 ==
LOC: 3 WEST ACU 12:29
PROVIDERS: Internal Medicine Gastroenterology; ADMITTING PHYSICIAN Internal Medicine; CONSULT PHYSICIAN Internal Medicine; EMERGENCY PHYSICIAN Student in an Organized Health Care Education/Training Program; FAMILY PHYSICIAN Family Medicine Adult Medicine
PROC: 0W3P8ZZ Control Bleeding in Gastrointestinal Tract, Via Natural or Artificial Opening Endoscopic (ICD-10-PCS; 2025-03-04)
PROC: 30243N1 Transfusion of Nonautologous Red Blood Cells into Central Vein, Percutaneous Approach (ICD-10-PCS; 2025-03-04)
DX: K31.811 Angiodysplasia of stomach and duodenum with bleeding (principal); D61.818 Other pancytopenia; F11.20 Opioid dependence, uncomplicated; K76.6 Portal hypertension; K22.10 Ulcer of esophagus without bleeding; D50.9 Iron deficiency anemia, unspecified; I85.10 Secondary esophageal varices without bleeding; K74.60 Unspecified cirrhosis of liver; K31.89 Other diseases of stomach and duodenum; R49.0 Dysphonia; E78.00 Pure hypercholesterolemia, unspecified; I25.10 Atherosclerotic heart disease of native coronary artery without angina pectoris; E88.09 Other disorders of plasma-protein metabolism, not elsewhere classified; I89.0 Lymphedema, not elsewhere classified; K29.80 Duodenitis without bleeding; K42.9 Umbilical hernia without obstruction or gangrene; K80.20 Calculus of gallbladder without cholecystitis without obstruction; E11.40 Type 2 diabetes mellitus with diabetic neuropathy, unspecified; K59.03 Drug induced constipation; T40.605A Adverse effect of unspecified narcotics, initial encounter; G89.29 Other chronic pain; M54.9 Dorsalgia, unspecified; Z85.01 Personal history of malignant neoplasm of esophagus; Z87.891 Personal history of nicotine dependence; Z79.899 Other long term (current) drug therapy; Z92.21 Personal history of antineoplastic chemotherapy; Z92.3 Personal history of irradiation; Z85.21 Personal history of malignant neoplasm of larynx
CPT/HCPCS: 80048; 80053; 82728; 82962; 83540; 83550; 85014; 85018; 85025; 85610; 85730; 86850; 86900; 86901; 86920; 96374; 96375; 99291; J2354; P9016

== ENCOUNTER 2025-04-01 22:03 | Inpatient (IN) | payer MEDICARE, OTHER, SELFPAY ==
[2025-04-01] VITALS (9 sets, daily range): BP systolic 92–118; BP diastolic 42–59; BMI 25.2
[2025-04-01 19:18] LABS: Hematocrit 21.1 % (39.0-52.0); Hemoglobin 6.7 g/dL (13.0-18.0); Mean Corp Hgb Conc. 31.8 g/dL (33.0-37.0); Mean Corpuscular Volume 92.5 fL (80.0-94.0); Red Cell Dist. Width 16.7 % (11.5-14.5)
[2025-04-01 19:23] LABS: Nucleated Red Blood Cells % 0 % (-); Platelet Count 71 10^3/uL (130-400)
[2025-04-01 19:27] LABS: ALT (SGPT) 20 U/L (0-50); AST (SGOT) 29 U/L (17-59); Albumin 3.5 g/dl (3.5-5.0); Alkaline Phosphatase 97 U/L (38-126); Blood Urea Nitrogen 24 mg/dl (9-20); Calcium 8.3 mg/dl (8.4-10.2); Carbon Dioxide 29 mmol/L (22-30); Chloride 104 mmol/L (98-107); Glucose 162 mg/dl (70-99); Potassium 4.7 mmol/L (3.5-5.1); Sodium 136 mmol/L (135-145); Total Protein 6.5 g/dl (6.3-8.2); eGFR > 60.00
--- NOTE | 2025-04-01 20:10 | ED.GENMED ---
History of Present Illness
General
Chief Complaint: Rectal Bleeding
Time Seen by Provider: 04/01/25 19:53
History of Present Illness
History of Present Illness:
Patient is a 69-year-old male with a history of cirrhosis and portal hypertension with portal gastropathy, esophageal varices, esophageal ulcer who presents to the emergency department with dark stools and severe fatigue. Was admitted approximately
1 month ago with an upper GI bleed. He had an endoscopy blood transfusion. He had a healing esophageal ulcer, portal hypertensive gastropathy and gastric antral vascular ectasia. Notes over the past week his stools have become dark again
Past History
Past History
ED Past Medical History: CAD, GERD, HTN, Hypercholesterolemia, NIDDM and Other (Chronic back pain, chronic neck pain)
ED Past Surgical History: Cardiac (Stents) and Tonsilectomy
Social History
Tobacco: Former smoker
Alcohol: None
Drug: None
Phy Exam
Physical Exam
Physical Exam:
GENERAL APPEARANCE: Pale appearing, in no distress
EYES lids/conjunctiva normal
EARS/NOSE/THROAT Mucous membranes moist, uvula midline without oral pharyngeal erythema, exudate or swelling
HEAD/NECK normocephalic atraumatic, neck is supple.
RESPIRATORY respiratory effort normal, speaks in full sentences, no accessory muscle use. Lungs clear to auscultation without rhonchi, wheezes, rales
CARDIAC Regular rate and rhythm, no edema.
ABDOMINAL Soft, ND/NT. rectal exam with dark brown strongly heme positive stool
MUSCLES/EXTREMITIES No abnormal range of motion, no swelling.
SKIN Warm, pink and dry. No rashes
NEUROLOGICAL Speech is clear and appropriate. Normal level of consciousness. 5/5 strength in all extremities.
PSYCH Normal mood and affect. Judgement/competence is appropriate
Course
Orders/Labs/Results
Orders:
Orders
04/01/25 19:05
Type+Screen Urgent
Complete Blood Count/With Diff Urgent
Comprehensive Metabolic Panel Urgent
04/01/25 19:55
* Blood Bank Products Routine
Blood Bank Products: *Packed RBC Leuko (PRBC's
Quantity: 2
Transfuse Today: No
Is product needed for scheduled surgery?: Yes
Expected Surgery Date: tomorrow
Reason: Other
Other reason: scheduled bladder cancer surgery
CefTRIAXone [Rocephin] 1,000 mg IV NOW STA
Octreotide [Sandostatin] 50 mcg IV NOW STA
Pantoprazole 80 mg/100 ml Nss [Protonix] 80 mg in 100 ml IV NOW
Pantoprazole [Protonix IV] 80 mg IV NOW STA
04/01/25 20:14
Lipase Urgent
PTT Urgent
Prothrombin Time Urgent
04/01/25 20:24
* Blood Bank Products Urgent
Blood Bank Products: *Packed RBC Leuko (PRBC's
Quantity: 2
Transfuse Today: Yes
Reason: Anemia
Other reason: GI bleed
04/01/25 20:30
Octreotide Acetate [Sandostatin] 500 mcg 0.9% Sodium Chloride 250 ml [Nss] 249 ml IV Q10H
Abnormal Lab Results
04/01/25
19:05
WBC 4.0 L 10^3/uL
(4.8-10.8)
RBC 2.28 L 10^6/uL
(4.70-6.10)
Hgb 6.7 L* g/dL
(13.0-18.0)
Hct 21.1 L %
(39.0-52.0)
MCHC 31.8 L g/dL
(33.0-37.0)
RDW 16.7 H %
(11.5-14.5)
Plt Count 71 L 10^3/uL
(130-400)
Absolute Lymphs (auto) 0.5 L 10^3/uL
(1.2-3.4)
Lymphocytes % 12.9 L %
(20.5-51.1)
Monocytes % 11.4 H %
(1.7-9.3)
BUN 24 H mg/dl
(9-20)
Glucose 162 H mg/dl
(70-99)
Calcium 8.3 L mg/dl
(8.4-10.2)
Crossmatch IS Only See Detail
04/01/25 19:05
04/01/25 19:05
Vital Signs
Initial and Last Documented VS:
Initial Vital Signs
Temp Pulse Resp BP Pulse Ox
98.5 F 79 16 118/59 99
04/01/25 18:53 04/01/25 18:53 04/01/25 18:53 04/01/25 18:53 04/01/25 18:53
Last Documented Vital Signs
Temp Pulse Resp BP Pulse Ox
98.5 F 79 16 118/59 99
04/01/25 18:53 04/01/25 18:53 04/01/25 18:53 04/01/25 18:53 04/01/25 20:10
*Pulse Oximetry
SaO2: 99
Oxygen Mode of Delivery: Room air
Patient hypoxic: no
*Critical Care Note
Total Time (30-74mins, 75-104mins- exclusive of procedures): 35
ED Attending Note
ED Attending Note
ED Attending Note:
hx of cirrhosis with portal hypertension
recent admission for UGIB with healing esophageal ulcer, portal hypertensive gastropathy and grade 1 esophageal varices
had argon plasma coagulation of a vascular ectasia
he returns with dark stools x1 week
hemoglobin is 6.7 from 8.8 on on 03/05
he has dark brown, strongly heme positive stool on exam.
he is hemodynamically stable
he is not on anticoagulation
I started him in protonix drip, octreotide drip, given dose of Ceftriaxone. Ordered for 2u pRBCs
will need admission for upper gi bleed. Likely another endoscopy
-
Portions of this chart may have been created with voice recognition software.� Occasional wrong word or��sound alike� substitutions may have occurred due to the inherent limitations of voice recognition software.
Discharge Plan
Departure
Patient Disposition: Admit
Date of Disposition: 04/01/25
Time of Disposition: 20:55
Presentation/result/management discussed w/ accepting MD/DO: Hospitalist
Discharge Problem:
Acute upper gastrointestinal bleeding, Acute blood loss anemia
Prescriptions:
No Action
oxycodone 15 MG tablet
15 mg PO QID
pravastatin 20 mg Tablet
20 mg PO DAILY Qty: 0
Patient Comments:
no pharmacy fills
oxycodone [OxyContin] 15 MG tablet,oral only,ext.rel.12 hr
20 mg PO Q12
sennosides [senna] 8.6 mg Tablet
17.2 mg PO DAILY
cyanocobalamin (vitamin B-12) 1,000 mcg Tablet
1,000 mcg PO DAILY
carvedilol 3.125 mg Tablet
3.125 mg PO BID
pantoprazole 40 mg Tablet,Delayed Release (Dr/Ec)
40 mg PO BID
folic acid 1 mg Tablet
1 mg PO DAILY
ergocalciferol (vitamin D2) [Vitamin D2] 1,250 mcg (50,000 unit) Capsule
1,250 mcg PO SA
Trijardy XR 12.5-2.5-1,000 mg Tablet, Ir - Er, Biphasic 24hr
1 tab PO BID
polyethylene glycol 3350 17 gram Powder In Packet
17 g PO DAILY Qty: 0 0RF
guaifenesin 600 mg tablet extended release 12hr
600 mg PO DAILY
acetaminophen 650 mg Tablet Extended Release
1,300 mg PO [id number] PRN (Reason: mild pain)
miconazole nitrate [Miconazorb AF] 2 % Powder
1 applic topical BID Qty: 85 0RF
Referrals:
Best Ray DO [Family Provider, Family Practice]
Interventions
Interventions:
*Risk Screen - Suicide Last Done: 04/01/25 18:57
*Neglect/Abuse Screening Last Done: 04/01/25 18:57
Discharge Date and Time
Print Language: ARMENIAN
[2025-04-01] MEDS: PROTONIX IV 80 MG IV (20:41)
[2025-04-01] MEDS: ROCEPHIN 1000 MG IV (20:41)
[2025-04-01] MEDS: SANDOSTATIN 50 MCG IV (20:47)
[2025-04-01] MEDS: PROTONIX 100 IV (20:48)
[2025-04-01 20:50] LABS: INR 1.13; PT 14.8 Sec (11.4-14.6)
[2025-04-01 21:00] LABS: APTT 31.2 Sec (23.4-35.0)
[2025-04-01 21:02] LABS: Lipase 42 U/L (23-300)
[2025-04-01] MEDS: SANDOSTATIN 250 MCG IV (21:17)
--- NOTE | 2025-04-01 21:20 | HPS.HSE ---
Family Physician
-
Family Physician: Best Ray
Chief Complaint
-
dark brown stool
History of Present Illness
69-year-old male with a history of cirrhosis and portal hypertension with portal gastropathy, esophageal varices, esophageal ulcer who presents to the emergency department with dark brown stools for past 7 days. he is sob and lightheaded. denied
fatigue and weakness. denied ZIMMER< dizzy or syncope.denied fever, chills,chest pain. stated some abdominal discomfort. he is constipated, but able to move bowels with miralax. denied dysuria or hematuria.
upon arrival hgb of 6.7l. transfusing with 2 units of blood. Patient received a dose of ceftriaxone, octreotide, Protonix in ER. Admitted for further manage
Medical History
Past Medical History
Past Medical History: Reports Other
Additional Past Medical History:
Esophagitis ulcer
Duodenal ulcer
Esophageal varices
Portal hypertension
Diabetes
Hypertension
Past Surgical History: Reports Other
Additional Past Surgical History:
Tonsillectomy
Social History
Tobacco: Former Smoker
Alcohol: None
Drug: None
Personal: Partner
Living: With Family
Family History
Family History: Not pertinent
Allergies / Home Medications
Allergies reflects when Allergies were last updated in [facility].
Home Medications with original date entered in [facility]
Allergy/Medication List:
Allergies
Allergy/AdvReac Type Severity Reaction Status Date / Time
Penicillins Allergy CHILDHOOD Verified 03/03/25 06:48
Home Medications
oxycodone 15 mg tablet 15 mg PO QID Pain 01/29/20
oxycodone 15 mg tablet,crush resistant,extended release 12 hr (OxyContin) 20 mg PO Q12 Pain 01/29/20
pravastatin 20 mg tablet 20 mg PO DAILY High Cholesterol ##0 01/29/20
carvedilol 3.125 mg tablet 3.125 mg PO BID Blood Pressure 01/12/25
cyanocobalamin (vitamin B-12) 1,000 mcg tablet 1,000 mcg PO DAILY Supplement 01/12/25
empagliflozin 12.5 mg-linaglipt 2.5 mg-metform ER 1,000 mg tablet,24hr (Trijardy XR) 1 tab PO BID Diabetes 01/12/25
ergocalciferol (vitamin D2) 1,250 mcg (50,000 unit) capsule (Vitamin D2) 1,250 mcg PO SA Supplement 01/12/25
folic acid 1 mg tablet 1 mg PO DAILY Supplement 01/12/25
pantoprazole 40 mg tablet,delayed release 40 mg PO BID Gastrointestinal Issue 01/12/25
sennosides 8.6 mg tablet (senna) 17.2 mg PO DAILY Constipation 01/12/25
polyethylene glycol 3350 17 gram oral powder packet 17 g PO DAILY #0 ea 01/15/25
guaifenesin 600 mg tablet, extended release 12 hr 600 mg PO DAILY 02/12/25
acetaminophen 650 mg tablet,extended release 1,300 mg PO [id number] PRN mild pain 03/03/25
miconazole nitrate 2 % topical powder (Miconazorb AF) 1 applic topical BID #85 grams 03/05/25
Review of Systems
-
Constitutional: Reports No Symptoms
EENT: Reports No Symptoms
Respiratory: Reports No Symptoms
Cardiac: Reports No Symptoms
Abdomen/GI: Reports Abdominal Pain and Other (Dark stools)
: Reports No Symptoms
Musculoskeletal: Reports No Symptoms
Skin: Reports No Symptoms
Neurological: Reports No Symptoms
Endocrine: Reports No Symptoms
Hematologic/Lymphatic: Reports No Symptoms
Psych: Reports No Symptoms
Physical Exam
Vital Signs
Vital Signs
Temp Pulse Resp BP Pulse Ox
98.5 F 79 16 118/59 99
04/01/25 18:53 04/01/25 18:53 04/01/25 18:53 04/01/25 18:53 04/01/25 20:10
Physical Exam
General: Well Developed, Well Nourished and No Apparent Distress
HEENT: NormoCephalic, Moist mucous membranes and Atraumatic
Respiratory: Clear
Cardiac: S1/S2 and Regular Rhythm; No Murmur or Rub
GI: Soft, Non Tender, Non Distended and Normal Bowel Sounds; No Organomegaly
Rectal: Deferred by Provider
Musculoskeletal: No Clubbing, No Cyanosis and No Edema
Skin: No Rash
Neuro: AO x 3 and Nonfocal/grossly intact
Psych: Calm
Laboratory Results
-
04/01/25 19:05
04/01/25 19:05
Laboratory Results
PT 14.8 Sec (11.4-14.6) H 04/01/25 20:14
INR 1.13 04/01/25 20:14
APTT 31.2 Sec (23.4-35.0) 04/01/25 20:14
Total Bilirubin 0.6 mg/dl (0.2-1.3) 04/01/25 19:05
AST 29 U/L (17-59) 04/01/25 19:05
ALT 20 U/L (0-50) 04/01/25 19:05
Alkaline Phosphatase 97 U/L (38-126) 04/01/25 19:05
Lipase 42 U/L (23-300) 04/01/25 20:14
Data Reviewed
-
Lab Data: Labs Reviewed by me
Impression/Plan
-
# Acute blood loss anemia secondary to GI bleed
# History of cirrhosis with variceal banding
# Portal gastropathy
- Hemoglobin 6.7
- Heme positive stool
- IV Protonix and octreotide drip
- Dose of ceftriaxone
- 1 units of PRBCs
- Keep patient n.p.o after midnight, clear liquid diet for now
- GI consulted
s/p EGD 03/04 with healing esophageal ulcer with no stigmata of recent bleeding, portal hypertensive gastropathy, gastric antral vascular ectasia. Mild duodenitis. Esophageal varices
#pancytopenia likely secondary to cirrhosis
-Continue to monitor
#DM type 2 with neuropathy
Insulin SS and accuchecks
-Trijardy continued
#Hoarseness, chronic s/p esophageal CA s/p resection
#Chronic LE lymphedema
#Chronic back pain with chronic opioid dependence
#HLD
-statin continued
#essential HTN
-coreg continued with hold parameter
DVT ppx SCDs
Full code
--- NOTE | 2025-04-01 21:30 | W.PN.UPDATE ---
Update Note
Progress Note Update
This is an addendum to H&P written by BRINE MIXER OPERATOR Erica Ray
I saw and examined the patient.
The BRINE MIXER OPERATOR's note was reviewed and I agree with the note.
Comment:
Mr. Teddy Padilla is a 69 yo man with hx esophageal cancer s/p resection, cirrhosis with esophageal varices, DM, chronic LE lymphedema, chronic opiate dependence, recent admission 03/03-03/05 for UGIB (s/p EGD with grade I esophageal varices, gastric
antral vascular ectasia s/p APC) represents to the ER with dark stools and lightheadedness.
Triage vitals stable. Labs with Hg 6.7, PLT 71, normal renal function. On exam patient is sitting up, AAO x 3, voice hoarse (chronic); lungs clear; b/l LE lymphedema, no abdominal pain.
Hg was 8.8 03/05/25. He was started on IV Ceftriaxone, Octreotide and Protonix gtt in the ER.
UGIB, Melena
Acute on chronic blood loss anemia
Hx Cirrhosis with grade I esophageal varices, portal hypertensive gastropathy, gastric antral vascular ectasia
Hx Esophageal Ulcer
-admit to telemetry
-ordered for 1 unit PRBC in the ER
-trend H/H
-IV Octreotide gtt, IV protonix gtt, IV Ceftriaxone given cirrhosis history
-GI consulted
-clears, NPO after MN
Chronic LE Lymphedema
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
HLD
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
Chronic hoarseness; hx esophageal cancer s/p resection
Remainder of plan per BRINE MIXER OPERATOR note
EGD 03/04/25
Impression:
- Healing Esophageal ulcer with no stigmata of recent bleeding.
- Portal hypertensive gastropathy. previously placed endoclip was
noted
- Gastric antral vascular ectasia. Treated with argon plasma
coagulation (APC).
- mild Duodenitis.
- Grade I esophageal varices.
- No specimens collected.
76 minutes spent on patient care
[2025-04-01 22:42] LABS: Iron 33 ug/dl (49-181)
[2025-04-01 22:52] LABS: Total Iron Binding Capacity 275 ug/dl (261-462)
[2025-04-02] VITALS (11 sets, daily range): BP systolic 89–115; BP diastolic 39–56; BMI 25.2
[2025-04-02 00:53] LABS: Ferritin 33.5 ng/ml (17.9-464.0)
[2025-04-02] MEDS: OXYCONTIN (CONTROLLED RELEASE) 20 MG PO ×3 (01:02→21:34)
[2025-04-02 01:24] LABS: Folate 13.9 ng/ml (2.76-20); Vitamin B12 > 1000 pg/ml (239-931)
[2025-04-02 03:25] LABS: Hematocrit 21.4 % (39.0-52.0); Hemoglobin 6.8 g/dL (13.0-18.0); Mean Corp Hgb Conc. 31.8 g/dL (33.0-37.0); Mean Corpuscular Volume 92.6 fL (80.0-94.0); Platelet Count 56 10^3/uL (130-400); Red Cell Dist. Width 16.4 % (11.5-14.5)
[2025-04-02 03:45] LABS: Blood Urea Nitrogen 21 mg/dl (9-20); Calcium 7.9 mg/dl (8.4-10.2); Carbon Dioxide 29 mmol/L (22-30); Chloride 107 mmol/L (98-107); Estimated Creatinine Clearance 75 ml/min; Glucose 101 mg/dl (70-99); Potassium 4.4 mmol/L (3.5-5.1); Sodium 140 mmol/L (135-145); eGFR > 60.00
--- NOTE | 2025-04-02 04:40 | TRANSFER ---
Pt transferred to 3W from ed via stretcher. Pt ambulated to recliner in room from stretcher with rolling walker. Pt states he uses rolling walker at baseline. AAOx3, Pt significant other at bedside, oriented to room, call correa within reach, plan of
care ongoing.
--- NOTE | 2025-04-02 04:41 | PTCARENOTE ---
Pt and significant other extremely agitated and demanding private room. This RN explained there are no current open private rooms. Pt then demanded to speak with a estimator and drafter supervisor who stated the same thing. Pt and S/O were informed they would be put on
board for transfer to private if and when one became available.
[2025-04-02 06:08] LABS: Glucose - Point of Care 135 mg/dl (70-99)
--- NOTE | 2025-04-02 06:14 | PTCARENOTE ---
Pt refused 2nd large bore IV in ED despite physician order so unable to run both ordered IV medications along with ordered PRBC. IV protonix held between PRBC transfusions.
--- NOTE | 2025-04-02 06:31 | CON.GI ---
Addendum entered and electronically signed by LUI Ames 04/02/25 10:36:
for repeat CBC in AM to see if platelets needed prior to procedure
Addendum entered and electronically signed by Corey Roberts MD 04/02/25 10:29:
I saw and examined the patient.
The BREAKFAST SUPERVISOR or PA's note was reviewed and I agree with the note.
Comment:
Pt is a 69 y/o man with a hx of laryngeal ca, cirrhosis but unclear etiology with a hx of GAVE with prior APC, CAD off plavix who has had prior GI procedures, with dark stool, heme pos and drop in hgb. issues with constipation and evacuation.
abd: soft
impression
GIB
anemia
constipation
plan:
enema
EGD/Colon with generous prep
PPI and octreotide
follow hgb
hepatology f/u; will determine further imaging after acute event
Original Note:
Consultation
-
Date/Time Consultation Requested: 04/01/25 2350
Date/Time Consultation Performed: 04/02/25 0900
Requesting Provider: LUI Bernal
Performing Provider: LUI Kimball, Corey Roberts MD
Reason for Consultation: anemia
Medical History
Chief Complaint / HPI
Chief Complaint: dizziness, weakness, GI bleeding
History of Present Illness:
Pt is a 69yo with hx laryngeal CA with prior chemo radiation and biopsy with follow at [facility] , cirrhosis with ? hep C exposure but neg hep C ab testing vs MASH vs other, EV with recent banding at [facility] and [facility] with prior
APC therapy, portal HTN, splenomegaly, prior diverticulitis, NIDDM, CAD with prior stenting and prior Plavix therapy(off since September), HTN, hypercholesterolemia, anemia with iron deficiency follow with Dr. Claudio Banda, spondylosis of cervical
spine. He has had chronic anemia and thrombocytopenia with several admissions to [facility] and with sespsi with hypoxemia but also recurrent anemia and bleeding with multiple GI procedures as noted. He had recent follow up with Dr. Lamar
from [facility] and due follow up again in May. He has been followed closely with hematology with for hbg check but now noted with recurrent drop and dark stools and present for evaluation. In ER noted brown strongly heme + stool. On
admission WBC4, hbg 6,7, platelets 71,000, INR 1.13, with normal LFT's with MELD 8 on admission.
In review with patient he began with liver issues several months ago. He is noted with bleeding but also lower ext edema but denies ascites or encephalopathy. He admit to minimal dysphagia which is chronic with hx laryngeal Ca worse in
AM. He also admits to some nausea without vomiting about 1 time per month and constipation with narcotic use with Miralax use as needed. He admits to chronic back pain on chronic narcotics He otherwise denies odynophagia, GERD, or red blood in
stools. Currently off anticoagulation and no NSAID.
EGD--10/12/24- Volchonok- [facility]-grade II EV eradicated/banded, multiple non bleeding angioectasia in stomach with APC, gastritis, normal duodenum
EGD--12/19/24- Dr Vinod Jackson, [place]- varix distal esophagus with red whale sign banded, GAVE with bleeding, s/p APC, normal duodenal bulb
colonoscopy about 8 years ago due for repeat
EGD- 02/13/25- Yesica Saez MD grade II EV no high risk stigmata, banded x 3, eradicated portal HTN gastropathy with active bleeding, s/p APC
02/14/25- US abdomen with doppler Normal ultrasound evaluation of the abdominal vasculature.
Limited visualization of the liver, relatively small in size, with fibrofatty parenchymal changes.Splenomegaly.
Cholelithiasis without sonographic features of acute cholecystitis. 7 mm common bile duct, considered top normal in size.
EGD- 03/04/25- [facility]- - Healing Esophageal ulcer with no stigmata of recent bleeding. - Portal hypertensive gastropathy. previously placed endoclip was note Gastric antral vascular ectasia. Treated with argon plasma coagulation (APC)- mild
Duodenitis. - Grade I esophageal varices. No specimens collected.
Past Medical History
Past Medical History: CAD (prior plavix therapy), Cancer (Laryngeal CA s/p surgery and chemo), HTN, Hypercholesterolemia, NIDDM and Other (MASH cirrhosis with ? hep C exposure but neg testing with varices and prior GI bleed-EV w/banding,GAVE with
prior APC, portal HTN gastropathy, splenomegaly, anemia with iron deficiency, spondylosis of cervical spine with chronic neck and back pain,, cholelithiasis,diverticulitis, umbilical hernia )
Past Surgical History: Cardiac (prior stenting ) and Other (larynx surgery )
Social History
Tobacco: Former Smoker (quit 2015)
Alcohol: None
Drug: Marijuana (20 years ago )
Personal: (common law )
Living: With Family
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
Family History
Family History: Other (no family hx liver issues )
Allergies / Home Medications
Allergy/AdvReac Type Severity Reaction Status Date / Time
Penicillins Allergy CHILDHOOD Verified 03/03/25 06:48
�Medication �Instructions �Recorded
oxycodone 15 mg tablet,crush 20 mg PO Q12 Pain 01/29/20
resistant,extended release 12 hr
(OxyContin)
pravastatin 20 mg tablet 20 mg PO DAILY High Cholesterol ##0 01/29/20
carvedilol 3.125 mg tablet 3.125 mg PO BID Blood Pressure 01/12/25
cyanocobalamin (vitamin B-12) 1,000 mcg PO DAILY Supplement 01/12/25
1,000 mcg tablet
empagliflozin 12.5 mg-linaglipt 1 tab PO BID Diabetes 01/12/25
2.5 mg-metform ER 1,000 mg
tablet,24hr (Trijardy XR)
ergocalciferol (vitamin D2) 1,250 1,250 mcg PO SA Supplement 01/12/25
mcg (50,000 unit) capsule (Vitamin
D2)
folic acid 1 mg tablet 1 mg PO DAILY Supplement 01/12/25
pantoprazole 40 mg tablet,delayed 40 mg PO BID Gastrointestinal Issue 01/12/25
release
sennosides 8.6 mg tablet (senna) 17.2 mg PO DAILY Constipation 01/12/25
polyethylene glycol 3350 17 gram 17 g PO DAILY #0 ea 01/15/25
oral powder packet
guaifenesin 600 mg tablet, 600 mg PO DAILY 02/12/25
extended release 12 hr
acetaminophen 650 mg 1,300 mg PO S54METE PRN mild pain 03/03/25
tablet,extended release
miconazole nitrate 2 % topical 1 applic topical BID #85 grams 03/05/25
powder (Miconazorb AF)
Review of Systems
-
History Source: Patient
Constitutional: Reports Weight Loss and Chills
EENT: Reports No Symptoms
Respiratory: Reports Trouble Breathing
Cardiac: Reports No Symptoms
Abdomen/GI: Reports Nausea, Constipated and Other (dark stools)
: Reports No Symptoms
Musculoskeletal: Reports No Symptoms and Edema
Skin: Reports No Symptoms
Neurological: Reports Weakness
Endocrine: Reports No Symptoms
Hematologic/Lymphatic: Reports Bleeding
Vital Signs
Temp Pulse Resp BP Pulse Ox
98.7 F 71 16 89/39 96
04/02/25 04:46 04/02/25 04:46 04/02/25 04:46 04/02/25 04:46 04/02/25 04:46
Physical Exam
Exam
General: Other (pale - chronic ill appearing )
HEENT: Normocephalic and Anicteric
Respiratory: Clear
Cardiac: Regular Rhythm and Peripheral Edema
GI: Soft, Non Tender and Distended (minimal )
Musculoskeletal: No Clubbing and No Cyanosis
Skin: Warm and Dry
Neuro: Awake, Alert and AO x 3
Psych: Calm
Results
WBC 2.5 10^3/uL (4.8-10.8) L 04/02/25 03:09
Hgb 6.8 g/dL (13.0-18.0) L* 04/02/25 03:09
Hgb Cancelled 04/02/25 03:09
Hct 21.4 % (39.0-52.0) L 04/02/25 03:09
Hct Cancelled 04/02/25 03:09
MCV 92.6 fL (80.0-94.0) 04/02/25 03:09
Plt Count 56 10^3/uL (130-400) L D 04/02/25 03:09
Absolute Neuts (auto) 2.9 10^3/uL (1.4-6.5) 04/01/25 19:05
PT 14.8 Sec (11.4-14.6) H 04/01/25 20:14
INR 1.13 04/01/25 20:14
APTT 31.2 Sec (23.4-35.0) 04/01/25 20:14
Sodium 140 mmol/L (135-145) 04/02/25 03:09
Potassium 4.4 mmol/L (3.5-5.1) 04/02/25 03:09
Chloride 107 mmol/L (98-107) 04/02/25 03:09
Carbon Dioxide 29 mmol/L (22-30) 04/02/25 03:09
BUN 21 mg/dl (9-20) H 04/02/25 03:09
Creatinine 0.9 mg/dL (0.7-1.3) 04/02/25 03:09
Calcium 7.9 mg/dl (8.4-10.2) L 04/02/25 03:09
Total Bilirubin 0.6 mg/dl (0.2-1.3) 04/01/25 19:05
AST 29 U/L (17-59) 04/01/25 19:05
ALT 20 U/L (0-50) 04/01/25 19:05
Alkaline Phosphatase 97 U/L (38-126) 04/01/25 19:05
Lipase 42 U/L (23-300) 04/01/25 20:14
Diagnostic Image Results:
EGD--10/12/24- [place]- [place]-grade II EV eradicated/banded, multiple non bleeding angioectasia in stomach with APC, gastritis, normal duodenum
EGD--12/19/24- Dr Vinod Jackson, [place]- varix distal esophagus with red whale sign banded, GAVE with bleeding, s/p APC, normal duodenal bulb
colonoscopy about 8 years ago due for repeat
EGD- 02/13/25- Yesica Saez MD grade II EV no high risk stigmata, banded x 3, eradicated portal HTN gastropathy with active bleeding, s/p APC
02/14/25- US abdomen with doppler Normal ultrasound evaluation of the abdominal vasculature.
Limited visualization of the liver, relatively small in size, with fibrofatty parenchymal changes.Splenomegaly.
Cholelithiasis without sonographic features of acute cholecystitis. 7 mm common bile duct, considered top normal in size.
EGD- 03/04/25- [facility]- - Healing Esophageal ulcer with no stigmata of recent bleeding. - Portal hypertensive gastropathy. previously placed endoclip was note Gastric antral vascular ectasia. Treated with argon plasma coagulation (APC)- mild
Duodenitis. - Grade I esophageal varices. No specimens collected.
Assessment / Plan
-
Pt is a 69yo with hx laryngeal CA with prior chemo radiation and biopsy with follow at [facility] , cirrhosis with ? hep C exposure but neg [facility], EV with recent banding at [facility] and [place] , GAVE with prior
APC therapy, portal HTN, splenomegaly, prior diverticulitis, NIDDM, CAD with prior stenting and prior Plavix therapy(off since September), HTN, hypercholesterolemia, anemia with iron deficiency follow with Dr. Claudio Banda, spondylosis of cervical
spine. He has had chronic anemia and thrombocytopenia with several admissions to [facility] and with sespsi with hypoxemia but also recurrent anemia and bleeding with multiple GI procedures as noted. He had recent follow up with Dr. Lamar
from [facility] and due follow up again in May. He has been followed closely with hematology with for hbg check but now noted with recurrent drop and dark stools and present for evaluation. In ER noted brown strongly heme + stool. On
admission WBC4, hbg 6,7, platelets 71,000, INR 1.13, with normal LFT's with MELD 8 on admission.
EGD--10/12/24- Zach- [facility] [place]-grade II EV eradicated/banded, multiple non bleeding angioectasia in stomach with APC, gastritis, normal duodenum
EGD--12/19/24- Dr Vinod Jackson, [place]- varix distal esophagus with red whale sign banded, GAVE with bleeding, s/p APC, normal duodenal bulb
colonoscopy about 8 years ago due for repeat
EGD- 02/13/25- Yesica Saez MD grade II EV no high risk stigmata, banded x 3, eradicated portal HTN gastropathy with active bleeding, s/p APC
02/14/25- US abdomen with doppler Normal ultrasound evaluation of the abdominal vasculature.
Limited visualization of the liver, relatively small in size, with fibrofatty parenchymal changes.Splenomegaly.
Cholelithiasis without sonographic features of acute cholecystitis. 7 mm common bile duct, considered top normal in size.
EGD- 03/04/25- [facility]- - Healing Esophageal ulcer with no stigmata of recent bleeding. - Portal hypertensive gastropathy. previously placed endoclip was note Gastric antral vascular ectasia. Treated with argon plasma coagulation (APC)- mild
Duodenitis. - Grade I esophageal varices. No specimens collected.
Impression:
-symptomatic anemia with prior iron deficiency acute blood loss--prior iron studies c/w chronic disease
-dark heme
-hx cirrhosis possible mash vs other prior hep C exposure with neg testing in January
-recent multiple EGD's with EV with banding, GAVE with APC, portal gastropathy, esophageal ulcer
- hypoxia/bronchiolitis in december
- pancytopenia
-hypoalbuminemia
-constipation -narcotic induced
-LE edema
other medical issues:
-chronic umbilical hernia
-laryngeal CA 2020 with prior Chemo/XRT
-splenomegaly
-prior diverticulitis
- NIDDM
-CAD with prior stenting and prior Plavix therapy
- HTN
- hypercholesterolemia
-spondylosis of cervical spine with chronic pain
PLAN:
etiology of dark stools and drop in hbg related to recurrent GI bleeding- portal HTN gastropathy, GAVE, EV, ulceration with hx banding, lower GI or SB source vs other-- likely slow bleed over time--
may also be multi factorial with pancytopenia
etiology of cirrhosis- MASH, vs other -no hx ETOH use - no formal work up reviewed- - Pt had follow up with Dr. Lamar in February and due to return in a few months -- I did also review with patient with stable MELD other etiology for portal HTN
considered
HCC screening- add AFP, Pt due OP CT with Dr. Lamar(per chart-- pt unaware of testing), USabd doppler as noted 02/14/25 - limited liver visualization fibrofatty changes of liver -- will review with Dr. Roberts for further imaging
currently on octeotide and PPI Gtt-- will transition to protonix BID as pt declines further IV access
plan for repeat EGD and colonoscopy 04/03 -- reviewed with patient will need to be clear to proceed with chronic constipation pt agreeable to proceed
I also reviewed may need outpatient capsule pending work up
ok for clear diet-- can have clear supplement this am with medication
trend hbg and stool record
pt was on coreg prior to admission
MELD 3.0- 8 on admission cont to trend
pain control per hospitalist
careful with narcotics and liver disease monitor mental status closely
monitor for HE with cirrhosis and bleeding '
t/c echo-- pt states he did have prior echo recalls as normal -- no report reviewed
-
-
Thank you for consultation and allowing me to participate in the patient's care. Please call the affirmative action officer GI physician during the after hours with any questions or concerns.
[2025-04-02] MEDS: SANDOSTATIN 250 MCG IV ×2 (07:19→21:34)
--- NOTE | 2025-04-02 07:45 | W.PN.UPDATE ---
Update Note
Progress Note Update
~ 3:30 Critical lab:Hgb 6.8/Hct 21.4. Ordered 1 unit PRBC's to transfuse now. Repeat H&H ordered Q6H.
[2025-04-02 07:46] LABS: Glucose - Point of Care 129 mg/dl (70-99)
[2025-04-02] MEDS: FOLVITE 1 MG PO (08:00)
[2025-04-02] MEDS: VITAMIN B-12 1000 MCG PO (08:00)
[2025-04-02] MEDS: DESENEX/MITRAZOL/ZEASORB 1 APPLIC TOPICAL ×2 (08:00→21:44)
[2025-04-02] MEDS: MUCINEX 600 MG PO (08:00)
[2025-04-02] MEDS: PRAVACHOL 20 MG PO (08:03)
[2025-04-02 08:33] LABS: Glycohemoglobin (HgbA1c) 5.6 % (4.0-5.6)
--- NOTE | 2025-04-02 08:55 | VNURNOTE ---
Addendum entered by Alexa Villaseñor RN 04/04/25 12:18:
[facility] Resumption referral placed in [facility].
Original Note:
Chart reviewed. Patient is current with [facility]. Will continue to follow hospital course and DC plans.
[2025-04-02] MEDS: PROTONIX 100 IV (09:03)
[2025-04-02 09:34] LABS: Hematocrit 24.1 % (39.0-52.0); Hemoglobin 7.9 g/dL (13.0-18.0)
[2025-04-02] MEDS: MIRALAX 51 GRAMS PO (10:02)
[2025-04-02] MEDS: PROTONIX IV 40 MG IV ×2 (10:02→21:44)
[2025-04-02] MEDS: NSS (PRESERVATIVE FREE) 10 ML IV ×2 (10:02→21:45)
[2025-04-02 11:40] LABS: Glucose - Point of Care 189 mg/dl (70-99)
--- NOTE | 2025-04-02 12:15 | W.PN.HOSP.TC ---
Today's Communication/Plan
-
Monitor vital signs see plan
Continue with PPI, octreotide
Repeat hemoglobin later today
Plan for EGD plus colon tomorrow
GI following
Assessment / Plan
Assessment / Plan
General: Well Developed, Well Nourished and No Apparent Distress
HEENT: NormoCephalic, Moist mucous membranes and Atraumatic
Respiratory: Clear
Cardiac: S1/S2 and Regular Rhythm; No Murmur or Rub
GI: Soft, Non Tender, Non Distended and Normal Bowel Sounds
Musculoskeletal: No Edema
Neuro: AO x 3 and Nonfocal/grossly intact
Psych: Calm
Acute blood loss anemia secondary to GI bleed
Iron deficiency anemia
# History of cirrhosis with variceal banding
# Portal gastropathy
- Hemoglobin 6.7 on admisison; s/p 2 units prbc. now 7.9
- Heme positive stool
Continue with Protonix, octreotide
Plan for EGD possible colon 04/03
- cwceftriaxone
- GI following
Start IV iron
s/p EGD 03/04 with healing esophageal ulcer with no stigmata of recent bleeding, portal hypertensive gastropathy, gastric antral vascular ectasia. Mild duodenitis. Esophageal varices
#pancytopenia likely secondary to cirrhosis
-Continue to monitor
#DM type 2 with neuropathy
Insulin SS and accuchecks
-Trijardy continued
#Hoarseness, chronic s/p esophageal CA s/p resection
#Chronic LE lymphedema
#Chronic back pain with chronic opioid dependence
#HLD
-statin continued
#essential HTN
-coreg continued with hold parameter
DVT ppx SCDs
Full code
I spent a total of 54 minutes with the patient or on the floor. More than 50% of this time involved counseling and coordination of care.
Anticipated Discharge: > 48 hours
Subjective/Interval History
-
Date of Service: April 02, 2025
denies pain
Objective Data
-
Labs:
Laboratory Results
04/02/25 04/02/25 04/02/25
01:00 03:09 03:09
WBC 2.5 L
Hgb Cancelled 6.8 L* Cancelled
Hct Cancelled 21.4 L
Plt Count
Sodium
Potassium
Chloride
Carbon Dioxide
BUN
Creatinine
Glucose
Calcium
04/02/25 04/02/25
03:09 09:22
WBC
Hgb 7.9 L
Hct Cancelled 24.1 L
Plt Count 56 L D
Sodium 140
Potassium 4.4
Chloride 107
Carbon Dioxide 29
BUN 21 H
Creatinine 0.9
Glucose 101 H
Calcium 7.9 L
Vital Signs:
Vital Signs
Temp Pulse Resp BP Pulse Ox
98.1 F 67 17 115/51 99
04/02/25 11:00 04/02/25 11:00 04/02/25 11:00 04/02/25 11:00 04/02/25 11:00
I&O
04/01/25 04/02/25 04/03/25
06:59 06:59 06:59
Intake Total 250 / 250 250 / 250
Output Total 200 / 200
Balance 50 / 50 250 / 250
[2025-04-02] MEDS: GAVILAX 238 GM PO (14:59)
[2025-04-02] MEDS: FERRLECIT 110 MG IV (15:13)
--- NOTE | 2025-04-02 16:35 | CM ---
Addendum entered by Norma Avila 04/04/25 13:43:
Pt cleared for discharge to home today. [facility] services will resume after discharge.
Original Note:
Initial assessment completed with patient was admitted with GI bleed. He lives with his in a 1 story home plus basement, no steps to enter. 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 Pt sleeps in a
recliner. No in-home services. Drives in the community.
Plan: Home with no needs vs. [facility] (had services in the past)
PCP: Dr. Best Ray
Pharmacy: [facility] in [place]
[2025-04-02 16:39] LABS: Glucose - Point of Care 161 mg/dl (70-99)
--- NOTE | 2025-04-02 20:00 | PTCARENOTE ---
Addendum entered by Shanta Reyes RN 04/03/25 23:30:
Discussed use of bed alarm with patient as well as fall risk. Pt refusing usage of bed alarm. Education provided about using call correa for assistance with ambulation. Pt verbalizes understanding. Plan of care ongoing.
Original Note:
This RN asked pt about tap water enema that had been ordered during day shift that he refused. Pt stated he was still refusing at this point. Stated he would take his miralax bowel prep for EGD. Plan of care ongoing.
[2025-04-02 20:29] LABS: Hematocrit 25.4 % (39.0-52.0); Hemoglobin 8.2 g/dL (13.0-18.0)
[2025-04-02] MEDS: ROCEPHIN 1000 MG IV (21:44)
[2025-04-03] VITALS (9 sets, daily range): BP systolic 98–122; BP diastolic 42–63
[2025-04-03 00:16] LABS: Glucose - Point of Care 149 mg/dl (70-99)
[2025-04-03] MEDS: GAVILAX 120 GM PO (04:25)
[2025-04-03 05:43] LABS: INR 1.11; PT 14.8 Sec (11.4-14.6)
[2025-04-03 05:46] LABS: Glucose - Point of Care 139 mg/dl (70-99)
[2025-04-03 05:54] LABS: Hematocrit 24.0 % (39.0-52.0); Hemoglobin 7.8 g/dL (13.0-18.0); Mean Corp Hgb Conc. 32.5 g/dL (33.0-37.0); Mean Corpuscular Volume 92.7 fL (80.0-94.0); Platelet Count 68 10^3/uL (130-400); Red Cell Dist. Width 16.2 % (11.5-14.5)
[2025-04-03 06:01] LABS: ALT (SGPT) 18 U/L (0-50); AST (SGOT) 22 U/L (17-59); Albumin 3.5 g/dl (3.5-5.0); Alkaline Phosphatase 86 U/L (38-126); Blood Urea Nitrogen 18 mg/dl (9-20); Calcium 8.0 mg/dl (8.4-10.2); Carbon Dioxide 30 mmol/L (22-30); Chloride 106 mmol/L (98-107); Estimated Creatinine Clearance 84 ml/min; Glucose 120 mg/dl (70-99); Potassium 4.2 mmol/L (3.5-5.1); Sodium 138 mmol/L (135-145); Total Protein 6.5 g/dl (6.3-8.2); eGFR > 60.00
[2025-04-03] MEDS: ROXICODONE 15 MG PO (06:34)
--- NOTE | 2025-04-03 07:00 | PTCARENOTE ---
Pt requesting to be disconnected from Octreotide infusion to use bathroom after taking bowel prep. Educated pt about ambulating with IV pole and keeping infusion running. Pt getting increasingly agitated and raising his voice saying, 'Just
disconnect me. I don't want it.' Pt disconnected from Octreotide and ambulated to bathroom. Returned at shift change with day shift RN. Attempted to reconnect pt to infusion as he was back in the chair. Pt still refusing to be reconnected. Day shift
RN now assuming care of pt.
--- NOTE | 2025-04-03 08:10 | PTCARENOTE ---
patient refusing bed alarm despite nursing explaining to him his risk for falls and it's role of prevention, refused tap water enema for previous shift RN. He is refusing to have Sandostatin reconnected due to multiple trips to from bowel prep
for EGD and colonoscopy. transferring independently with own rollator. vss, will continue to monitor.
[2025-04-03] MEDS: VITAMIN B-12 1000 MCG PO (09:24)
[2025-04-03] MEDS: MUCINEX 600 MG PO (09:24)
[2025-04-03] MEDS: FOLVITE 1 MG PO (09:24)
[2025-04-03] MEDS: PROTONIX IV 40 MG IV ×2 (09:25→19:57)
[2025-04-03] MEDS: NSS (PRESERVATIVE FREE) 10 ML IV ×2 (09:25→19:57)
[2025-04-03] MEDS: PRAVACHOL 20 MG PO (09:29)
[2025-04-03] MEDS: OXYCONTIN (CONTROLLED RELEASE) 20 MG PO ×2 (09:30→19:56)
[2025-04-03] MEDS: DESENEX/MITRAZOL/ZEASORB TOPICAL ×2 (09:34→19:56)
--- NOTE | 2025-04-03 09:48 | PTCARENOTE ---
Dr. Best Ray-pt's PCP
Dr. Lamar-liver
Dr. Edi Haile
Dr. Nguyen
Dr. [facility]
--- NOTE | 2025-04-03 10:00 | PTCARENOTE ---
Dr. Gill and Dr. Roberts aware of patient's refusal of Sandostatin, enema, bed alarm. patient continent of clear stool with brown in it. will continue to monitor.
--- NOTE | 2025-04-03 10:24 | W.PN.HOSP.TC ---
Today's Communication/Plan
-
Monitor vital signs and see plan
Monitor hemoglobin and platelet
Plan for EGD and colonoscopy today
Continue with PPI, octreotide
Assessment / Plan
Assessment / Plan
General: Well Developed, Well Nourished and No Apparent Distress
HEENT: NormoCephalic, Moist mucous membranes and Atraumatic
Respiratory: Clear
Cardiac: S1/S2 and Regular Rhythm; No Murmur or Rub
GI: Soft, Non Tender, Non Distended and Normal Bowel Sounds
Musculoskeletal: No Edema
Neuro: AO x 3 and Nonfocal/grossly intact
Psych: Calm
Acute blood loss anemia secondary to GI bleed
Iron deficiency anemia
# History of cirrhosis with variceal banding
# Portal gastropathy
- Hemoglobin 6.7 on admisison; s/p 2 units prbc. now 7.8
plts 68
- Heme positive stool
Continue with Protonix, octreotide
Plan for EGD and colon 04/03
- cw ceftriaxone
- GI following
Started IV iron
s/p EGD 03/04 with healing esophageal ulcer with no stigmata of recent bleeding, portal hypertensive gastropathy, gastric antral vascular ectasia. Mild duodenitis. Esophageal varices
#pancytopenia likely secondary to cirrhosis
-Continue to monitor
#DM type 2 with neuropathy
Insulin SS and accuchecks
-Trijardy continued
#Hoarseness, chronic s/p esophageal CA s/p resection
#Chronic LE lymphedema
#Chronic back pain with chronic opioid dependence
#HLD
-statin continued
#essential HTN
-coreg continued with hold parameter
DVT ppx SCDs
Full code
Anticipated Discharge: Within 24 hours
Subjective/Interval History
-
Date of Service: April 03, 2025
denies pain
Objective Data
-
Labs:
Laboratory Results
04/03/25
05:22
WBC 3.1 L
Hgb 7.8 L
Hct 24.0 L
Plt Count 68 L D
PT 14.8 H
INR 1.11
Sodium 138
Potassium 4.2
Chloride 106
Carbon Dioxide 30
BUN 18
Creatinine 0.8
Glucose 120 H
Calcium 8.0 L
Total Bilirubin 1.0
AST 22
ALT 18
Alkaline Phosphatase 86
Vital Signs:
Vital Signs
Temp Pulse Resp BP Pulse Ox
98.0 F 69 18 98/63 98
04/03/25 07:45 04/03/25 07:45 04/03/25 07:45 04/03/25 09:23 04/03/25 07:45
I&O
04/02/25 04/03/25 04/04/25
06:59 06:59 06:59
Intake Total 250 / 250 1890 / 1890
Output Total 200 / 200 560 / 560
Balance 50 / 50 1330 / 1330
--- NOTE | 2025-04-03 12:09 | W.PN.UPDATE ---
Update Note
Progress Note Update
EGD: actively bleeding GAVE in antrum, lots of old clots as well. Treated 4 with APC, did APC more diffusely in that area as well.
colon: poor prep.
Plan:
would focus on his stomach with eradication of GAVE as outpatient
I don't think he needs an inpt colon at this point.
d/w Charisse as well
[2025-04-03 12:29] LABS: Glucose - Point of Care 129 mg/dl (70-99)
[2025-04-03] MEDS: FERRLECIT 110 MG IV (14:18)
--- NOTE | 2025-04-03 15:15 | PTCARENOTE ---
patient returned from PACU via stretcher aao3, rates lower back pain 5/10. lungs clear, no sob, apical regular, abd soft, babsx4 quad, nontender, nondistended, no flatus. vss, will continue to monitor.
[2025-04-03] MEDS: FLUSH (NSS) 1 FLUSH IV (15:41)
[2025-04-03] MEDS: SANDOSTATIN IV ×2 (16:35→22:07)
[2025-04-03] MEDS: SANDOSTATIN 250 MCG IV (16:39)
[2025-04-03 16:53] LABS: Glucose - Point of Care 216 mg/dl (70-99)
[2025-04-03 18:35] LABS: AFP Male/Tumor Marker 1.07 ng/ml
--- NOTE | 2025-04-03 19:38 | PTCARENOTE ---
pt tolerating regular diet, will continue to monitor.
--- NOTE | 2025-04-03 19:45 | PTCARENOTE ---
Discussed with pt about use of chair/bed alarm. Pt continues to refuse. Education provided about fall risk and safety. Pt verbalizes understanding. Plan of care ongoing.
[2025-04-03] MEDS: ROCEPHIN 1000 MG IV (19:57)
[2025-04-03 21:07] LABS: Hematocrit 23.7 % (39.0-52.0); Hemoglobin 7.7 g/dL (13.0-18.0)
[2025-04-03 21:21] LABS: Glucose - Point of Care 196 mg/dl (70-99)
[2025-04-04] MEDS: SANDOSTATIN 250 MCG IV (02:47)
[2025-04-04 03:00] VITALS: BP 100/51
--- NOTE | 2025-04-04 08:41 | PTCARENOTE ---
Patient refused Vitals signs, Accu check, and CHG wipes this AM. RN notified. Plan of care ongoing.
[2025-04-04 09:35] LABS: Hematocrit 24.5 % (39.0-52.0); Hemoglobin 7.9 g/dL (13.0-18.0); Mean Corp Hgb Conc. 32.2 g/dL (33.0-37.0); Mean Corpuscular Volume 95.3 fL (80.0-94.0); Platelet Count 64 10^3/uL (130-400); Red Cell Dist. Width 16.0 % (11.5-14.5)
[2025-04-04 09:48] LABS: Blood Urea Nitrogen 12 mg/dl (9-20); Calcium 7.7 mg/dl (8.4-10.2); Carbon Dioxide 29 mmol/L (22-30); Chloride 105 mmol/L (98-107); Estimated Creatinine Clearance 84 ml/min; Glucose 253 mg/dl (70-99); Potassium 4.0 mmol/L (3.5-5.1); Sodium 137 mmol/L (135-145); eGFR > 60.00
[2025-04-04 10:00] VITALS: BP 92/47
[2025-04-04] MEDS: PROTONIX IV 40 MG IV (10:00)
[2025-04-04] MEDS: NSS (PRESERVATIVE FREE) 10 ML IV (10:00)
[2025-04-04] MEDS: FOLVITE 1 MG PO (10:00)
[2025-04-04] MEDS: PRAVACHOL 20 MG PO (10:00)
[2025-04-04] MEDS: MUCINEX PO ×2 (10:01→10:19)
[2025-04-04] MEDS: VITAMIN B-12 1000 MCG PO (10:01)
[2025-04-04] MEDS: OXYCONTIN (CONTROLLED RELEASE) PO ×2 (10:01→10:20)
[2025-04-04] MEDS: DESENEX/MITRAZOL/ZEASORB TOPICAL (10:08)
[2025-04-04] MEDS: NSS 500 IV (10:22)
[2025-04-04] MEDS: SANDOSTATIN IV (10:32)
[2025-04-04 11:10] VITALS: BP 118/49
[2025-04-04 11:21] LABS: Glucose - Point of Care 163 mg/dl (70-99)
--- NOTE | 2025-04-04 11:30 | W.PN.HOSP.TC ---
Today's Communication/Plan
-
dc
Assessment / Plan
Assessment / Plan
69yo M with CAD, s/p PCI, liver cirrhosis and esophageal varices s/p bading came with few days of black stool and worsening dizziness, found symptomatic anemia. 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
Treated 4 with APC. Planned to follow up as outpatient with repeated EGD as per GI. Hgb stable and patient did not report more blood in stool. Medically stable to be d/c home
A/P:
#Acute blood loss symptomatic anemia most likely upper GIB
two large bore IV, follow H&H, transfuse to keep >8 due to Hx of cardiac stents, consent signed in ED
PPI and octreotide drip
GI consult: s/p EGD on 04/03/25 - GAVE foudn and treated
Ceftriaxone ppx until D/C
#DM type 2 with neuropathy
Insulin SS and accuchecks, DM diet when able to eat
HgbA1c 5.5
#Constipation
laxatives
#Pancytopenia
2/2 cirrhosis
#Hoarseness, chronic s/p esophageal CA s/p resection
#Chronic LE lymphedema
#Chronic back pain
#HLD
#CAD
cont home meds
Unclear why not on aspirin - defer to established monitoring specialist
DVT ppx SCDs
Full code
I have spent at least 36min reviewing chart, test results, communication with consuoltants and providing direct patient care
Anticipated Discharge: Today
Subjective/Interval History
-
Date of Service: April 04, 2025
Objective Data
-
Labs:
Laboratory Results
04/04/25
09:10
WBC 2.9 L
Hgb 7.9 L
Hct 24.5 L
Plt Count 64 L
Sodium 137
Potassium 4.0
Chloride 105
Carbon Dioxide 29
BUN 12
Creatinine 0.8
Glucose 253 H
Calcium 7.7 L
Vital Signs:
Vital Signs
Temp Pulse Resp BP Pulse Ox
98.0 F 73 16 118/49 99
04/04/25 10:00 04/04/25 11:10 04/04/25 10:00 04/04/25 11:10 04/04/25 10:00
I&O
04/03/25 04/04/25 04/05/25
06:59 06:59 06:59
Intake Total 1890 / 1890 1170 / 1170
Output Total 560 / 560 700 / 700
Balance 1330 / 1330 470 / 470
--- NOTE | 2025-04-04 11:35 | W.DCSUMMARY ---
Addendum entered and electronically signed by Rodney Mensah MD 04/04/25 12:05:
Wrong D/c - see next
Original Note:
Discharge Summary
Discharge Data
Date of Admission: 04/01/25
Date of Discharge: 04/04/25
-
Pending Results: No
Hospital Course
77yo M with aphasia, DM, gout, BPH with chronic Schwartz, progressive cgnitive impairment and frequent sundowning at home with HS delirium came after fall witgh weakness and worsening ballance managed for CAUTI. Improved, however developed episode of
staring and as per neurology - most likely progressive dementia. Started on Risperidone. Evaluated by [facility] and had VSE, recommended outpatient GI for possible esophageal motility concerns. EEG negative for epileptiform activity, however diffuse
slowing seen. Ucx growing Pseuudomonas sensitive to ciprofloxacine. Medically stable to be d/c to STR as recommended by PT/OT and GI recommending further outpatient foillow up
I have spent at least 36min reviewing chart, test reuslts, communication with family bedside and providing direct patient care
Patient was managed for:
#CAUTI
#BPH with chronic urinary retention on Schwartz
#Dysphagia
#DIPIKA
#Delirium episodes on dementia, unspecified
#Acute metabolic encephalopathy 2/2 infection
#Ambulatory dysfunction
#Cronic aphasia
#GOut
#HLD
#DM type 2
#Peripheral neuropathy
Discharge Plan
-
Patient Disposition: Home (Routine Discharge)
Discharge Diagnosis/Procedures: GI bleed
Activity: As tolerated
Driving Restrictions: As prior to admission
Bathing Restrictions: None
Referrals:
Yesica Saez MD [Active, Gastroenterology] - in one week
Best Ray DO [Family Provider, Family Practice]
Prescriptions:
New
ferrous sulfate 325 mg (65 mg iron) tablet
325 mg PO DAILY Qty: 30 0RF
Continued
pravastatin 20 mg Tablet
20 mg PO DAILY Qty: 0
Patient Comments:
no pharmacy fills
sennosides [senna] 8.6 mg Tablet
17.2 mg PO DAILY
cyanocobalamin (vitamin B-12) 1,000 mcg Tablet
1,000 mcg PO DAILY
carvedilol 3.125 mg Tablet
3.125 mg PO BID
pantoprazole 40 mg Tablet,Delayed Release (Dr/Ec)
40 mg PO BID
folic acid 1 mg Tablet
1 mg PO DAILY
ergocalciferol (vitamin D2) [Vitamin D2] 1,250 mcg (50,000 unit) Capsule
1,250 mcg PO SA
Trijardy XR 12.5-2.5-1,000 mg Tablet, Ir - Er, Biphasic 24hr
1 tab PO BID
polyethylene glycol 3350 17 gram Powder In Packet
17 g PO DAILY Qty: 0 0RF
guaifenesin 600 mg tablet extended release 12hr
600 mg PO DAILY
acetaminophen 650 mg Tablet Extended Release
1,300 mg PO [id number] PRN (Reason: mild pain)
miconazole nitrate [Miconazorb AF] 2 % Powder
1 applic topical BID Qty: 85 0RF
oxycodone 15 mg tablet
15 mg PO Q6H
oxycodone [OxyContin] 20 mg tablet,oral only,ext.rel.12 hr
20 mg PO BID
Discharge Orders:
Discharge Patient (As Directed); Ordered 04/04/25
Ordered By: Rodney Mensah
Discharge Date and Time
Print Language: SAMMARINESE
--- NOTE | 2025-04-04 12:05 | W.DCSUMMARY ---
Discharge Summary
Discharge Data
Date of Admission: 04/01/25
Date of Discharge: 04/04/25
-
Pending Results: No
Hospital Course
69yo M with CAD, s/p PCI, liver cirrhosis and esophageal varices s/p bading came with few days of black stool and worsening dizziness, found symptomatic anemia. 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
Treated 4 with APC. Planned to follow up as outpatient with repeated EGD as per GI. Hgb stable and patient did not report more blood in stool. Medically stable to be d/c home
I have spent at least 36min reviewing chart, test results, communication with consultants and providing direct patient care
Patient was managed for:
#Acute blood loss symptomatic anemia most likely upper GIB
#LION
#DM type 2 with neuropathy
#Constipation
#Pancytopenia
#Hoarseness, chronic s/p esophageal CA s/p resection
#Chronic LE lymphedema
#Chronic back pain
#HLD
#CAD
Discharge Plan
-
Patient Disposition: Home (Routine Discharge)
Discharge Diagnosis/Procedures: GI bleed
Activity: As tolerated
Driving Restrictions: As prior to admission
Bathing Restrictions: None
Referrals:
Yesica Saez MD [Active, Gastroenterology] - in one week
Best Ray DO [Family Provider, Family Practice]
Prescriptions:
New
ferrous sulfate 325 mg (65 mg iron) tablet
325 mg PO DAILY Qty: 30 0RF
Continued
pravastatin 20 mg Tablet
20 mg PO DAILY Qty: 0
Patient Comments:
no pharmacy fills
sennosides [senna] 8.6 mg Tablet
17.2 mg PO DAILY
cyanocobalamin (vitamin B-12) 1,000 mcg Tablet
1,000 mcg PO DAILY
carvedilol 3.125 mg Tablet
3.125 mg PO BID
pantoprazole 40 mg Tablet,Delayed Release (Dr/Ec)
40 mg PO BID
folic acid 1 mg Tablet
1 mg PO DAILY
ergocalciferol (vitamin D2) [Vitamin D2] 1,250 mcg (50,000 unit) Capsule
1,250 mcg PO SA
Trijardy XR 12.5-2.5-1,000 mg Tablet, Ir - Er, Biphasic 24hr
1 tab PO BID
polyethylene glycol 3350 17 gram Powder In Packet
17 g PO DAILY Qty: 0 0RF
guaifenesin 600 mg tablet extended release 12hr
600 mg PO DAILY
acetaminophen 650 mg Tablet Extended Release
1,300 mg PO [id number] PRN (Reason: mild pain)
miconazole nitrate [Miconazorb AF] 2 % Powder
1 applic topical BID Qty: 85 0RF
oxycodone 15 mg tablet
15 mg PO Q6H
oxycodone [OxyContin] 20 mg tablet,oral only,ext.rel.12 hr
20 mg PO BID
Discharge Orders:
Discharge Patient (As Directed); Ordered 04/04/25
Ordered By: Rodney Mensah
Discharge Date and Time
Print Language: TAIWANESE
--- NOTE | 2025-04-04 12:15 | W.PN.GI.CBS2 ---
Today's Communication / Plan
-
Follow-up with GI as outpatient
Assessment / Plan
-
Pt is a 69yo with hx laryngeal CA with prior chemo radiation and biopsy with follow at [facility] , cirrhosis with ? hep C exposure but neg hep C ab testing vs MASH vs other, EV with recent banding at [place] and [place] , [facility] with prior
APC therapy, portal HTN, splenomegaly, prior diverticulitis, NIDDM, CAD with prior stenting and prior Plavix therapy(off since September), HTN, hypercholesterolemia, anemia with iron deficiency follow with Dr. Claudio Banda, spondylosis of cervical
spine. He has had chronic anemia and thrombocytopenia with several admissions to [facility] and with sespsi with hypoxemia but also recurrent anemia and bleeding with multiple GI procedures as noted. He had recent follow up with Dr. Lamar
from [place] [facility] and due follow up again in May. He has been followed closely with hematology with for hbg check but now noted with recurrent drop and dark stools and present for evaluation. In ER noted brown strongly heme + stool. On
admission WBC4, hbg 6,7, platelets 71,000, INR 1.13, with normal LFT's with MELD 8 on admission.
EGD--10/12/24- [place]- [place]-grade II EV eradicated/banded, multiple non bleeding angioectasia in stomach with APC, gastritis, normal duodenum
EGD--12/19/24- Dr Vinod Jackson, [place]- varix distal esophagus with red whale sign banded, GAVE with bleeding, s/p APC, normal duodenal bulb
colonoscopy about 8 years ago due for repeat
EGD- 02/13/25- Yesica Saez MD grade II EV no high risk stigmata, banded x 3, eradicated portal HTN gastropathy with active bleeding, s/p APC
02/14/25- US abdomen with doppler Normal ultrasound evaluation of the abdominal vasculature.
Limited visualization of the liver, relatively small in size, with fibrofatty parenchymal changes.Splenomegaly.
Cholelithiasis without sonographic features of acute cholecystitis. 7 mm common bile duct, considered top normal in size.
EGD- 03/04/25- [facility]- - Healing Esophageal ulcer with no stigmata of recent bleeding. - Portal hypertensive gastropathy. previously placed endoclip was note Gastric antral vascular ectasia. Treated with argon plasma coagulation (APC)- mild
Duodenitis. - Grade I esophageal varices. No specimens collected.
Impression:
-symptomatic anemia with prior iron deficiency acute blood loss--prior iron studies c/w chronic disease
-dark heme
-hx cirrhosis possible mash vs other prior hep C exposure with neg testing in January
-recent multiple EGD's with EV with banding, GAVE with APC, portal gastropathy, esophageal ulcer
- hypoxia/bronchiolitis in december
- pancytopenia
-hypoalbuminemia
-constipation -narcotic induced
-LE edema
other medical issues:
-chronic umbilical hernia
-laryngeal CA 2019 with prior Chemo/XRT
-splenomegaly
-prior diverticulitis
- NIDDM
-CAD with prior stenting and prior Plavix therapy
- HTN
- hypercholesterolemia
-spondylosis of cervical spine with chronic pain
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 Treated 4 with APC, did APC more diffusely in that area as well.
colon: poor prep.
PLAN:
No further bleeding. Repeat Hb stable this a.m.
Follow-up with GI as outpatient. Patient has an appointment with me 04/24
Continue follow-up with Dr. Lamar-pipe inspector at [facility]
Advised to follow-up with hematology as well
Requires repeat EGD with retreatment of GAVE as outpatient. Will also discussed about outpatient colonoscopy
will s/o.
Total Time Spent with Patient (in minutes): 35
Subjective
Subjective
Date of Service: April 04, 2025
No further bleeding
Objective
Data Reviewed
Laboratory Data:
Laboratory Results
04/04/25 09:10
04/04/25 09:10
Laboratory Results
PT 14.8 Sec (11.4-14.6) H 04/03/25 05:22
INR 1.11 04/03/25 05:22
APTT 31.2 Sec (23.4-35.0) 04/01/25 20:14
Total Bilirubin 1.0 mg/dl (0.2-1.3) 04/03/25 05:22
AST 22 U/L (17-59) 04/03/25 05:22
ALT 18 U/L (0-50) 04/03/25 05:22
Alkaline Phosphatase 86 U/L (38-126) 04/03/25 05:22
Lipase 42 U/L (23-300) 04/01/25 20:14
Vital Signs and I&O:
Vital Signs
Temp Pulse Resp BP Pulse Ox
98.0 F 73 16 118/49 99
04/04/25 10:00 04/04/25 11:10 04/04/25 10:00 04/04/25 11:10 04/04/25 11:30
I&O
04/03/25 04/04/25 04/05/25
06:59 06:59 06:59
Intake Total 1890 / 1890 1170 / 1170
Output Total 560 / 560 700 / 700
Balance 1330 / 1330 470 / 470
Physical Exam
Physical Exam
GI: Soft, Non Distended and Non Tender
[2025-04-04] MEDS: FLUZONE HIGH-DOSE 2025-26 0.5 ML IM (12:27)
--- NOTE | 2025-04-04 13:06 | PTCARENOTE ---
Pt refusing bed alarm despite risk for falls. Pt refusing am accucheck and vital signs. Md made aware. Prior to medication administration, pt allowed VS to be taken. BP low 92/47 HR 80. made aware. Coreg held. Pt refusing Oxycotin due to risk of
decreasing BP further. IV fluid bolus ordered and administered. Bp now 118/49. Pt eager to leave- d/c order place. Pt discharged at this time with to transport home.
== END 2025-04-04 13:25 | disposition home health service (06) | DRG 378 ==
LOC: 3 WEST ACU 22:03
PROVIDERS: Emergency Medicine; Internal Medicine; Nurse Practitioner Adult Health; Nurse Practitioner Family; Registered Nurse; ADMITTING PHYSICIAN Student in an Organized Health Care Education/Training Program; ATTENDING PHYSICIAN Internal Medicine; CONSULT PHYSICIAN Internal Medicine; EMERGENCY PHYSICIAN Emergency Medicine; FAMILY PHYSICIAN Family Medicine Adult Medicine
PROC: 30233N1 Transfusion of Nonautologous Red Blood Cells into Peripheral Vein, Percutaneous Approach (ICD-10-PCS; 2025-04-01)
PROC: 0DJD8ZZ Inspection of Lower Intestinal Tract, Via Natural or Artificial Opening Endoscopic (ICD-10-PCS; 2025-04-03)
PROC: 0W3P8ZZ Control Bleeding in Gastrointestinal Tract, Via Natural or Artificial Opening Endoscopic (ICD-10-PCS; 2025-04-03)
DX: K31.811 Angiodysplasia of stomach and duodenum with bleeding (principal); D61.818 Other pancytopenia; D62 Acute posthemorrhagic anemia; F11.20 Opioid dependence, uncomplicated; Z87.891 Personal history of nicotine dependence; I85.10 Secondary esophageal varices without bleeding; G89.29 Other chronic pain; E78.00 Pure hypercholesterolemia, unspecified; M54.9 Dorsalgia, unspecified; K74.60 Unspecified cirrhosis of liver; E11.40 Type 2 diabetes mellitus with diabetic neuropathy, unspecified; I10 Essential (primary) hypertension; D69.6 Thrombocytopenia, unspecified; K59.00 Constipation, unspecified; Z79.899 Other long term (current) drug therapy
CPT/HCPCS: 36430; 80048; 80053; 82105; 82607; 82728; 82746; 82962; 83036; 83540; 83550; 83690; 85014; 85018; 85025; 85027; 85610; 85730; 86850; 86900; 86901; 86920; 90662; 96374; 96375; 96376; 99291; G0008; J2354; J2916; P9016

== ENCOUNTER 2025-05-26 06:22 | Day surgery (SDC) | payer MEDICARE, OTHER, SELFPAY ==
[2025-05-26 10:33] LABS: Glucose - Point of Care 125 mg/dl (70-99)
== END 2025-05-26 12:01 | disposition home or self-care (01) ==
LOC: GI 06:22
PROVIDERS: ATTENDING PHYSICIAN Internal Medicine Gastroenterology
DX: D64.9 Anemia, unspecified (principal); K76.6 Portal hypertension; K31.819 Angiodysplasia of stomach and duodenum without bleeding; R58 Hemorrhage, not elsewhere classified; I85.00 Esophageal varices without bleeding; K22.89 Other specified disease of esophagus; K31.89 Other diseases of stomach and duodenum; T18.2XXA Foreign body in stomach, initial encounter; W44.8XXA Other foreign body entering into or through a natural orifice, initial encounter
CPT/HCPCS: 43255; 82962